=== PATIENT | male | born 1955 | race Caucasian/White ===

== ENCOUNTER 2019-07-25 07:09 | Outpatient (REF) | payer OTHER, SELFPAY ==
[2019-07-25 11:10] LABS: Estmated Average Glucose 120; Hemoglobin A1C 5.8 % (4.0-6.0)
[2019-07-25 11:36] LABS: Prostate Specific Antigen 0.91 ng/mL (0-4)
[2019-07-25 11:48] LABS: Chol HDL Ratio 7.61 mg/dL (1.0-5.00); Cholesterol 213 mg/dL (0-200); Glucose 98 mg/dL (65-115); HDL Cholesterol 28 mg/dL (60-100); LDL Cholesterol Calculated 116 mg/dL (50-129); LDL HDL Ratio 4.14 RATIO (0.00-3.22); Triglycerides 344 mg/dL (0-150)
[2019-07-25 12:11] LABS: Basophils % 0.8 %; Eosinophils # 0.2 10^3/uL (0.0-0.8); Eosinophils % 3.7 %; Hematocrit 45.3 % (42.0-52.0); Hemoglobin 15.3 g/dL (11.7-16.6); Lymphocytes # 1.4 10^3/uL (0.8-4.8); Mean Corpuscular HGB Conc 33.8 g/dL (30.0-36.0); Mean Corpuscular Hemoglobin 29.1 pg (28.0-34.0); Mean Corpuscular Volume 86.3 fL (80-94); Mean Platelet Volume 11.1 fL (7.4-10.4); Monocytes # 0.5 10^3/uL (0.2-0.9); Monocytes % 9.6 %; Neutrophils # 2.7 10^3/uL (1.8-7.7); Neutrophils % 56.1 %; Nucleated Red Blood Cells % 0 %; Platelet Count 218 10^3/cmm (130-400); Red Blood Count 5.25 10^6/uL (4.1-5.3); Red Cell Distribution Width 13.3 % (12.1-15.1); White Blood Count 4.9 10^3/uL (4.0-10.0)
== END 2019-07-25 07:10 | disposition home or self-care (01) ==
LOC: LAB 07:09
PROVIDERS: Family Provider Family Medicine; PCP Physician Assistant; Visit Provider Dermatology
DX: Z01.89 Encounter for other specified special examinations (principal)
CPT/HCPCS: 80061; 82947; 83036; 84153; 85025

== ENCOUNTER 2020-05-21 13:56 | Outpatient (CLI) | payer MEDICARE, SELFPAY ==
[2020-05-21 15:03] LABS: Basophils # 0.1 10^3/uL (0.0-0.1); Basophils % 0.6 %; Eosinophils # 0.1 10^3/uL (0.0-0.8); Eosinophils % 1.2 %; Hematocrit 32.7 % (42.0-52.0); Hemoglobin 10.9 g/dL (11.7-16.6); Lymphocytes # 0.7 10^3/uL (0.8-4.8); Lymphocytes % 6.9 %; Mean Corpuscular HGB Conc 33.3 g/dL (30.0-36.0); Mean Corpuscular Hemoglobin 27.6 pg (28.0-34.0); Mean Corpuscular Volume 82.8 fL (80-94); Mean Platelet Volume 9.6 fL (7.4-10.4); Monocytes # 0.7 10^3/uL (0.2-0.9); Monocytes % 6.8 %; Neutrophils # 8.09 10^3/uL (1.8-7.7); Neutrophils % 79.8 %; Nucleated Red Blood Cells % 0 %; Platelet Count 429 10^3/cmm (130-400); Red Blood Count 3.95 10^6/uL (4.1-5.3); Red Cell Distribution Width 13.8 % (12.1-15.1); White Blood Count 10.1 10^3/uL (4.0-10.0)
[2020-05-21 15:29] LABS: Alanine Aminotransferase 44 U/L (0-41); Albumin Level 3.4 g/dL (3.5-5.2); Alkaline Phosphatase 277 IU/L (40-130); Anion Gap 30.7 (5-19); Aspartate Amino Transferase 21 U/L (0-40); C Reactive Protein 182.7 mg/L (0.0-4.9); Calcium 8.9 mg/dL (8.5-10.5); Carbon Dioxide 15 mmol/L (22-29); Chloride 95 mmol/L (98-107); Free T4 Free Thyroxine 0.94 ng/dL (0.82-1.77); Globulin 3.5 g/dL (1.3-4.6); Glomerular Filtration Rate 3.3 mL/min (90-130); Glucose 107 mg/dL (65-115); Potassium 5.7 mmol/L (3.5-5.1); Sodium 135 mmol/L (136-145); Total Bilirubin 0.9 mg/dL (0.15-1.2); Total Protein 6.9 g/dL (6.6-8.7)
[2020-05-21 15:39] LABS: Blood Urea Nitrogen 168 mg/dL (8-23); Osmolality Calculated 336 mOsm/kg (285-295)
== END 2020-05-21 13:57 | disposition home or self-care (01) ==
LOC: LAB 14:00
PROVIDERS: PCP Physician Assistant; Visit Provider Family Medicine
DX: M10.00 Idiopathic gout, unspecified site (principal); R29.2 Abnormal reflex
CPT/HCPCS: 80053; 84439; 84550; 85025; 86140

== ENCOUNTER 2020-05-21 16:13 | Inpatient (IN) | payer MEDICARE, SELFPAY ==
[2020-05-21] VITALS (9 sets, daily range): BP systolic 137–187; BP diastolic 73–97; PULSE 59–81; RESP 12–20; TEMP 36.7; O2SAT 96–98; BMI 26.3
--- NOTE | 2020-05-21 16:35 | XRR_ITS ---
PROCEDURE INFORMATION: Exam: XR Chest, 1 View Exam date and time: 05/21/2020 4:52 PM Age: 64 years old Clinical indication: Cough; Additional info: Dyspnea/cough TECHNIQUE: Imaging protocol: XR of the chest Views: 1 view. COMPARISON: CR XR chest 2V* [id number] 05/21/2020 10:58 AM FINDINGS: Lungs: Unremarkable. No consolidation. Pleural space: Unremarkable. No pleural effusion. No pneumothorax. Heart/Mediastinum: Unremarkable. No cardiomegaly. Bones/joints: Unremarkable. XR/XR chest 1V portable [id number] IMPRESSION: No acute findings.
--- NOTE | 2020-05-21 16:36 | ECG_ITS ---
[facility] Test Date: 2020-05-21 Pat Name: Mikey Godinez Department: Room: Gender: Male Access Clinician: : 1955 Requested By: Tutu Jose Order Number: [id number] [place] MD: Kirsten Alvarez M.D. Measurements Intervals [place] Rate: 66 P: 16 MD: 151 QRS: 47 QRSD: 88 T: 51 QT: 377 QTc: 396 Interpretive Statements SINUS RHYTHM No previous ECG available for comparison Electronically Signed On 05-21-2020 19:15:53 ELECTRICIAN CRANE MAINTENANCE by Kirsten Alvarez M.D. [id number]
[2020-05-21 16:50] LABS: ABG PCO2 25.5 mmHg (35-45); ABG PH Result 7.29 (7.35-7.45); Alveolar-Arterial Oxygen Gradi 1.7 mmHg (5-10); Arterial Blood Gas Hematocrit 31.9 % (42-52); Base Excess ABG -12.6 mmol/L (-2.0-2.0); Blood Gas Allen Test Pos; Blood Gas Sample Site Radial, right; Blood Gas Sample Type Arterial; Carboxyhemoglobin 0.8 %THgb (0.4-20.1); HCO3 ABG 12.4 mmol/L (22-26); Ionized Calcium Level - ABG 1.1 mmol/L (1.1-1.4); Methemoglobin 0.9 % (0.4-1.5); Oxygen Device ROOM AIR; Oxygen Saturation ABG 97.7; Potassium Level - ABG 5.5 mmol/L (3.5-5.0); Total Hemoglobin 10.4 g/dL (14-18)
--- NOTE | 2020-05-21 17:27 | USR_ITS ---
PROCEDURE INFORMATION: Exam: US Retroperitoneal; Complete; Kidneys and Bladder Exam date and time: 05/21/2020 6:30 PM Age: 64 years old Clinical indication: Other: Labs; Additional info: Acute renal failure TECHNIQUE: Imaging protocol: Real-time ultrasound of the retroperitoneum with image documentation. Complete exam focused on the kidneys and bladder. COMPARISON: No relevant prior studies available. FINDINGS: Right kidney: The right kidney measures 10.4 x 5.7 x 6.0 cm. No mass, cyst, calculus, or hydronephrosis. Left kidney: The left kidney measures 13.2 x 6.3 x 6.5 cm. No mass, cyst, calculus, or hydronephrosis. Urinary bladder: The urinary bladder is decompressed. US/US renal BI* [id number] IMPRESSION: Unremarkable renal ultrasound.
--- NOTE | 2020-05-21 18:07 | ED_ITS ---
Documented by User: Miles Mars DO 05/22/20 04:06 HPI - Recheck/Abnormal Lab/Rx General: Chief Complaint: Recheck/Abnormal Lab/Rx Stated Complaint: KIDNEY FAILURE Time Seen by Provider: 05/21/20 16:34 PFSH ED PFSH: Medical History Gout Surgical History H/O left inguinal hernia repair Laparoscopic extraperitoneal History of circumcision Normal colonoscopy 03/2007 Family History Brother Cancer Prostate Other Osteoarthritis Osteoporosis Denies family history of Anesthesia complication Bleeding disorder Social History Smoking and tobacco status: never smoked Alcohol intake: current Alcohol intake frequency: holidays/special occasions only Lives independently: Yes Household members: spouse Marital status: Current occupational status: employed Course Vital Signs: Vital signs: Vital Signs Temperature 97.6 F 05/22/20 04:00 Pulse Rate 59 L 05/22/20 04:00 Respiratory Rate 18 05/22/20 04:00 Blood Pressure 161/87 05/22/20 04:00 Pulse Oximetry 100 05/22/20 04:00 MDM - Recheck/Abnormal Lab/Rx MDM Narrative: Medical decision making narrative: 64-year-old male checked out to me by Dr. Slade at shift change. This gentleman had been sent over from his primary care physician's office, not feeling well. He was found to be in renal failure there. His BUN is 172. His creatinine is 16.2. His potassium is 6.3. He has been given insulin, glucose, and albuterol for this for the time being. His hemoglobin is 10. He has a gap in the 30s, with a pH of 7.29 on blood gas. He is not making any urine currently. He has no obstructive symptoms at all. Renal ultrasound appears normal by report. He will be admitted with nephrology consultation. Lab Data: Labs: Lab Results 05/21/20 05/21/20 05/21/20 Range/Units 16:35 18:16 18:16 WBC 9.8 (4.0-10.0) 10^3/ uL RBC 3.59 L (4.1-5.3) 10^6/u L Hgb 9.9 L (11.7-16.6) g/dL Hct 29.7 L (42.0-52.0) % MCV 82.7 (80-94) fL MCH 27.6 L (28.0-34.0) pg MCHC 33.3 (30.0-36.0) g/dL RDW 13.9 (12.1-15.1) % Plt Count 385 (130-400) 10^3/c mm MPV 9.4 (7.4-10.4) fL Neut % (Auto) 89.0 % Lymph % (Auto) 4.2 % [place] % (Auto) 2.2 % Eos % (Auto) 0.4 % Baso % (Auto) 0.3 % Neut # (Auto) 8.74 H (1.8-7.7) 10^3/u L Lymph # (Auto) 0.4 L (0.8-4.8) 10^3/u L [place] # (Auto) 0.2 (0.2-0.9) 10^3/u L Eos # (Auto) 0.0 (0.0-0.8) 10^3/u L Baso # (Auto) 0.0 (0.0-0.1) 10^3/u L Nucleated RBC % (a uto) 0 % Nucleated RBCs # 0.0 /100WBC Specimen Type Arterial Sample Site Radial, right ABG pH 7.29 L (7.35-7.45) ABG pCO2 25.5 L (35-45) mmHg ABG pO2 103.0 H (80.0-100.0) mmH g ABG HCO3 12.4 L (22-26) mmol/L ABG O2 Saturation 97.7 ABG Base Excess -12.6 L (-2.0-2.0) mmol/ L Micha Test Pos A-a O2 Gradient 1.7 L (5-10) mmHg Hematocrit 31.9 L (42-52) % Hgb O2 Saturation 96.0 (95-100) % Carboxyhemoglobin 0.8 (0.4-20.1) %THgb Methemoglobin 0.9 (0.4-1.5) % Total Hemoglobin 10.4 L (14-18) g/dL Sodium 135.0 134 L (131-143) mmol/L Potassium 5.5 H 6.3 H (3.5-5.0) mmol/L Glucose 142.0 H 144 H (70-115) mg/dL Ionized Calcium 1.1 (1.1-1.4) mmol/L O2 Delivery Device Room air FiO2 21.0 % Wine Cellar Worker ID Jlg Chloride 95 L (98-107) mmol/L Carbon Dioxide 13 L (22-29) mmol/L Anion Gap 32.3 H (5-19) BUN 172 H* (8-23) mg/dL Creatinine 16.2 H* (0.7-1.2) mg/dL GFR Calculation 3.0 L (90-130) mL/min Calculated Osmolal ity 337 H (285-295) mOsm/k g Lactic Acid (0.5-2.2) mmol/L Calcium 8.8 (8.5-10.5) mg/dL Phosphorus 10.3 H* (2.5-4.5) mg/dL Magnesium 2.9 H (1.7-2.3) mg/dL Total Bilirubin 0.8 (0.15-1.2) mg/dL AST 16 (0-40) U/L ALT 38 (0-41) U/L Alkaline Phosphata se 248 H (40-130) IU/L Creatine Kinase 60 (39-308) U/L Troponin T Baselin e (0-15) ng/L Total Protein 7.2 (6.6-8.7) g/dL Albumin 3.2 L (3.5-5.2) g/dL Globulin 4.0 (1.3-4.6) g/dL 05/21/20 05/21/20 Range/Units 18:16 18:16 WBC (4.0-10.0) 10^3/ uL RBC (4.1-5.3) 10^6/u L Hgb (11.7-16.6) g/dL Hct (42.0-52.0) % MCV (80-94) fL MCH (28.0-34.0) pg MCHC (30.0-36.0) g/dL RDW (12.1-15.1) % Plt Count (130-400) 10^3/c mm MPV (7.4-10.4) fL Neut % (Auto) % Lymph % (Auto) % [place] % (Auto) % Eos % (Auto) % Baso % (Auto) % Neut # (Auto) (1.8-7.7) 10^3/u L Lymph # (Auto) (0.8-4.8) 10^3/u L [place] # (Auto) (0.2-0.9) 10^3/u L Eos # (Auto) (0.0-0.8) 10^3/u L Baso # (Auto) (0.0-0.1) 10^3/u L Nucleated RBC % (a uto) % Nucleated RBCs # /100WBC Specimen Type Sample Site ABG pH (7.35-7.45) ABG pCO2 (35-45) mmHg ABG pO2 (80.0-100.0) mmH g ABG HCO3 (22-26) mmol/L ABG O2 Saturation ABG Base Excess (-2.0-2.0) mmol/ L Micha Test A-a O2 Gradient (5-10) mmHg Hematocrit (42-52) % Hgb O2 Saturation (95-100) % Carboxyhemoglobin (0.4-20.1) %THgb Methemoglobin (0.4-1.5) % Total Hemoglobin (14-18) g/dL Sodium (131-143) mmol/L Potassium (3.5-5.0) mmol/L Glucose (70-115) mg/dL Ionized Calcium (1.1-1.4) mmol/L O2 Delivery Device FiO2 % Wine Cellar Worker ID Chloride (98-107) mmol/L Carbon Dioxide (22-29) mmol/L Anion Gap (5-19) BUN (8-23) mg/dL Creatinine (0.7-1.2) mg/dL GFR Calculation (90-130) mL/min Calculated Osmolal ity (285-295) mOsm/k g Lactic Acid 0.5 (0.5-2.2) mmol/L Calcium (8.5-10.5) mg/dL Phosphorus (2.5-4.5) mg/dL Magnesium (1.7-2.3) mg/dL Total Bilirubin (0.15-1.2) mg/dL AST (0-40) U/L ALT (0-41) U/L Alkaline Phosphata se (40-130) IU/L Creatine Kinase (39-308) U/L Troponin T Baselin e 60 H (0-15) ng/L Total Protein (6.6-8.7) g/dL Albumin (3.5-5.2) g/dL Globulin (1.3-4.6) g/dL Discharge Plan Discharge Patient Disposition: Admitted As Inpatient Admit Provider: Myron Osorio Clinical Impression: Acute kidney injury superimposed on chronic kidney disease Condition: Stable Coding Level of Care Code ED Autism Tutor for Chg Fwd Documented by User: Tutu Slade DO 05/22/20 09:19 HPI - Recheck/Abnormal Lab/Rx General: Chief Complaint: Recheck/Abnormal Lab/Rx Stated Complaint: KIDNEY FAILURE Time Seen by Provider: 05/21/20 16:34 History of Present Illness: HPI narrative: 64-year-old male presents emergency room at the direction of his PCP. He has not seen his PCP for quite some time went there to see him for gout swelling the legs and concern of elevated blood pressure. Laboratory work done there showed a creatinine that was markedly elevated at over 15 patient was directed here. His biggest complaint here is a swelling and discomfort in his legs as well as a generalized just not feeling we ll lately. He has noticed some tremors as well as markedly decreased urine output recently. MD complaint: abnormal lab Initial visit (ago): hour(s) Initial visit for: other Returns today for: called because of abnormal lab/test Symptoms since prior visit: worsening swelling Associated symptoms: shortness of breath, rash, malaise and nausea Review of Systems Const: Denies: fever(s), chills, body aches, change in appetite, fatigue or malaise ENMT: Denies: throat pain, ear or mastoid pain, nasal discharge or nasal congestion Card: Denies: chest pain, edema, dyspnea on exertion or orthopnea Resp: Denies: dyspnea, productive cough or non-productive cough GI: Denies: abdominal pain, nausea, vomiting, hematemesis, coffee ground emesis, diarrhea, constipation, bloating, hematochezia or melena : Denies: flank pain, dysuria, urinary frequency or urinary urgency Skin/Breast: Denies: rash or pruritus PFSH ED PFSH: Medical History Gout Surgical History H/O left inguinal hernia repair Laparoscopic extraperitoneal History of circumcision Normal colonoscopy 03/2007 Family History Brother Cancer Prostate Other Osteoarthritis Osteoporosis Denies family history of Anesthesia complication Bleeding disorder Social History Smoking and tobacco status: never smoked Alcohol intake: current Alcohol intake frequency: holidays/special occasions only Lives independently: Yes Household members: spouse Marital status: Current occupational status: employed Physical Exam Const: COMMON NORMALS: no acute distress GENERAL APPEARANCE: cooperative and comfortable ORIENTATION/CONSCIOUSNESS: Yes awake, Yes oriented to person, Yes oriented to place and Yes oriented to time HENMT: COMMON NORMALS: normocephalic, atraumatic and hearing grossly normal bilaterally HEAD & SCALP: normocephalic and atraumatic Eye: COMMON NORMALS: Equal, round and reactive pupils present, EOMs intact bilaterally, conjunctivae normal and no scleral icterus CONJUNCTIVA: Yes conjunctivae normal PUPIL: Yes Equal, round and reactive pupils present Neck/C-Spine: COMMON NORMALS: no JVD Lymph: LYMPHATIC: no lymphadenopathy noted and no lymphedema noted Resp: COMMON NORMALS: normal respiratory effort, No retractions, No use of accessory muscles and clear to auscultation bilaterally AUSCULTATION: clear to auscultation bilaterally Cardio: COMMON NORMALS: no JVD, regular rate, regular rhythm and No murmurs present (Cardio) RATE: regular rate RHYTHM: regular rhythm GI: COMMON NORMALS: Soft to palpation and No hepatosplenomegaly present AUSCULTATION: Yes normoactive bowel sounds PALPATION: Yes Soft to palpation, No Tenderness to palpation present (GI), No Guarding due to palpation present (GI) and Yes No hepatosplenomegaly present Extremity: COMMON NORMALS: normal to inspection, capillary refill normal, no clubbing, cyanosis or edema, no calf tenderness and no pedal edema Neuro: SENSORIUM/ORIENTATION: Yes oriented to person, Yes oriented to place and Yes oriented to time Skin: COMMON NORMALS: no rashes or lesions noted GENERAL SKIN EXAM: no rashes or lesions noted Course Vital Signs: Vital signs: Vital Signs Temperature 97.6 F 05/22/20 04:00 Pulse Rate 59 L 05/22/20 04:00 Respiratory Rate 18 05/22/20 04:00 Blood Pressure 161/87 05/22/20 04:00 Pulse Oximetry 100 05/22/20 04:00 MDM - Recheck/Abnormal Lab/Rx MDM Narrative: Medical decision making narrative: Acute renal failure with creatinine done earlier today at 15 1. Patient will be admitted almost certainly. Lab results not back yet discussed with Dr. Mars he will assume care of patient see his notes for final diagnosis and disposition Lab Data: Labs: Lab Results 05/21/20 05/21/20 05/21/20 Range/Units 16:35 18:16 18:16 WBC 9.8 (4.0-10.0) 10^3/ uL RBC 3.59 L (4.1-5.3) 10^6/u L Hgb 9.9 L (11.7-16.6) g/dL Hct 29.7 L (42.0-52.0) % MCV 82.7 (80-94) fL MCH 27.6 L (28.0-34.0) pg MCHC 33.3 (30.0-36.0) g/dL RDW 13.9 (12.1-15.1) % Plt Count 385 (130-400) 10^3/c mm MPV 9.4 (7.4-10.4) fL Neut % (Auto) 89.0 % Lymph % (Auto) 4.2 % [place] % (Auto) 2.2 % Eos % (Auto) 0.4 % Baso % (Auto) 0.3 % Neut # (Auto) 8.74 H (1.8-7.7) 10^3/u L Lymph # (Auto) 0.4 L (0.8-4.8) 10^3/u L [place] # (Auto) 0.2 (0.2-0.9) 10^3/u L Eos # (Auto) 0.0 (0.0-0.8) 10^3/u L Baso # (Auto) 0.0 (0.0-0.1) 10^3/u L Nucleated RBC % (a uto) 0 % Nucleated RBCs # 0.0 /100WBC Specimen Type Arterial Sample Site Radial, right ABG pH 7.29 L (7.35-7.45) ABG pCO2 25.5 L (35-45) mmHg ABG pO2 103.0 H (80.0-100.0) mmH g ABG HCO3 12.4 L (22-26) mmol/L ABG O2 Saturation 97.7 ABG Base Excess -12.6 L (-2.0-2.0) mmol/ L Micha Test Pos A-a O2 Gradient 1.7 L (5-10) mmHg Hematocrit 31.9 L (42-52) % Hgb O2 Saturation 96.0 (95-100) % Carboxyhemoglobin 0.8 (0.4-20.1) %THgb Methemoglobin 0.9 (0.4-1.5) % Total Hemoglobin 10.4 L (14-18) g/dL Sodium 135.0 134 L (131-143) mmol/L Potassium 5.5 H 6.3 H (3.5-5.0) mmol/L Glucose 142.0 H 144 H (70-115) mg/dL Ionized Calcium 1.1 (1.1-1.4) mmol/L O2 Delivery Device Room air FiO2 21.0 % Wine Cellar Worker ID Jlg Chloride 95 L (98-107) mmol/L Carbon Dioxide 13 L (22-29) mmol/L Anion Gap 32.3 H (5-19) BUN 172 H* (8-23) mg/dL Creatinine 16.2 H* (0.7-1.2) mg/dL GFR Calculation 3.0 L (90-130) mL/min Calculated Osmolal ity 337 H (285-295) mOsm/k g Lactic Acid (0.5-2.2) mmol/L Calcium 8.8 (8.5-10.5) mg/dL Phosphorus 10.3 H* (2.5-4.5) mg/dL Magnesium 2.9 H (1.7-2.3) mg/dL Total Bilirubin 0.8 (0.15-1.2) mg/dL AST 16 (0-40) U/L ALT 38 (0-41) U/L Alkaline Phosphata se 248 H (40-130) IU/L Creatine Kinase 60 (39-308) U/L Troponin T Baselin e (0-15) ng/L Total Protein 7.2 (6.6-8.7) g/dL Albumin 3.2 L (3.5-5.2) g/dL Globulin 4.0 (1.3-4.6) g/dL 05/21/20 05/21/20 Range/Units 18:16 18:16 WBC (4.0-10.0) 10^3/ uL RBC (4.1-5.3) 10^6/u L Hgb (11.7-16.6) g/dL Hct (42.0-52.0) % MCV (80-94) fL MCH (28.0-34.0) pg MCHC (30.0-36.0) g/dL RDW (12.1-15.1) % Plt Count (130-400) 10^3/c mm MPV (7.4-10.4) fL Neut % (Auto) % Lymph % (Auto) % [place] % (Auto) % Eos % (Auto) % Baso % (Auto) % Neut # (Auto) (1.8-7.7) 10^3/u L Lymph # (Auto) (0.8-4.8) 10^3/u L [place] # (Auto) (0.2-0.9) 10^3/u L Eos # (Auto) (0.0-0.8) 10^3/u L Baso # (Auto) (0.0-0.1) 10^3/u L Nucleated RBC % (a uto) % Nucleated RBCs # /100WBC Specimen Type Sample Site ABG pH (7.35-7.45) ABG pCO2 (35-45) mmHg ABG pO2 (80.0-100.0) mmH g ABG HCO3 (22-26) mmol/L ABG O2 Saturation ABG Base Excess (-2.0-2.0) mmol/ L Micha Test A-a O2 Gradient (5-10) mmHg Hematocrit (42-52) % Hgb O2 Saturation (95-100) % Carboxyhemoglobin (0.4-20.1) %THgb Methemoglobin (0.4-1.5) % Total Hemoglobin (14-18) g/dL Sodium (131-143) mmol/L Potassium (3.5-5.0) mmol/L Glucose (70-115) mg/dL Ionized Calcium (1.1-1.4) mmol/L O2 Delivery Device FiO2 % Wine Cellar Worker ID Chloride (98-107) mmol/L Carbon Dioxide (22-29) mmol/L Anion Gap (5-19) BUN (8-23) mg/dL Creatinine (0.7-1.2) mg/dL GFR Calculation (90-130) mL/min Calculated Osmolal ity (285-295) mOsm/k g Lactic Acid 0.5 (0.5-2.2) mmol/L Calcium (8.5-10.5) mg/dL Phosphorus (2.5-4.5) mg/dL Magnesium (1.7-2.3) mg/dL Total Bilirubin (0.15-1.2) mg/dL AST (0-40) U/L ALT (0-41) U/L Alkaline Phosphata se (40-130) IU/L Creatine Kinase (39-308) U/L Troponin T Baselin e 60 H (0-15) ng/L Total Protein (6.6-8.7) g/dL Albumin (3.5-5.2) g/dL Globulin (1.3-4.6) g/dL Discharge Plan Discharge Patient Disposition: Admitted As Inpatient Admit Provider: Myron Osorio Clinical Impression: Acute kidney injury superimposed on chronic kidney disease Condition: Stable Coding Level of Care Code ED Autism Tutor for Candy Fallon
[2020-05-21 18:34] LABS: Basophils % 0.3 %; Eosinophils % 0.4 %; Hematocrit 29.7 % (42.0-52.0); Hemoglobin 9.9 g/dL (11.7-16.6); Lymphocytes # 0.4 10^3/uL (0.8-4.8); Lymphocytes % 4.2 %; Mean Corpuscular HGB Conc 33.3 g/dL (30.0-36.0); Mean Corpuscular Hemoglobin 27.6 pg (28.0-34.0); Mean Corpuscular Volume 82.7 fL (80-94); Mean Platelet Volume 9.4 fL (7.4-10.4); Monocytes # 0.2 10^3/uL (0.2-0.9); Monocytes % 2.2 %; Neutrophils # 8.74 10^3/uL (1.8-7.7); Nucleated Red Blood Cells % 0 %; Platelet Count 385 10^3/cmm (130-400); Red Blood Count 3.59 10^6/uL (4.1-5.3); Red Cell Distribution Width 13.9 % (12.1-15.1); White Blood Count 9.8 10^3/uL (4.0-10.0)
[2020-05-21 19:01] LABS: Lactic Sepsis W/Reflex 0.5 mmol/L (0.5-2.2)
[2020-05-21 19:02] LABS: Alanine Aminotransferase 38 U/L (0-41); Albumin Level 3.2 g/dL (3.5-5.2); Alkaline Phosphatase 248 IU/L (40-130); Anion Gap 32.3 (5-19); Aspartate Amino Transferase 16 U/L (0-40); Calcium 8.8 mg/dL (8.5-10.5); Carbon Dioxide 13 mmol/L (22-29); Chloride 95 mmol/L (98-107); Creatine Phosphokinase 60 U/L (39-308); Glucose 144 mg/dL (65-115); Magnesium 2.9 mg/dL (1.7-2.3); Potassium 6.3 mmol/L (3.5-5.1); Sodium 134 mmol/L (136-145); Total Bilirubin 0.8 mg/dL (0.15-1.2); Total Protein 7.2 g/dL (6.6-8.7)
[2020-05-21 19:04] LABS: Troponin(5th) Baseline 60 ng/L (0-15)
[2020-05-21 19:13] LABS: Blood Urea Nitrogen 172 mg/dL (8-23); Osmolality Calculated 337 mOsm/kg (285-295); Phosphorus 10.3 mg/dL (2.5-4.5)
[2020-05-21] MEDS: insulin regular-human 100 units/1 mL 10 UNIT IVP (20:10)
[2020-05-21] MEDS: dextrose 50% syringe 50 mL IVP (20:12)
--- NOTE | 2020-05-21 20:51 | PM.HP ---
Providers/Chief Complaint Primary Care Provider: Nery Peñaloza Chief Complaint: KIDNEY FAILURE History of Present Illness Mikey Godinez is a 64 year old male with past medical history of recently diagnosed gout, currently on prednisone, was sent in by his primary care physician after he found that his BUN and creatinine severely derailed on routine lab work-up (BUN 172/serum creatinine 16.2 ).Currently he is complaining of abnormal sensations around his belly, dry heaves, nausea.He denies any chest pain, shortness of breath, headache, fever, cough, back pain, abdominal pain. Patient was at his primary care physician for gout management, he was started on prednisone, and routine labs were done. According to the patient his p.o. oral intake has been poor routinely due to his work, denies any use of NSAIDs, he denies any use of herbal medication.He denies any known past medical history of hypertension and diabetes. He does make urine but his urine output has progressively decreased,deny any difficulty passing urine. ECA Course: Pertinent Labs: BUN/SCR: 172/16.2 , K: 6.3 , Phosphorus : 10.3 , Ma.9 H/H: 9.9/ AB.29, PCO2: 25, PO2: 103 HCO3: 13 Imaging study : Xray chest : B/L Clear lungs gasca , no infiltrate, no pulmonary congestion, no PTX, No Pleural effusion. US renal BI: Right kidney: The right kidney measures 10.4 x 5.7 x 6.0 cm. No mass, cyst, calculus, or hydronephrosis. Left kidney: The left kidney measures 13.2 x 6.3 x 6.5 cm. No mass, cyst, calculus, or hydronephrosis. Urinary bladder: The urinary bladder is decompressed. XR thoracic spine 3V: Negative thoracic spine. EKG: SINUS RHYTHM.With Peaked T wave, Rate: 66, Qtc: 396 , GA: 151 ,QRS: 47 Medication : Hyperkalemia Cocktail was given : 10 U Regular insulin, Dextorse Review of Systems Const: Denies: fever(s), chills, body aches, change in appetite or diaphoresis Card: Denies: palpitations, edema, swelling of feet/ankles, dyspnea on exertion, orthopnea or leg pain with exertion Resp: Denies: dyspnea, productive cough, wheezing or pain on inspiration GI: Denies: abdominal pain, vomiting, diarrhea or constipation : Denies: flank pain Musc: Denies: back pain, extremity pain or extremity swelling Neuro: Denies: headache(s) or difficulty walking Medications/Allergies Home Medications Medication Instructions Recorded Confirmed Last Taken Type ascorbic acid (vitamin C) [Vitamin 500 mg PO DAILY PRN 05/21/20 05/21/20 Unknown History C] cholecalciferol (vitamin D3) 2,000 unit PO DAILY PRN 05/21/20 05/21/20 Unknown History [Vitamin D3] cyanocobalamin (vitamin B-12) 100 mcg PO DAILY PRN 05/21/20 05/21/20 Unknown History [Vitamin B-12] prednisone See Rx Instructions .ROUTE .COMPLEX 05/21/20 05/21/20 05/21/20 15:00 History 4 tabs first dose sildenafil 25 - 50 mg PO PRN 05/21/20 05/21/20 Unknown History Allergies Allergy/AdvReac Type Severity Reaction Status Date / Time Penicillins Allergy Unknown Verified 05/21/20 17:25 PFSH Acute PFSH: Surgical History H/O left inguinal hernia repair History of circumcision Family History Brother Cancer Prostate Other Osteoarthritis Osteoporosis Denies family history of Anesthesia complication Bleeding disorder Social History Smoking and tobacco status: never smoked Alcohol intake: current Alcohol intake frequency: holidays/special occasions only Lives independently: Yes Household members: spouse Marital status: Current occupational status: employed Vitals/I&O/Wt Last Vital Signs Temp 98.0 F 05/21/20 16:19 Pulse 63 05/21/20 18:30 Resp 20 H 05/21/20 18:30 BP 155/89 05/21/20 18:30 Pulse Ox 97 05/21/20 18:30 Weight last 48 hrs Weight 76.204 kg Physical Exam Const: COMMON NORMALS: patient oriented x3 HENMT: COMMON NORMALS: normocephalic and atraumatic HEAD & SCALP: normocephalic and atraumatic EXTERNAL EAR: Yes external ears normal Eye: COMMON NORMALS: no scleral icterus GENERAL EYE: appearance normal, both eyes and all related structures Chest: COMMONS NORMALS: normal inspection of the chest and normal palpation of entire chest wall CHEST: Yes Symmetrical chest wall rise Resp: COMMON NORMALS: normal respiratory effort, No retractions, No use of accessory muscles and clear to auscultation bilaterally EFFORT & INSPECTION: Yes symmetric chest movement AUSCULTATION: clear to auscultation bilaterally Cardio: COMMON NORMALS: regular rate, regular rhythm, S1 normal heart sound present, S2 normal heart sound present, No gallops present (Cardio), No murmurs present (Cardio), No rub (Cardio) and Peripheral pulses 2+ throughout RATE: regular rate RHYTHM: regular rhythm HEART SOUNDS: S1 normal heart sound present and S2 normal heart sound present PERIPHERAL PULSES: Peripheral pulses 2+ throughout GI: COMMON NORMALS: Normal to inspection, nondistended, normoactive bowel sounds present, Soft to palpation, non-tender, No hepatosplenomegaly present and no masses AUSCULTATION: Yes normoactive bowel sounds PALPATION: Yes Soft to palpation and Yes No hepatosplenomegaly present RECTAL EXAM: Yes deferred : COMMON NORMALS: Yes no CVA tenderness BLADDER/KIDNEY EXAM: Yes no CVA tenderness Back/Pelvis: COMMON NORMALS: no CVA tenderness Extremity: COMMON NORMALS: no clubbing, cyanosis or edema and no pedal edema Neuro: COMMON NORMALS: patient oriented x3 Data : 05/21/20 18:16 05/21/20 18:16 A&P Assessment and plan (1) Acute kidney injury superimposed on chronic kidney disease: LOS on Progressively worseing CKD Stage III/IV I.V Hydration 125 cc hr Random Urine sodium, creatinine, protein Measure intake/ output Renal consult in am for Possible H.D Avoid Nephrotoxic medications Status: Acute (2) Hyperkalemia: Came in with SCR of :6.3 EKG: SINUS RHYTHM.With Peaked T wave, Rate: 66, Qtc: 396 , GA: 151 ,QRS: 47 Hyperkalemia Cocktail was given : 10 U Regular insulin, Dextorse Monitor BMP. Status: Acute (3) Gout: Currently on Prednisone 40 mg oral daily Status: Acute (4) Anemia: Likely anemia of Chronic kidney disease. Anemia Director Of Retention CBC for now. No need for transfusion. Status: Acute (5) Hyperphosphatemia: Calcium acetate 1334 mo po TID with meals Status: Acute (6) Metabolic acidosis: Inc Anion gap metabolic acidosis 2/2 to LOS ON CKD ABG : AB.29, PCO2: 25, PO2: 103 HCO3: 13 Sodium Bicarbonate 1300 mg PO TID Status: Acute Additional A&P Information DVT PPX: Heparin 5000 sc q12 Code Status : Full code Disposition : Home Attestations Medical Necessity Statement*: Patient needs to be in hospital for the management of ARF , Hyperkalemia.Anticipated length of stay greater then 2 midnights. Coding Level of Care Code Acute Bonding And Composite Fabricator for Chg Fwd Diagnoses Acute kidney injury superimposed on chronic kidney disease N17.9; N18.9 Hyperkalemia E87.5 Gout M10.9 Anemia D64.9 Hyperphosphatemia E83.39 Metabolic acidosis E87.2
[2020-05-21] MEDS: sodium chloride 0.9% 1,000 ML 125 ML IV (22:18)
[2020-05-21] MEDS: sodium bicarbonate 650 mg Tablet 1300 MG PO (22:21)
[2020-05-21] MEDS: heparin 5,000 unit/mL INJ 1 mL 5000 UNIT SUBCUT (22:21)
--- NOTE | 2020-05-21 22:36 | ECG_ITS ---
[facility] Test Date: 2020-05-21 Pat Name: Mikey Godinez Department: Room: Gender: Male Abstract Maker: : 1955 Requested By: Tutu Jose Order Number: [id number] [place] MD: Kirsten Alvarez M.D. Measurements Intervals [place] Rate: 59 P: 21 MO: 148 QRS: 55 QRSD: 90 T: 56 QT: 398 QTc: 396 Interpretive Statements SINUS BRADYCARDIA MINIMAL VOLTAGE CRITERIA FOR LVH, CONSIDER NORMAL VARIANT [MEETS CRITERIA IN ONE OF: R(aVL), S(V1), R(V5), R(V5/V6)+S(V1)] Compared to ECG 05/21/2020 17:33:15 Sinus rhythm no longer present Electronically Signed On 05-21-2020 19:29:03 DIRECTOR CLINICAL RESEARCH by Kirsten Alvarez M.D. [id number]
--- NOTE | 2020-05-21 22:59 | PC.NURSE ---
Received patient from ED via wheelchair. Patient is ambulatory ad anton. Patient attempted to urinate without success. Fluids started and medication given as ordered. Discussed medications and fluids. Patient verbalized understanding. Patient diagnosed with gout today and started on prednisone. Patient had only taken one dose prior to admission. Admission completed as documented.
[2020-05-22] VITALS (22 sets, daily range): BP systolic 94–170; BP diastolic 63–90; PULSE 45–80; RESP 12–27; TEMP 35.6–37; O2SAT 97–100
--- NOTE | 2020-05-22 | SCC_ITS ---
Procedure Done: Placement of 16 [place] 28 cm HemoSplit tunneled hemodialysis catheter into the right internal jugular vein with intraoperative ultrasound and fluoroscopy interpretation. 5.5 seconds of fluoroscopic guidance, for a cumulative dose of 0.47 mGy, was provided to Dr. Mckeon by the radiology department. C-arm images of the chest were saved for the patient's permanent record. ABHILASHD
[2020-05-22] MEDS: sodium polystyrene sulfonate 15 gm/60 mL Btl PO (01:07)
[2020-05-22 02:48] LABS: Hematocrit 27.5 % (42.0-52.0); Hemoglobin 9.2 g/dL (11.7-16.6); Mean Corpuscular HGB Conc 33.5 g/dL (30.0-36.0); Mean Corpuscular Hemoglobin 27.8 pg (28.0-34.0); Mean Corpuscular Volume 83.1 fL (80-94); Mean Platelet Volume 9.5 fL (7.4-10.4); Platelet Count 394 10^3/cmm (130-400); Red Blood Count 3.31 10^6/uL (4.1-5.3); Red Cell Distribution Width 13.9 % (12.1-15.1); White Blood Count 5.6 10^3/uL (4.0-10.0)
[2020-05-22 02:54] LABS: INR 1.14 (0.8-1.2)
[2020-05-22 02:55] LABS: Partial Thromboplastin Time 39.6 SECONDS (23.9-36.7)
[2020-05-22 03:13] LABS: Alanine Aminotransferase 36 U/L (0-41); Albumin Level 3.3 g/dL (3.5-5.2); Alkaline Phosphatase 245 IU/L (40-130); Anion Gap 31.6 (5-19); Aspartate Amino Transferase 16 U/L (0-40); Calcium 8.6 mg/dL (8.5-10.5); Carbon Dioxide 13 mmol/L (22-29); Chloride 92 mmol/L (98-107); Globulin 3.9 g/dL (1.3-4.6); Glomerular Filtration Rate 2.9 mL/min (90-130); Glucose 187 mg/dL (65-115); Potassium 5.6 mmol/L (3.5-5.1); Sodium 131 mmol/L (136-145); Total Bilirubin 0.6 mg/dL (0.15-1.2); Total Protein 7.2 g/dL (6.6-8.7)
[2020-05-22 03:28] LABS: Magnesium 2.8 mg/dL (1.7-2.3)
[2020-05-22 03:32] LABS: Phosphorus 10.3 mg/dL (2.5-4.5)
[2020-05-22 03:33] LABS: Blood Urea Nitrogen 167 mg/dL (8-23)
[2020-05-22 03:34] LABS: Osmolality Calculated 332 mOsm/kg (285-295)
[2020-05-22 03:38] LABS: Creatine Phosphokinase 64 U/L (39-308); NT Pro B Type Natriuretic Pept 7411 pg/mL (0-125)
[2020-05-22 03:51] LABS: Slide Review Slide Review Perform
[2020-05-22 03:56] LABS: Lymphocytes 7 %; Monocytes Absolute 0.1 10^3/cmm (0.1-0.6); Segmented Neutrophils 89 %; Total Cells Counted 100 (0-100)
[2020-05-22 03:57] LABS: Eosinophils 0 %; Platelet Estimate Normal (Normal)
[2020-05-22] MEDS: sodium chloride 0.9% 1,000 ML 125 ML IV (04:08)
--- NOTE | 2020-05-22 04:11 | PC.NURSE ---
Addendum entered by Kami Madison RN 05/22/20 04:27: Bladder scan performed. The most urine scanned was 16ml. Scan was performed multiple times, in multiple directions. Informed Dr Osorio and received instructions to stop IV fluids at this time. Patient reports I don't feel the urge or need to pee I just try. Original Note: Patient up to bathroom. Report very small BM with mostly flatulence. Patient only able to produce very few drops of urine. Informed Dr Osorio and received order to perform bladder scan.
--- NOTE | 2020-05-22 07:04 | PC.NURSE ---
called [facility] telenephrology consult
--- NOTE | 2020-05-22 07:07 | P.CONIM_ITS ---
Providers/Reason For Consult Consulting Physican/Specialty*: General Surgery Martin Mckeon MD Reason for Consult*: Requesting tunneled hemodialysis catheter placement. Attending Physician: Myron Osorio MD Primary Care Provider: Nery Peñaloza History of Present Illness History of Present Illness Mikey Godinez is a 64 year old male admitted last night after his BUN and creatinine were found to be severely elevated on lab work. He says that for several weeks he has felt poorly. He has noticed his urine output decreasing. He has felt nauseated, anorexic, and says that his skin has been very sensitive almost like he has had a sunburn. He had some routine lab work and was found to have a creatinine of 16. His potassium was also elevated at 6.3. The patient has been evaluated by nephrology and a tunneled hemodialysis catheter placement has been requested. The patient denies any history of clavicular injury or previous central line placement. Review of Systems General: Reports: 10 or more systems reviewed and unremarkable except in HPI and below Const: Denies: fever(s) GI: Reports: nausea and change in bowel habits (Yellow stools) : Reports: oliguria Skin/Breast: Reports: skin pain Meds/Allergies Home Medications and Allergies Home Medications Medication Instructions Recorded Confirmed Last Taken Type ascorbic acid (vitamin C) [Vitamin 500 mg PO DAILY PRN 05/21/20 05/21/20 Unknown History C] cholecalciferol (vitamin D3) 2,000 unit PO DAILY PRN 05/21/20 05/21/20 Unknown History [Vitamin D3] cyanocobalamin (vitamin B-12) 100 mcg PO DAILY PRN 05/21/20 05/21/20 Unknown History [Vitamin B-12] prednisone See Rx Instructions .ROUTE .COMPLEX 05/21/20 05/21/20 05/21/20 15:00 History 4 tabs first dose sildenafil 25 - 50 mg PO PRN 05/21/20 05/21/20 Unknown History Allergies Allergy/AdvReac Type Severity Reaction Status Date / Time Penicillins AdvReac I just Verified 05/22/20 07:12 did not feel good Current Medications Current Medications Generic Name Dose Route Start Last Admin Trade Name Freq PRN Reason Stop Dose Admin Sodium Chloride 1,000 mls @ 125 mls/hr 05/21/20 20:49 05/22/20 04:26 Sodium Chloride 0.9% IV 0 mls/hr .Q8H QUEENIE Infusion Sodium Bicarbonate 1,300 mg 05/21/20 21:00 05/21/20 22:21 Sodium Bicarbonate 650 Mg Tablet PO 1,300 mg TID QUEENIE Administration PFSH Acute PFSH: Medical History (Updated 05/22/20 @ 07:09 by Martin Mckeon MD) Gout Surgical History (Updated 05/22/20 @ 07:12 by Martin Mckeon MD) H/O left inguinal hernia repair Laparoscopic extraperitoneal History of circumcision Normal colonoscopy 03/2007 Family History Brother Cancer Prostate Other Osteoarthritis Osteoporosis Denies family history of Anesthesia complication Bleeding disorder Social History Smoking and tobacco status: never smoked Alcohol intake: current Alcohol intake frequency: holidays/special occasions only Lives independently: Yes Household members: spouse Marital status: Current occupational status: employed Vitals/I&O/Wt Last Vital Signs Temp 97.6 F 05/22/20 04:00 Pulse 59 L 05/22/20 04:00 Resp 18 05/22/20 04:00 BP 161/87 05/22/20 04:00 Pulse Ox 100 05/22/20 04:00 05/21/20 05/22/20 05/22/20 22:59 06:59 14:59 Intake Total 886.667 / 886.667 Balance 886.667 / 886.667 Weight last 48 hrs Weight 172 lb Weight 172 lb Weight 168 lb Physical Exam Narrative: EXAM NARRATIVE: The patient was encountered in his hospital room. He does not appear to be in any distress. The pupils are equal. No carotid bruits are heard. The lungs are clear anteriorly. The heart is regular. The abdomen is mildly obese but is soft. No obvious masses are palpated. Bowel sounds may be slightly hypoactive. The extremities reveal no edema. Neurologically the patient appears to be grossly intact. A&P Assessment and plan (1) Acute kidney injury: I have discussed tunneled hemodialysis catheters with the patient in some detail. Surgical risks of insertion including bleeding, infection, internal organ injury, etc. were all discussed. The patient seems to understand and is agreeable to proceeding this morning. The patient has been n.p.o. I will make arrangements to proceed with a tunneled hemodialysis catheter placement later this morning. Status: Acute Consult Attestations Medical Necessity Statement: See admitting service's notation. 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
--- NOTE | 2020-05-22 08:07 | PC.NURSE ---
Off unit to Surgery for Tunneled hemodialysis placement procedure Ushered by Jada ULLOA via stretcher
[2020-05-22 08:34] LABS: Calcium 8.6 mg/dL (8.5-10.5)
--- NOTE | 2020-05-22 08:37 | ANES.PREANE2 ---
Pre-Anesthetic Assessment Pre-Anesthetic Assessment: Height/Weight: Height 1.7 m Weight 78.018 kg Temp Pulse Resp BP Pulse Ox 97.6 F 59 L 18 161/87 100 05/22/20 04:00 05/22/20 04:00 05/22/20 04:00 05/22/20 04:00 05/22/20 04:00 Proposed Procedure: Operation Date: 05/22/20 10:05 Proposed Procedures p Dialysis Catheter Insertion, Tunneled(Not Applicable) - Martin Mckeon MD Was Beta Suraj taken within 24 hours: N/A Social: Social History: Tobacco and No alcohol Comment: h/o smoking Exam: Pre-Anes Outpt Exam: alert, oriented x 3, clear to auscultation bilaterally and regular rate & rhythm Airway: Submandibular: WNL Cervical ROM: WNL Dentition: Other Additional comments: Very poor dentition, multiple missing/broken Pulmonary: Pulmonary: COPD CV/HEM: CV/HEM: HTN : : Chronic renal Insufficiency Comments: ARF Hepatic: Hepatic: None reported GI: GI: None reported Metabolic: Metabolic: None reported Comments: Hyperkalemia, 5.6 Musc/skel: Musc/skel: None reported Neuropsych: Neuropsych: None reported Anesthetic Plan: ASA status: 4 Anesthesia: MAC Risk of > 500 ml blood loss (7ml/kg in children): No Meds/Allergies Current Medications: Current Medications Generic Name Dose Route Start Last Admin Trade Name Freq PRN Reason Stop Dose Admin Sodium Chloride 1,000 mls @ 125 m ls/hr 05/21/20 20:49 05/22/20 04:26 Sodium Chloride 0.9% IV 0 mls/hr .Q8H QUEENIE Infusion Sodium Bicarbonate 1,300 mg 05/21/20 21:00 05/21/20 22:21 Sodium Bicarbona te 650 Mg Tablet PO 1,300 mg TID QUEENIE Administration PFSH Anesthesia PFSH: Medical History (Updated 05/22/20 @ 07:12 by Martin Mckeon MD) Gout Surgical History (Updated 05/22/20 @ 07:12 by Martin Mckeon MD) H/O left inguinal hernia repair Laparoscopic extraperitoneal History of circumcision Normal colonoscopy 03/2007 Family History Brother Cancer Prostate Other Osteoarthritis Osteoporosis Denies family history of Anesthesia complication Bleeding disorder Social History Smoking and tobacco status: never smoked Alcohol intake: current Alcohol intake frequency: holidays/special occasions only Lives independently: Yes Household members: spouse Marital status: Current occupational status: employed Data Anesthesia CBC & Chem 7: 05/22/20 02:10 05/22/20 02:10 Other Labs: Laboratory Results - last 48 hr 05/21/20 05/21/20 05/21/20 16:35 18:16 18:16 WBC 9.8 RBC 3.59 L Hgb 9.9 L Hct 29.7 L MCV 82.7 MCH 27.6 L MCHC 33.3 RDW 13.9 Plt Count 385 MPV 9.4 Neut % (Auto) 89.0 Lymph % (Auto) 4.2 Gilliam % (Auto) 2.2 Eos % (Auto) 0.4 Baso % (Auto) 0.3 Neut # (Auto) 8.74 H Lymph # (Auto) 0.4 L Gilliam # (Auto) 0.2 Eos # (Auto) 0.0 Baso # (Auto) 0.0 Nucleated RBC % (auto) 0 Total Counted Atypical Lymphs % Absolute Neutrophils Segmented Neutrophils Abs Segm Neuts (Man) Band Neutrophils Abs Band Neuts (Man) Lymphocytes (Manual) Monocytes (Manual) Absolute Monocytes Eosinophils (Manual) Absolute Eosinophils Basophils (Manual) Absolute Basophils Metamyelocytes Myelocytes Nucleated RBCs # 0.0 Platelet Estimate PT INR APTT Specimen Type Arterial Sample Site Radial, right ABG pH 7.29 L ABG pCO2 25.5 L ABG pO2 103.0 H ABG HCO3 12.4 L ABG O2 Saturation 97.7 ABG Base Excess -12.6 L Micha Test Pos A-a O2 Gradient 1.7 L Hematocrit 31.9 L Hgb O2 Saturation 96.0 Carboxyhemoglobin 0.8 Methemoglobin 0.9 Total Hemoglobin 10.4 L Sodium 135.0 134 L Potassium 5.5 H 6.3 H Glucose 142.0 H 144 H Ionized Calcium 1.1 O2 Delivery Device Room air FiO2 21.0 Fish Flipper ID Jlg Chloride 95 L Carbon Dioxide 13 L Anion Gap 32.3 H BUN 172 H* Creatinine 16.2 H* GFR Calculation 3.0 L Calculated Osmolality 337 H Lactic Acid Calcium 8.8 Phosphorus 10.3 H* Magnesium 2.9 H Total Bilirubin 0.8 AST 16 ALT 38 Alkaline Phosphatase 248 H Creatine Kinase 60 Troponin T Baseline NT-Pro-B Natriuret Pep Total Protein 7.2 Albumin 3.2 L Globulin 4.0 Calcium (PTH Intact) 05/21/20 05/21/20 05/22/20 18:16 18:16 02:10 WBC RBC Hgb Hct MCV MCH MCHC RDW Plt Count MPV Neut % (Auto) Lymph % (Auto) Gilliam % (Auto) Eos % (Auto) Baso % (Auto) Neut # (Auto) Lymph # (Auto) Gilliam # (Auto) Eos # (Auto) Baso # (Auto) Nucleated RBC % (auto) Total Counted Atypical Lymphs % Absolute Neutrophils Segmented Neutrophils Abs Segm Neuts (Man) Band Neutrophils Abs Band Neuts (Man) Lymphocytes (Manual) Monocytes (Manual) Absolute Monocytes Eosinophils (Manual) Absolute Eosinophils Basophils (Manual) Absolute Basophils Metamyelocytes Myelocytes Nucleated RBCs # Platelet Estimate PT 15.00 H INR 1.14 APTT 39.6 H Specimen Type Sample Site ABG pH ABG pCO2 ABG pO2 ABG HCO3 ABG O2 Saturation ABG Base Excess Micha Test A-a O2 Gradient Hematocrit Hgb O2 Saturation Carboxyhemoglobin Methemoglobin Total Hemoglobin Sodium Potassium Glucose Ionized Calcium O2 Delivery Device FiO2 Fish Flipper ID Chloride Carbon Dioxide Anion Gap BUN Creatinine GFR Calculation Calculated Osmolality Lactic Acid 0.5 Calcium Phosphorus Magnesium Total Bilirubin AST ALT Alkaline Phosphatase Creatine Kinase Troponin T Baseline 60 H NT-Pro-B Natriuret Pep Total Protein Albumin Globulin Calcium (PTH Intact) 05/22/20 05/22/20 05/22/20 02:10 02:10 02:10 WBC 5.6 RBC 3.31 L Hgb 9.2 L Hct 27.5 L MCV 83.1 MCH 27.8 L MCHC 33.5 RDW 13.9 Plt Count 394 MPV 9.5 Neut % (Auto) Lymph % (Auto) Not Reportable Gilliam % (Auto) Not Reportable Eos % (Auto) Baso % (Auto) Neut # (Auto) Lymph # (Auto) Not Reportable Gilliam # (Auto) Not Reportable Eos # (Auto) Baso # (Auto) Nucleated RBC % (auto) Total Counted 100 Atypical Lymphs % 0.0 Absolute Neutrophils 5.0 Segmented Neutrophils 89 Abs Segm Neuts (Man) 5.0 Band Neutrophils 0.0 Abs Band Neuts (Man) 0.0 Lymphocytes (Manual) 7 Monocytes (Manual) 1.0 Absolute Monocytes 0.1 Eosinophils (Manual) 0 Absolute Eosinophils 0.0 Basophils (Manual) 0.0 Absolute Basophils 0.0 Metamyelocytes 2.0 Myelocytes 1.0 Nucleated RBCs # Platelet Estimate Normal PT INR APTT Specimen Type Sample Site ABG pH ABG pCO2 ABG pO2 ABG HCO3 ABG O2 Saturation ABG Base Excess Micha Test A-a O2 Gradient Hematocrit Hgb O2 Saturation Carboxyhemoglobin Methemoglobin Total Hemoglobin Sodium Potassium Glucose Ionized Calcium O2 Delivery Device FiO2 Fish Flipper ID Chloride Carbon Dioxide Anion Gap BUN Creatinine GFR Calculation Calculated Osmolality Lactic Acid Calcium Phosphorus 10.3 H* Magnesium 2.8 H Total Bilirubin AST ALT Alkaline Phosphatase Creatine Kinase 64 Troponin T Baseline NT-Pro-B Natriuret Pep 7411 H Total Protein Albumin Globulin Calcium (PTH Intact) 05/22/20 05/22/20 02:10 02:10 WBC RBC Hgb Hct MCV MCH MCHC RDW Plt Count MPV Neut % (Auto) Lymph % (Auto) Gilliam % (Auto) Eos % (Auto) Baso % (Auto) Neut # (Auto) Lymph # (Auto) Gilliam # (Auto) Eos # (Auto) Baso # (Auto) Nucleated RBC % (auto) Total Counted Atypical Lymphs % Absolute Neutrophils Segmented Neutrophils Abs Segm Neuts (Man) Band Neutrophils Abs Band Neuts (Man) Lymphocytes (Manual) Monocytes (Manual) Absolute Monocytes Eosinophils (Manual) Absolute Eosinophils Basophils (Manual) Absolute Basophils Metamyelocytes Myelocytes Nucleated RBCs # Platelet Estimate PT INR APTT Specimen Type Sample Site ABG pH ABG pCO2 ABG pO2 ABG HCO3 ABG O2 Saturation ABG Base Excess Micha Test A-a O2 Gradient Hematocrit Hgb O2 Saturation Carboxyhemoglobin Methemoglobin Total Hemoglobin Sodium 131 L Potassium 5.6 H Glucose 187 H Ionized Calcium O2 Delivery Device FiO2 Fish Flipper ID Chloride 92 L Carbon Dioxide 13 L Anion Gap 31.6 H BUN 167 H* Creatinine 16.6 H* GFR Calculation 2.9 L Calculated Osmolality 332 H Lactic Acid Calcium 8.6 Phosphorus Magnesium Total Bilirubin 0.6 AST 16 ALT 36 Alkaline Phosphatase 245 H Creatine Kinase Troponin T Baseline NT-Pro-B Natriuret Pep Total Protein 7.2 Albumin 3.3 L Globulin 3.9 Calcium (PTH Intact) 8.6 Cardiac Studies: No Data to Display
--- NOTE | 2020-05-22 09:08 | SC_ITS ---
WS: [id number] C-arm FL for CVA [id number] REASON FOR EXAM: SURGICAL PROCEDURE FINDINGS: Single AP view of the right hemithorax, intraprocedural, demonstrates proper position of dialysis ca theter from right internal jugular vein approach. Tip is at the atrial level. Complex radiopacity ove rlying the apex of the left lung is presumed sponge overlying the jugular insertion site. SC/C-arm FL for CVA [id number] IMPRESSION: Placement of right IJ dialysis catheter as above.
[2020-05-22 09:18] LABS: Estmated Average Glucose 94; Hemoglobin A1C 4.9 % (4.0-6.0)
[2020-05-22] MEDS: ceFAZolin 1,000 mg SDV 2000 MG IVP (09:20)
[2020-05-22 09:23] LABS: Parathyroid Hormone 171.7 pg/mL (15-65)
[2020-05-22] MEDS: heparin, porcine 1,000 unit/mL INJ 10 mL 10000 UNIT HE (09:50)
--- NOTE | 2020-05-22 09:57 | P.OP_ITS ---
Operative Report Date of procedure: May 22, 2020 Pre-op Diagnosis: Acute kidney injury/renal failure. Post-op diagnosis: same Procedure Done: Placement of 16 [place] 28 cm HemoSplit tunneled hemodialysis catheter into the right internal jugular vein with intraoperative ultrasound and fluoroscopy interpretation. Pathology: none sent Surgeon: Martin Mckeon Anesthesia: MAC Estimated blood loss (mL): 10 Complications: None. Condition: stable Disposition: PACU Procedure: The patient was brought to the operating room and was placed in a supine position on the operating room table. A monitored anesthetic was induced. The right side of the neck and chest were prepped and draped in a sterile fashion. Intraoperative ultrasound was used to find the right internal jugular vein as evidenced by its size and compressibility. 1% lidocaine was used for local anesthetic on the neck and the right internal jugular vein was accessed with a needle and syringe on the first pass as evidenced by the return of dark nonpulsatile blood. The guidewire was easily passed down the needle and the needle was removed. The C-arm was positioned and showed the guidewire extending down the vena cava. A 16 [place] HemoSplit long-term dialysis catheter was then placed on the right side of the chest and measured so that the subcutaneous cuff would be an appropriate location in the subcutaneous tunnel. A combination of 1% lidocaine and 0.5% bupivacaine with 1-200,000 parts epinephrine was used to anesthetize a subcutaneous tract from the right chest wall to the right side of the neck over the top of the clavicle. A small incision was made on the chest wall at the proposed exit point and a small incision was also made adjacent to the guidewire on the right side of the neck. The HemoSplit catheter was then tunneled from the small incision on the chest to the small incision on the right side of the neck using the passer provided in the kit. Small to medium sized dilators were then placed over the guidewire to dilate the skin opening and the subcutaneous tissue. The introducer and sheath were then passed over the guidewire easily into the right internal jugular vein. The guidewire and introducer were removed and the arms of the HemoSplit dialysis catheter were easily passed down the sheath which was then torn away. The C-arm was once again positioned and showed good placement of the dialysis catheter tip in the vena cava. Both ports were aspirated and flushed with hep flush solution. Both ports showed excellent flow and were then left filled with concentrated hep flush solution. The catheter was sewn in place at the skin on the chest with some sutures of 3-0 Prolene. The small incision on the right side of the neck was closed using some interrupted inverted sutures of 4-0 Vicryl. The incision on the neck was covered with some surgical glue. A sterile dressing was placed over the HemoSplit exit site on the chest. The patient was taken back to the recovery area postoperatively in stable condition. INTRAOPERATIVE FLUOROSCOPY FINDINGS: Intraoperative fluoroscopic images of a hemodialysis catheter placement were reviewed. An initial image reveals a guidewire entering the right internal jugular vein and extending down the vena cava. Subsequent images reveal a dialysis catheter on that side of the chest with its tubing tip in good location in the superior vena cava. No obvious pneumothorax is identified.
--- NOTE | 2020-05-22 10:02 | ANE.PACU2 ---
Inpatient post-anesthesia follow up: Airway intact: Yes Vital signs: Temperature 97.6 F Pulse Rate [Right Radial] 81 Pulse Rate 59 Respiratory Rate 18 Blood Pressure [Le ft Arm] 187/90 Blood Pressure 161/87 Pulse Oximetry 100 Oxygen Delivery Me thod Room Air Oxygen Flow Rate Fraction of Inspir ed Oxygen Hydration adequate: Yes Nausea and vomiting: No Pain level: 1 Mental status: Baseline
--- NOTE | 2020-05-22 10:03 | P.PCN_ITS ---
PACU note PACU note: VSS, Good respiratory effort, report to SHEET METAL OPERATOR Post-Anesthesia Exam: awake Disposition: back to floor
--- NOTE | 2020-05-22 10:03 | PM.PACU ---
PACU note PACU note: VSS, Good respiratory effort, report to RAILROAD FIRER/FIREMAN Post-Anesthesia Exam: awake Disposition: back to floor
[2020-05-22 10:19] LABS: Creatine Phosphokinase 62 U/L (39-308)
--- NOTE | 2020-05-22 10:45 | P.CONIM_ITS ---
Providers/Reason For Consult Consulting Physican/Specialty*: Nephrology Reason for Consult*: Renal Failure Attending Physician: David Cheek MD Primary Care Provider: Nery Peñaloza History of Present Illness History of Present Illness Mikey Godinez is a 64 year old male Who presents yesterday evening after progressively feeling unwell for 1 month. He had outpatient labs identified an elevated BUN and creatinine was subsequently sent to the hospital for evaluation. On arrival he was found to have an elevated serum creatinine of 15.1, and has actually trended up to 16.6 today. In addition to this he has an array of abnormal blood chemistry including a potassium of 5.6, carbon dioxide of 13, phosphorus of 10.3, total protein 7.2, albumin 3.3, PTH 171.7. Renal sono looks relatively unremarkable. He describes just not feeling so well over the last 1 month. His urine output was noticeably lower over the last 3 weeks, however was clear, nonbloody or cloudy. He has been eating and drinking normally, he gets the occasional twitch but does not have overt myoclonus, no altered mental status, no other uremic symptoms per se. No extremity edema, shortness of breath or other volume associated symptoms. His medical history is otherwise quite unremarkable. He has a history of gout which he has low dose prednisone prescribed. He specifically denies diabetes, hypertension, vascular disease in any form, lung disease. He does not take anti-inflammatory medications, proton pump inhibitors or other potentially nephrotoxic substances. Review of Systems Narrative: ROS - 12 point review of systems completed per HPI and subjective assessment, this includes Constitutional: Weakness, fatigue Respiratory: No SOB on exertion, comfortable at rest CardioVasc: No chest pain, palpitations Gastrointestinal: No nausea, no vomiting Neurological: No seizures, no AMS Derm: No new rashes, lesions or wounds Immunological: No seasonal and no food allergies Meds/Allergies Home Medications and Allergies Home Medications Medication Instructions Recorded Confirmed Last Taken Type ascorbic acid (vitamin C) [Vitamin 500 mg PO DAILY PRN 05/21/20 05/21/20 Unknown History C] cholecalciferol (vitamin D3) 2,000 unit PO DAILY PRN 05/21/20 05/21/20 Unknown History [Vitamin D3] cyanocobalamin (vitamin B-12) 100 mcg PO DAILY PRN 05/21/20 05/21/20 Unknown History [Vitamin B-12] prednisone See Rx Instructions .ROUTE .COMPLEX 05/21/20 05/21/20 05/21/20 15:00 History 4 tabs first dose sildenafil 25 - 50 mg PO PRN 05/21/20 05/21/20 Unknown History Allergies Allergy/AdvReac Type Severity Reaction Status Date / Time Penicillins AdvReac I just Verified 05/22/20 07:12 did not feel good Current Medications Current Medications Generic Name Dose Route Start Last Admin Trade Name Freq PRN Reason Stop Dose Admin Sodium Chloride 1,000 mls @ 125 mls/hr 05/21/20 20:49 05/22/20 04:26 Sodium Chloride 0.9% IV 0 mls/hr .Q8H QUEENIE Infusion Sodium Bicarbonate 1,300 mg 05/21/20 21:00 05/21/20 22:21 Sodium Bicarbonate 650 Mg Tablet PO 1,300 mg TID QUEENIE Administration PFSH Acute PFSH: Medical History Gout Surgical History H/O left inguinal hernia repair Laparoscopic extraperitoneal History of circumcision Normal colonoscopy 03/2007 Family History Brother Cancer Prostate Other Osteoarthritis Osteoporosis Denies family history of Anesthesia complication Bleeding disorder Social History Smoking and tobacco status: never smoked Alcohol intake: current Alcohol intake frequency: holidays/special occasions only Lives independently: Yes Household members: spouse Marital status: Current occupational status: employed Vitals/I&O/Wt Last Vital Signs Temp 97.0 F L 05/22/20 10:10 Pulse 62 05/22/20 10:10 Resp 14 05/22/20 10:10 BP 126/72 05/22/20 10:05 Pulse Ox 98 05/22/20 10:10 05/21/20 05/22/20 05/22/20 22:59 06:59 14:59 Intake Total 886.667 / 886.667 Balance 886.667 / 886.667 Weight last 48 hrs Weight 78.018 kg Weight 78.018 kg Weight 76.204 kg Physical Exam Narrative: EXAM NARRATIVE: Constitutional: Awake, conversant HEENT: Wet mucosa, no jvp, non icteric Lungs: Bilaterally clear without discernible wheeze or rales in all lung zones CVS: S1 S2, no murmurs Abdo: Soft, BS ok Ext 4: Minimal edema, peripheral perfusion with no cyanosis Neurological: Grossly non-focal A&P Additional A&P Information 1. Renal failure He has quite impressive renal failure with no obvious precipitating factor, relatively unremarkable renal ultrasound scan. The chronicity of his kidney damage is unknown, however, his symptoms suggest that it has developed over the last month or so. His creatinine did increase from yesterday to today, suggesting that this damage is of acute onset. I am worried that he has glomerulonephritis. With this in mind we should proceed with kidney biopsy early next week, and I will cover him with pulse dose steroids in the meantime until we have this result. Urinalysis with microscopy is pending as well as fractional excretion of sodium. We will send serum protein electrophoresis, ANCA, complement levels, LAYLA with reflex. Dialysis prescribed for today, low flow and short time, with second dialysis for tomorrow with increased intensity. This is to avoid disequilibrium syndrome. Avoid usual nephrotoxins Strict ins and outs Dose medications for GFR less than 15 on dialysis. 2. Electrolytes Significant anion gap metabolic acidosis secondary to renal failure. Sodium bicarbonate has been started, this will also correct with dialysis. Mild aberration of sodium and potassium, will also correct with dialysis. Hyperphosphatemia being treated with PhosLo. 3. Anemia of kidney disease Goal hemoglobin 10-12. Continue to monitor hemoglobin levels 4. Secondary hyperparathyroidism. Although we assume that there is an acute component to his kidney damage, his secondary hyperparathyroidism does suggest some degree of chronicity. Parathyroid levels are at goal for renal failure. 5. Hypertension. Amlodipine started. We will stop intravenous fluid. Gentle ultrafiltration with dialysis. Thank you for consultation. It is a pleasure for our team to follow these cases with you. Interview and examination was performed via telemedicine with the aid of the bedside nurse. Consult Attestations Medical Necessity Statement: eval for renal failure Coding Level of Care Code Acute Hotel Staff Member for [facility]
[2020-05-22 11:12] LABS: Erythrocyte Sedimentation Rate 107 mm/hr (0-10)
--- NOTE | 2020-05-22 11:31 | PM.PN ---
Subjective Subjective: Interval history: This morning patient was examined, he is seen postop after his dialysis catheter placement by Dr. Mckeon, he denies any history of renal disease, denies any family history of renal disease, A1c is 4.9, does have hypertension, but denies being overly hypertensive, tells me that for the last week he just has not been feeling well, he does not know exactly why, no fevers, chills, no known exposure to COVID-19, poor appetite, has not been drinking a lot of fluids, no falls, no injuries, is adamant about no drug use, denies accidentally drinking any windshield washer or antifreeze Vitals/I&O/Wt Last Vital Signs Temp 97.5 F L 05/22/20 11:15 Pulse 64 05/22/20 11:15 Resp 14 05/22/20 11:15 BP 132/82 05/22/20 11:15 Pulse Ox 98 05/22/20 11:15 05/21/20 05/22/20 05/22/20 22:59 06:59 14:59 Intake Total 886.667 / 886.667 Balance 886.667 / 886.667 Weight last 48 hrs Weight 78.018 kg Weight 78.018 kg Weight 76.204 kg Physical Exam Const: COMMON NORMALS: no acute distress and patient oriented x3 HENMT: COMMON NORMALS: normocephalic HEAD & SCALP: normocephalic Neck/C-Spine: COMMON NORMALS: no JVD Chest: OTHER: Right, tunneled hemodialysis catheter placed on the right internal jugular vein Resp: COMMON NORMALS: normal respiratory effort, No retractions, No use of accessory muscles and clear to auscultation bilaterally AUSCULTATION: clear to auscultation bilaterally Cardio: COMMON NORMALS: no JVD, regular rate, regular rhythm, S1 normal heart sound present and S2 normal heart sound present RATE: regular rate RHYTHM: regular rhythm HEART SOUNDS: S1 normal heart sound present and S2 normal heart sound present GI: COMMON NORMALS: Normal to inspection, nondistended, normoactive bowel sounds present, Soft to palpation, non-tender, No hepatosplenomegaly present, no masses and no bruits PALPATION: Yes Soft to palpation and Yes No hepatosplenomegaly present Extremity: COMMON NORMALS: capillary refill normal, no clubbing, cyanosis or edema, no calf tenderness and no pedal edema Neuro: COMMON NORMALS: patient oriented x3 Psych: COMMON NORMALS: mental status grossly normal Data : 05/22/20 02:10 05/22/20 02:10 A&P Assessment and plan (1) Acute kidney injury superimposed on chronic kidney disease: LOS on with unknown history of CKD I.V Hydration 125 cc hr Hemoglobin A1c 4.9, no significant hypotensive episodes Findings are concerning for nephritic versus nephrotic syndrome Will obtain urine studies, serum studies, Will require a kidney biopsy hopefully on Sunday, will speak to radiology Measure intake/ output Nephrology consult Avoid Nephrotoxic medications Status: Acute (2) Hyperkalemia: Came in with SCR of :6.3 EKG: SINUS RHYTHM.With Peaked T wave, Rate: 66, Qtc: 396 , [place]: 151 ,QRS: 47 Hyperkalemia Cocktail was given : 10 U Regular insulin, Dextorse Will get dialysis today Status: Acute (3) Gout: Currently on Prednisone 40 mg oral daily Status: Acute (4) Anemia: Likely anemia of Chronic kidney disease. 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 No need for transfusion. Status: Acute (5) Hyperphosphatemia: Calcium acetate 1334 mo po TID with meals Status: Acute (6) Metabolic acidosis: Inc Anion gap metabolic acidosis 2/2 to LOS ON CKD ABG : AB.29, PCO2: 25, PO2: 103 HCO3: 13 Sodium Bicarbonate 1300 mg PO TID Status: Acute Additional A&P Information DVT PPX: Heparin 5000 sc q12 Code Status : Full code Disposition : Home Attestations Medical Necessity Statement*: Plan for today, will get dialysis, urine studies, serum studies determine etiology of LOS nephritic versus nephrotic syndrome, renal diet Patient course hospitalization, inpatient, greater than 2 midnights, for acute renal failure, requiring hemodialysis, metabolic acidosis, hyperkalemia, hyperphosphatemia, hypermagnesemia Coding Level of Care Code Acute System Operator for [facility] Fwd Diagnoses Acute kidney injury superimposed on chronic kidney disease N17.9; N18.9 Hyperkalemia E87.5 Gout M10.9 Anemia D64.9 Hyperphosphatemia E83.39 Metabolic acidosis E87.2
[2020-05-22] MEDS: calcium acetate 667 mg Capsule 1334 MG PO ×2 (12:22→19:24)
[2020-05-22 14:55] LABS: Complement C3 167 mg/dL (90-180)
[2020-05-22 15:12] LABS: Hepatitis B Surface Antigen Non-Reactive (Nonreactive)
[2020-05-22 15:14] LABS: Bilirubin Urine Neg (Negative); Blood Urine 3+ (Negative); Glucose Urine UA Trace (Normal); Ketones Urine Negative (Negative); Leukocyte Esterase Urine Negative (Negative); Nitrate Urine Negative (Negative); Protein Urine 3+ (Negative); Urine Appearance SL Hazy (CLEAR); Urine Color Straw (Yellow); Urobilinogen Urine Norm (Negative); pH Urine 5 (5-7)
[2020-05-22 15:16] LABS: Add Urine Culture? No; Amorphous Sediment Urine 1+ /hpf; Bacteria Urine TRACE /hpf
[2020-05-22] MEDS: sodium bicarbonate 650 mg Tablet 1300 MG PO ×2 (16:23→20:49)
--- NOTE | 2020-05-22 19:26 | PC.NURSE ---
Received report from ARTEMIO Bello. Patient resting in bed watching TV. Denies pain or other discomfort states I don't feel better but I don't feel worse. Medication administered as ordered. Assessment completed as documented. Tunnel Catheter for Dialysis dresssing remains c,d,i. No s/s of bleeding or hematoma formation observed.
[2020-05-23] VITALS (11 sets, daily range): BP systolic 127–186; BP diastolic 81–101; PULSE 57–63; RESP 10–20; TEMP 36.4–36.7; O2SAT 94–98
--- NOTE | 2020-05-23 00:56 | PC.NURSE ---
Patient has current BP of 186/91. Patient denies any discomforts related to blood pressure. Informed Dr Osorio. Dr flor new order.
[2020-05-23] MEDS: cloNIDine 0.1 mg Tablet PO ×3 (01:09→18:23)
[2020-05-23 04:49] LABS: Basophils % 0.2 %; Eosinophils % 0.1 %; Hematocrit 27.5 % (42.0-52.0); Hemoglobin 9.2 g/dL (11.7-16.6); Lymphocytes # 0.5 10^3/uL (0.8-4.8); Mean Corpuscular HGB Conc 33.5 g/dL (30.0-36.0); Mean Corpuscular Hemoglobin 27.7 pg (28.0-34.0); Mean Corpuscular Volume 82.8 fL (80-94); Mean Platelet Volume 9.4 fL (7.4-10.4); Monocytes # 0.2 10^3/uL (0.2-0.9); Monocytes % 1.7 %; Neutrophils # 8.06 10^3/uL (1.8-7.7); Nucleated Red Blood Cells % 0 %; Platelet Count 386 10^3/cmm (130-400); Red Blood Count 3.32 10^6/uL (4.1-5.3); Red Cell Distribution Width 13.7 % (12.1-15.1)
[2020-05-23 05:14] LABS: Alanine Aminotransferase 25 U/L (0-41); Albumin Level 2.9 g/dL (3.5-5.2); Alkaline Phosphatase 203 IU/L (40-130); Anion Gap 23.5 (5-19); Aspartate Amino Transferase 16 U/L (0-40); Calcium 8.4 mg/dL (8.5-10.5); Carbon Dioxide 19 mmol/L (22-29); Chloride 97 mmol/L (98-107); Globulin 3.7 g/dL (1.3-4.6); Glomerular Filtration Rate 3.6 mL/min (90-130); Glucose 154 mg/dL (65-115); Potassium 5.5 mmol/L (3.5-5.1); Sodium 134 mmol/L (136-145); Total Bilirubin 0.4 mg/dL (0.15-1.2); Total Protein 6.6 g/dL (6.6-8.7)
[2020-05-23 05:24] LABS: Magnesium 2.6 mg/dL (1.7-2.3)
[2020-05-23 06:13] LABS: Blood Urea Nitrogen 136 mg/dL (8-23); Osmolality Calculated 325 mOsm/kg (285-295)
[2020-05-23 06:14] LABS: Phosphorus 8.2 mg/dL (2.5-4.5)
[2020-05-23] MEDS: calcium acetate 667 mg Capsule 1334 MG PO ×3 (07:41→18:24)
--- NOTE | 2020-05-23 08:50 | PC.NURSE ---
Off unit to Dialysis room [address] via wheelchair.
[2020-05-23 09:47] LABS: PROTEIN, TOTAL 6.5 g/dL (6.1-8.1)
--- NOTE | 2020-05-23 09:59 | PC.NURSE ---
Pt stated he has been having watery stools since he came in the hospital He is thinking he has not eaten enough due to poor appetite. He thinks his last good formed BM was last week. Pt still reports of not producing urine. Abdomen is firm and distended. Denies any pain to the area. notified in person.
[2020-05-23] MEDS: cholecalciferol (vitamin D3) 1,000 unit Tablet 2000 UNIT PO (11:28)
[2020-05-23] MEDS: polyethylene glycol 3350 Pkt 17 gm PO (11:29)
[2020-05-23] MEDS: docusate sodium 100 mg Capsule PO ×2 (11:29→18:24)
[2020-05-23] MEDS: sodium bicarbonate 650 mg Tablet 1300 MG PO ×3 (11:29→20:59)
--- NOTE | 2020-05-23 11:30 | PC.CHAP ---
Pastoral Care Encounter/Spiritual Assessment Type of Contact [] Declined retail commission sales associate visit [] Patient/Family/Request visit [] Outpatient visit [] Follow-up visit [] Physician referral [] Code/Alert [X] Routine visit [] Staff referral [] Actively dying [] Patient sleeping [] Family support [] [X] Out of room [] Palliative care [] [] Receiving care in room [] Pre-surgical visit [] Trauma [] Long length of stay [] ICU visit [] Other: Relational/Emotional Strength [] Patient feels connected with others/family/visitors/staff [] Distress [] Loneliness/isolation [] Abandonment Spirituality of Patient [] Person of Yovana [] Attends Anabaptist of their Yovana [] Believes in Prayer [] Reads Bible or Scientologist materials [] There are Spiritual issues to be addressed Rouge Mixer Interventions [] Prayer [] Active listening [] Non-anxious presence [] Spiritual/emotional support [] Crisis/trauma care [] Spiritual counseling [] Bereavement support [] Provided bereavement packet [] Provided Bible/devotional materials [] Provided toy/stuffed animal, coloring book to patient or family member [] Provided Communion [] Anointing/[place] [] Salvation [] Completed spiritual assessment [] Other: Impact on Illness or Injury [] Angry [] Fearful [] Anxious [] Often cries [] Exhaustion [] Unable to work [] Unable to attend uatsdin [] Unable to walk/stand [] Unable to read [] Unable to drive [] Unable to eat/drink [] Unable to sleep [] Unable to be with family [] Patient intubated [] Other: Summary Time spent with patient
--- NOTE | 2020-05-23 11:39 | P.PN_ITS ---
Subjective Subjective: Interval history: Seen on dialysis today. Feels ok, still weak and slightly orthostatic Tunneled line place UO 236mL only Dialysis is going well tolerating it hemodynamically No other new overt uremic Sx Vitals/I&O/Wt Last Vital Signs Temp 97.6 F 05/23/20 07:45 Pulse 57 L 05/23/20 07:45 Resp 17 05/23/20 07:45 BP 169/81 05/23/20 11:29 Pulse Ox 98 05/23/20 07:45 05/22/20 05/23/20 05/23/20 22:59 06:59 14:59 Intake Total 100 / 100 Output Total 236 / 236 Balance -236 / 140 100 / 100 Weight last 48 hrs Weight 79.968 kg Weight 78.018 kg Weight 78.018 kg Weight 76.204 kg Physical Exam Narrative: EXAM NARRATIVE: Constitutional: Awake, conversant HEENT: Wet mucosa, no jvp, non icteric Lungs: Bilaterally clear without discernible wheeze or rales in all lung zones CVS: S1 S2, no murmurs Abdo: Soft, BS ok Ext 4: Minimal edema, peripheral perfusion with no cyanosis Neurological: Grossly non-focal Data : 05/23/20 04:15 05/23/20 04:15 Micro: Microbiology 05/22/20 14:00 Urine Culture - Preliminary Urine,Voided A&P Additional A&P Information 1. Renal failure He has quite impressive renal failure with no obvious precipitating factor Urine with blood and protein concerning for acute glomerulonephritis Complements normal ANCA, LAYLA, SPEP pending Renal biopsy tomorrow Dialysis session 2 today, will dialyze again tomorrow with increasing dialysis intensity Avoid usual nephrotoxins Strict ins and outs Dose medications for GFR less than 15 on dialysis. 2. Electrolytes Significant anion gap metabolic acidosis secondary to renal failure. Sodium bicarbonate has been started, this will also correct with dialysis. Mild aberration of sodium and potassium, will also correct with dialysis. Hyperphosphatemia being treated with PhosLo. 3. Anemia of kidney disease Goal hemoglobin 10-12. Continue to monitor hemoglobin levels 4. Secondary hyperparathyroidism. Although we assume that there is an acute component to his kidney damage, his secondary hyperparathyroidism does suggest some degree of chronicity. Parathyroid levels are at goal for renal failure. 5. Hypertension. Amlodipine started and hydralazine added. UF with HD Thank you for consultation. It is a pleasure for our team to follow these cases with you. Interview and examination was performed via telemedicine with the aid of the bedside nurse. 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
--- NOTE | 2020-05-23 11:42 | P.PN_ITS ---
Subjective Subjective: Interval history: This morning patient was seen in the dialysis suite, he has no particular complaints, no fevers, chills, no nausea, no vomiting Vitals/I&O/Wt Last Vital Signs Temp 97.6 F 05/23/20 07:45 Pulse 57 L 05/23/20 07:45 Resp 17 05/23/20 07:45 BP 169/81 05/23/20 11:29 Pulse Ox 98 05/23/20 07:45 05/22/20 05/23/20 05/23/20 22:59 06:59 14:59 Intake Total 100 / 100 Output Total 236 / 236 Balance -236 / 140 100 / 100 Weight last 48 hrs Weight 79.968 kg Weight 78.018 kg Weight 78.018 kg Weight 76.204 kg Physical Exam Const: COMMON NORMALS: no acute distress and patient oriented x3 HENMT: COMMON NORMALS: normocephalic HEAD & SCALP: normocephalic Neck/C-Spine: COMMON NORMALS: no JVD Chest: OTHER: Right, tunneled hemodialysis catheter placed on the right internal jugular vein Resp: COMMON NORMALS: normal respiratory effort, No retractions, No use of accessory muscles and clear to auscultation bilaterally AUSCULTATION: clear to auscultation bilaterally Cardio: COMMON NORMALS: no JVD, regular rate, regular rhythm, S1 normal heart sound present and S2 normal heart sound present RATE: regular rate RHYTHM: regular rhythm HEART SOUNDS: S1 normal heart sound present and S2 normal heart sound present GI: COMMON NORMALS: Normal to inspection, nondistended, normoactive bowel sounds present, Soft to palpation, non-tender, no masses and no bruits INSPECTION: Yes abdominal distension PALPATION: Yes Soft to palpation Extremity: COMMON NORMALS: capillary refill normal, no clubbing, cyanosis or e trav, no calf tenderness and no pedal edema Neuro: COMMON NORMALS: patient oriented x3 Psych: COMMON NORMALS: mental status grossly normal Data : 05/23/20 04:15 05/23/20 04:15 Micro: Microbiology 05/22/20 14:00 Urine Culture - Preliminary Urine,Voided A&P Assessment and plan (1) Acute kidney injury superimposed on chronic kidney disease: LOS on with unknown history of CKD Stop IV hydration Hemoglobin A1c 4.9, no significant hypotensive episodes Findings are concerning for nephritic versus nephrotic syndrome Awaiting on urine, serum studies Will require a kidney biopsy hopefully on Sunday, will speak to radiology Measure intake/ output Nephrology consult Avoid Nephrotoxic medications Status: Acute (2) Hyperkalemia: Came in with SCR of :6.3 EKG: SINUS RHYTHM.With Peaked T wave, Rate: 66, Qtc: 396 , [place]: 151 ,QRS: 47 Hyperkalemia Cocktail was given : 10 U Regular insulin, Dextorse Potassium 5.5 today, getting dialysis today Status: Acute (3) Gout: Currently on Prednisone 40 mg oral daily Status: Acute (4) Anemia: Likely anemia of Chronic kidney disease. Monitor CBC for now. No need for transfusion. Status: Acute (5) Hyperphosphatemia: Calcium acetate 1334 mo po TID with meals Status: Acute (6) Metabolic acidosis: Inc Anion gap metabolic acidosis 2/2 to LOS ON CKD ABG : AB.29, PCO2: 25, PO2: 103 HCO3: 13 Sodium Bicarbonate 1300 mg PO TID Status: Acute Additional A&P Information DVT PPX: Heparin 5000 sc q12 Code Status : Full code Disposition : Home Attestations Medical Necessity Statement*: Patient requires hospitalization for acute kidney failure, requiring dialysis, will require a renal biopsy Coding Level of Care Code Acute Magnetic Locater for [facility] Fwd Diagnoses Acute kidney injury superimposed on chronic kidney disease N17.9; N18.9 Hyperkalemia E87.5 Gout M10.9 Anemia D64.9 Hyperphosphatemia E83.39 Metabolic acidosis E87.2
--- NOTE | 2020-05-23 11:53 | XRR_ITS ---
PROCEDURE INFORMATION: Exam: XR Abdomen, 1 View Exam date and time: 05/23/2020 11:54 AM Age: 64 years old Clinical indication: Abdominal pain; Generalized; Additional info: Abdominal distention TECHNIQUE: Imaging protocol: XR of the abdomen. Views: Frontal supine view of the abdomen. 1 View. COMPARISON: No relevant prior studies available. FINDINGS: Gastrointestinal tract: Normal. No bowel dilation. No ileus or obstruction. There is abundant colonic stool specially in the right colon. No impaction. No nephrolithiasis. Probable phleboliths are noted in the pelvis. Bones/joints: Unremarkable. XR/XR KUB portable [id number] IMPRESSION: No acute findings.
[2020-05-24] VITALS (13 sets, daily range): BP systolic 114–148; BP diastolic 64–91; PULSE 45–72; RESP 10–17; TEMP 36.1–36.8; O2SAT 92–98
[2020-05-24 05:53] LABS: Basophils % 0.1 %; Lymphocytes # 0.6 10^3/uL (0.8-4.8); Lymphocytes % 5.6 %; Mean Corpuscular HGB Conc 33.3 g/dL (30.0-36.0); Mean Corpuscular Hemoglobin 27.9 pg (28.0-34.0); Mean Corpuscular Volume 83.6 fL (80-94); Mean Platelet Volume 9.4 fL (7.4-10.4); Monocytes # 0.4 10^3/uL (0.2-0.9); Monocytes % 3.4 %; Neutrophils # 9.81 10^3/uL (1.8-7.7); Neutrophils % 87.9 %; Nucleated Red Blood Cells % 0 %; Platelet Count 378 10^3/cmm (130-400); Red Blood Count 3.59 10^6/uL (4.1-5.3); Red Cell Distribution Width 13.7 % (12.1-15.1); White Blood Count 11.2 10^3/uL (4.0-10.0)
[2020-05-24 06:17] LABS: Alanine Aminotransferase 19 U/L (0-41); Albumin Level 2.8 g/dL (3.5-5.2); Alkaline Phosphatase 187 IU/L (40-130); Aspartate Amino Transferase 18 U/L (0-40); Calcium 8.5 mg/dL (8.5-10.5); Carbon Dioxide 25 mmol/L (22-29); Chloride 98 mmol/L (98-107); Globulin 3.7 g/dL (1.3-4.6); Glomerular Filtration Rate 4.6 mL/min (90-130); Glucose 151 mg/dL (65-115); Osmolality Calculated 323 mOsm/kg (285-295); Sodium 140 mmol/L (136-145); Total Bilirubin 0.4 mg/dL (0.15-1.2); Total Protein 6.5 g/dL (6.6-8.7)
--- NOTE | 2020-05-24 06:39 | PC.NURSE ---
CRITICAL LAB VALUE; BUN OF 96 AND CREAT OF 11.2 REPORTED TO JAMES ULLOA AT THIS TIME. RN STATED THIS WAS TRENDING DOWN AND IS NOT CONTACTING PHYSICIAN AT THIS TIME.
[2020-05-24 06:51] LABS: Blood Urea Nitrogen 96 mg/dL (8-23)
[2020-05-24 06:59] LABS: Magnesium 2.5 mg/dL (1.7-2.3)
[2020-05-24 07:13] LABS: Phosphorus 8.5 mg/dL (2.5-4.5)
--- NOTE | 2020-05-24 07:26 | PC.NURSE ---
Patient continue to have improved lab values regarding BUN and Creatinine this am they are at 96 and 11 respectively. Dialysis to continue per provider orders. Patient has been NPO since midnight due to possible kidney biopsy today with dialysis to follow completion of procedure. Patient laid in bed with eyes closed all night. No s/s of distress at this time. Will continue with CPOC
[2020-05-24] MEDS: calcium acetate 667 mg Capsule 1334 MG PO ×3 (07:28→17:15)
[2020-05-24] MEDS: cloNIDine 0.1 mg Tablet PO ×2 (08:24→17:16)
[2020-05-24] MEDS: docusate sodium 100 mg Capsule PO ×2 (08:25→17:15)
[2020-05-24] MEDS: sodium bicarbonate 650 mg Tablet 1300 MG PO ×3 (08:25→20:51)
[2020-05-24] MEDS: amlodipine 10 mg Tablet PO (08:25)
[2020-05-24] MEDS: cholecalciferol (vitamin D3) 1,000 unit Tablet 2000 UNIT PO (08:25)
[2020-05-24] MEDS: polyethylene glycol 3350 Pkt 17 gm PO (08:27)
--- NOTE | 2020-05-24 09:17 | DCPLANNER ---
IMM completed 05/24/2020 @ 0915. Copy of rights given to pt.
--- NOTE | 2020-05-24 11:43 | P.PN_ITS ---
Subjective Subjective: Interval history: Feels ok today, still weak, tired. No overt uremic. No edema and no other volume assoc Sx. Making small amounts of urine Dialyzed yesterday Hemodynamics reviewed, stable Vitals/I&O/Wt Last Vital Signs Temp 96.9 F L 05/24/20 10:56 Pulse 45 L 05/24/20 10:56 Resp 14 05/24/20 10:56 BP 114/78 05/24/20 10:56 Pulse Ox 97 05/24/20 10:56 05/23/20 05/24/20 05/24/20 22:59 06:59 14:59 Intake Total 200 / 676 Output Total 100 / 100 Balance 100 / 576 Weight last 48 hrs Weight 80.286 kg Weight 79.968 kg Physical Exam Narrative: EXAM NARRATIVE: Constitutional: Awake, conversant HEENT: Wet mucosa, no jvp, non icteric Lungs: Bilaterally clear without discernible wheeze or rales in all lung zones CVS: S1 S2, no murmurs Abdo: Soft, BS ok Ext 4: Minimal edema, peripheral perfusion with no cyanosis Neurological: Grossly non-focal Data : 05/24/20 05:21 05/24/20 05:21 Micro: Microbiology 05/22/20 14:00 Urine Culture - Final Urine,Voided A&P Additional A&P Information 1. Renal failure He has quite impressive renal failure with no obvious precipitating factor Urine with blood and protein concerning for acute glomerulonephritis Complements normal ANCA, LAYLA, SPEP pending Renal biopsy to be performed at [facility] if they accept him for transfer Dialysis session 2 Sunday, plan dialysis today or tomorrow depending on staff avaialbility Empirical Solumedrol 1g day 3, switch to oral prednisone tomorrow Avoid usual nephrotoxins Strict ins and outs Dose medications for GFR less than 15 on dialysis. 2. Electrolytes Well balanced Hyperphosphatemia being treated with PhosLo. 3. Anemia of kidney disease Goal hemoglobin 10-12. Continue to monitor hemoglobin levels 4. Secondary hyperparathyroidism. Although we assume that there is an acute component to his kidney damage, his secondary hyperparathyroidism does suggest some degree of chronicity. Parathyroid levels are at goal for renal failure. 5. Hypertension. Amlodipine started and hydralazine added. UF with HD Thank you for consultation. It is a pleasure for our team to follow these cases with you. Interview and examination was performed via telemedicine with the aid of the bedside nurse. Attestations Medical Necessity Statement*: eval for renal failure Coding Level of Care Code Acute Funeral Home Manager for [facility] Vasyl
[2020-05-24 12:48] LABS: ALBUMIN 2.6 g/dL (3.8-4.8); ALPHA 1 GLOBULIN 0.7 g/dL (0.2-0.3); ALPHA 2 GLOBULIN 1.1 g/dL (0.5-0.9); BETA 1 GLOBULIN 0.3 g/dL (0.4-0.6); BETA 2 GLOBULIN 0.4 g/dL (0.2-0.5); COMPLEMENT, TOTAL (CH50) >60 U/mL (31-60); GAMMA GLOBULIN 1.4 g/dL (0.8-1.7)
[2020-05-24 13:18] LABS: COMPLEMENT COMPONENT C3C 188 mg/dL (82-185); COMPLEMENT COMPONENT C4C 41 mg/dL (15-53)
--- NOTE | 2020-05-24 13:51 | PM.PN ---
Subjective Subjective: Interval history: No new complaints today. Assessed by renal this morning, dialysis next session is tomorrow. Patient was originally planned to undergo CT biopsy, however after discussion with radiology, it is felt that patient may need to be at a higher center where IR is available for intervention in case of any bleeding during kidney biopsy. We will try for transfer. No new complaints otherwise, reports feeling some degree of shortness of breath on ambulation Medications: Reviewed: Yes Vitals/I&O/Wt Last Vital Signs Temp 96.9 F L 05/24/20 10:56 Pulse 45 L 05/24/20 10:56 Resp 14 05/24/20 10:56 BP 114/78 05/24/20 10:56 Pulse Ox 97 05/24/20 10:56 05/23/20 05/24/20 05/24/20 22:59 06:59 14:59 Intake Total 200 / 676 240 / 240 Output Total 100 / 100 Balance 100 / 576 240 / 240 Weight last 48 hrs Weight 80.286 kg Weight 79.968 kg Physical Exam Narrative: EXAM NARRATIVE: GEN: Awake, alert and oriented, no acute distress CVS: S1S2 N RS: CTA B/L Abd: Soft, nt/nd , bs+ PSS DELIVERY PROFESSIONAL: no focal neuro deficits Data : 05/24/20 05:21 05/24/20 05:21 Micro: Microbiology 05/22/20 14:00 Urine Culture - Final Urine,Voided A&P Assessment and plan (1) Acute kidney injury superimposed on chronic kidney disease: LOS on with unknown history of CKD Hemoglobin A1c 4.9, no significant hypotensive episodes Findings are concerning for nephritic versus nephrotic syndrome of unclear etiology Ideally patient should get a kidney biopsy on this current admission,, after discussion with radiology this morning, this is better felt to be performed at a center where interventional radiology is available. Discussed this with the patient and will reach out to hospital in [facility]. Discussed with nephrology that kidney biopsy performed sooner rather than as outpatient would be more beneficial for the patient as he would need directed therapy in case of underlying vasculitis etc. Measure intake/ output Appreciate nephrology consult Avoid Nephrotoxic medications Status: Acute (2) Hyperkalemia: This is currently resolved Status: Acute (3) Gout: Currently on pulse dose steroids with Solu-Medrol 1000 mg every 24 Status: Acute (4) Anemia: Likely anemia of Chronic kidney disease. Monitor CBC for now. No need for transfusion. Status: Acute (5) Hyperphosphatemia: Calcium acetate 1334 mo po TID with meals Status: Acute (6) Metabolic acidosis: Inc Anion gap metabolic acidosis 2/2 to LOS ON CKD Sodium Bicarbonate 1300 mg PO TID Status: Acute Additional A&P Information DVT PPX: Heparin 5000 sc q12 Code Status : Full code Disposition : Home Attestations Medical Necessity Statement*: Patient needs continued inpatient admission for evaluation and management of LOS on CKD, ongoing HD, plan for transfer to center with availability of IR for kidney biopsy. 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
[2020-05-24 14:48] LABS: THYROID PEROXIDASE ANTIBODIES 4 IU/mL (<9)
--- NOTE | 2020-05-24 23:10 | PC.NURSE ---
Low HR 37 Pt denies pain at this time. Over the shift while pt slept his heart rate would drop to 37-39. He is easily aroused both by touch and verbally. No apparent s/s of distress. Will continue to monitor
--- NOTE | 2020-05-24 23:41 | PC.NURSE ---
pt concerns pt expressed concerns in regard to his kidney treatment and upcoming biopsy. He is concerned about the movement between hospitals, possible exposure to covid when moved, and what to expect from a biopsy. Pt reassured that we are finding him a safe alternative for care.
[2020-05-25] VITALS (7 sets, daily range): BP systolic 119–152; BP diastolic 66–89; PULSE 49–61; RESP 13–59; TEMP 36.6; O2SAT 95–100; BMI 28.3
--- NOTE | 2020-05-25 01:17 | PC.NURSE ---
low HR/Resting Patient has had a low HR all evening.It is still between 39-42 BPM. Pt is easily aroused verbally/light touch. No other s/s noted at this time.
[2020-05-25 04:08] LABS: Basophils % 0.2 %; Hematocrit 28.1 % (42.0-52.0); Hemoglobin 9.2 g/dL (11.7-16.6); Lymphocytes # 0.8 10^3/uL (0.8-4.8); Lymphocytes % 5.8 %; Mean Corpuscular HGB Conc 32.7 g/dL (30.0-36.0); Mean Corpuscular Hemoglobin 27.1 pg (28.0-34.0); Mean Corpuscular Volume 82.9 fL (80-94); Mean Platelet Volume 9.3 fL (7.4-10.4); Monocytes # 0.5 10^3/uL (0.2-0.9); Monocytes % 3.7 %; Neutrophils # 11.26 10^3/uL (1.8-7.7); Neutrophils % 86.2 %; Nucleated Red Blood Cells % 0 %; Platelet Count 357 10^3/cmm (130-400); Red Blood Count 3.39 10^6/uL (4.1-5.3); Red Cell Distribution Width 13.5 % (12.1-15.1); White Blood Count 13.1 10^3/uL (4.0-10.0)
[2020-05-25 04:37] LABS: Alanine Aminotransferase 20 U/L (0-41); Albumin Level 2.7 g/dL (3.5-5.2); Alkaline Phosphatase 164 IU/L (40-130); Anion Gap 25.5 (5-19); Aspartate Amino Transferase 21 U/L (0-40); Calcium 8.6 mg/dL (8.5-10.5); Carbon Dioxide 22 mmol/L (22-29); Chloride 98 mmol/L (98-107); Globulin 3.3 g/dL (1.3-4.6); Glomerular Filtration Rate 4.1 mL/min (90-130); Glucose 141 mg/dL (65-115); Magnesium 2.5 mg/dL (1.7-2.3); Potassium 5.5 mmol/L (3.5-5.1); Sodium 140 mmol/L (136-145); Total Bilirubin 0.3 mg/dL (0.15-1.2)
--- NOTE | 2020-05-25 04:39 | PC.NURSE ---
Pts has concersns-Kidney Bx info Pt is tearful and scared about upcoming kidney bx. Pt received printout from [facility] regarding expectations. He is concerned about his kasi COVID and is missing her. Pt informed of visiting hours and precautions taken by hospital staff. He needed reassurance that he was going to be ok. I explained his lab results and procedures. He has questions about what he is going to face.
[2020-05-25 04:51] LABS: Blood Urea Nitrogen 136 mg/dL (8-23); Osmolality Calculated 336 mOsm/kg (285-295); Phosphorus 9.9 mg/dL (2.5-4.5)
[2020-05-25] MEDS: calcium acetate 667 mg Capsule 1334 MG PO (08:08)
[2020-05-25] MEDS: amlodipine 10 mg Tablet PO (09:22)
[2020-05-25] MEDS: sodium bicarbonate 650 mg Tablet 1300 MG PO ×2 (09:22→15:39)
[2020-05-25] MEDS: cholecalciferol (vitamin D3) 1,000 unit Tablet 2000 UNIT PO (09:22)
[2020-05-25] MEDS: cloNIDine 0.1 mg Tablet PO (09:23)
[2020-05-25] MEDS: docusate sodium 100 mg Capsule PO (09:23)
[2020-05-25 10:20] LABS: SARS Covid-2 Antigen Negative (Negative)
--- NOTE | 2020-05-25 11:15 | PC.NURSE ---
Patient to dialysis at this time. A&O, VSS.
--- NOTE | 2020-05-25 12:32 | P.PN_ITS ---
Subjective Subjective: Interval history: Remains weak and tired, but no other acute new problems with him. No overt uremic symptoms. No extremity edema, shortness of breath or other volume associated symptoms. Medications: Reviewed: Yes Vitals/I&O/Wt Last Vital Signs Temp 97.8 F 05/25/20 08:00 Pulse 59 L 05/25/20 08:00 Resp 16 05/25/20 08:00 BP 119/66 05/25/20 09:23 Pulse Ox 100 05/25/20 08:00 05/24/20 05/25/20 05/25/20 22:59 06:59 14:59 Intake Total 140 / 638 30 / 668 Output Total 100 / 100 150 / 250 Balance 40 / 538 -120 / 418 Weight last 48 hrs Weight 82.146 kg Weight 80.286 kg Physical Exam Narrative: EXAM NARRATIVE: Constitutional: Awake, conversant HEENT: Wet mucosa, no jvp, non icteric Lungs: Bilaterally clear without discernible wheeze or rales in all lung zones CVS: S1 S2, no murmurs Abdo: Soft, BS ok Ext 4: Minimal edema, peripheral perfusion with no cyanosis Neurological: Grossly non-focal Data : 05/25/20 03:15 05/25/20 03:15 Micro: Microbiology 05/22/20 14:00 Urine Culture - Final Urine,Voided A&P Additional A&P Information 1. Renal failure He has quite impressive renal failure with no obvious precipitating factor Urine with blood and protein concerning for acute glomerulonephritis Complements normal ANCA, LAYLA pending SPEP neg Renal biopsy to be performed at OSH Dialysis session 3 today Empirical Solumedrol 1g daily x 3 days now switched to Pred 80mg daily Avoid usual nephrotoxins Strict ins and outs Dose medications for GFR less than 15 on dialysis. 2. Electrolytes Well balanced Hyperphosphatemia being treated with PhosLo. 3. Anemia of kidney disease Goal hemoglobin 10-12. Continue to monitor hemoglobin levels 4. Secondary hyperparathyroidism. Although we assume that there is an acute component to his kidney damage, his secondary hyperparathyroidism does suggest some degree of chronicity. Parathyroid levels are at goal for renal failure. 5. Hypertension. Amlodipine started and hydralazine added. UF with HD Thank you for consultation. It is a pleasure for our team to follow these cases with you. Interview and examination was performed via telemedicine with the aid of the bedside nurse. 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
--- NOTE | 2020-05-25 12:46 | P.TS_ITS ---
Transfer Summary Providers Date of Admission: 05/21/20 20:07 Date of Discharge: 05/25/20 Attending Provider at Admission: Myron Osorio MD Attending Provider at Transfer: Kati Riggs MD Primary Care Provider: Nery Peñaloza Anticipated Date of Transfer: Anticipated date of transfer: 05/25/20 Receiving Facility & Provider: Receiving Provider: [Dr. Ty Alvarez] Receiving facility: [facility]] Diagnoses at Discharge Discharge Diagnosis (1) Acute kidney injury superimposed on chronic kidney disease: Status: Acute (2) Hyperkalemia: Status: Acute (3) Gout: Status: Acute (4) Anemia: Status: Acute (5) Hyperphosphatemia: Status: Acute (6) Metabolic acidosis: Status: Acute Reason for Visit Reason for Visit: KIDNEY FAILURE Hospital Course Hospital Course Mikey Godinez is a 64 year old male who presented on 05/22 after progressively feeling unwell for 1 month. He had outpatient labs identified an elevated BUN and creatinine was subsequently sent to the hospital for evaluation. On arrival he was found to have an elevated serum creatinine of 15.1, potassium of 5.6, carbon dioxide of 13, phosphorus of 10.3, total protein 7.2, albumin 3.3, PTH 171.7. Renal ultrasound without evidence of obstruction. Tunneled HD catheter was placed on 05/22 and patient started on HD, thus far receiving treatment on 05/23 and 05/25. W/up has thus far included Urine with blood and protein concerning for acute glomerulonephritis, serum complements normal, ANCA, LAYLA, SPEP pending. Hba1c 4.9. Hepatitis screen pending. HIV screen pending. Covid rapid antigen negative on 05 25. Patient had also complained about acute left ankle swelling over the same timeframe, was outpatient being treated as presumed gout, due to concern for possible vasculitis/connective tissue disorder, for which early renal biopsy has been recommended by tele nephrology. He is currently on empiric Solu-Medrol 1 g to complete 3 days, switch to p.o. prednisone today. no past known h/o HTN, however upon presentation SBP 170-180s. Currently we do not have the capability to perform a kidney biopsy safely and this would be better achieved at a center with specialty IR/in person nephrology services. Patient is being transferred to [facility] for the same. Physical Exam Narrative: EXAM NARRATIVE: GEN: Awake, alert and oriented, no acute distress CVS: S1S2 N RS: CTA B/L Abd: Soft, nt/nd , bs+ MANAGER HARDWARE: no focal neuro deficits TS Data Data Completed and Pending: Completed Studies During Hospitalization Category Date Time Status XR KUB portable 7 [id number] Routine Exams 05/23/20 11:53 Completed XR chest 1V tana ble [id number] Stat Exams 05/21/20 16:35 Completed US renal BI* [id number] Stat Ultrasound 05/21/20 17:27 Completed Pending at discharge Category Date Time Status LAYLA Profile Rheum atology Stat Lab 05/22/20 14:13 Results Creatinine Urine, Random Routine Lab 05/21/20 20:46 Uncollected Hepatitis Panel C omprehensive Routi ne Lab 05/25/20 03:15 Received Myoglobin Qualita tive Urine Routine Lab 05/22/20 08:44 Uncollected Urine Creatinine Routine Lab 05/22/20 08:44 Uncollected Urine Eosinophils Routine Lab 05/22/20 08:44 Uncollected Urine Protein Josselin ctrop Random Stat Lab 05/22/20 08:44 Uncollected Urine Protein Ran dom Routine Lab 05/21/20 20:46 Uncollected Urine Protein Ran dom Routine Lab 05/22/20 08:44 Uncollected Urine Random Lyte s Routine Lab 05/22/20 08:44 Uncollected Urine Random Sodi um Routine Lab 05/21/20 20:46 Uncollected Urine Random Sodi um Routine Lab 05/22/20 08:44 Uncollected Labs from last 24 hours 05/25/20 05/25/20 05/25/20 09:30 03:15 03:15 WBC 13.1 H RBC 3.39 L Hgb 9.2 L Hct 28.1 L MCV 82.9 MCH 27.1 L MCHC 32.7 RDW 13.5 Plt Count 357 MPV 9.3 Neut % (Auto) 86.2 Lymph % (Auto) 5.8 [place] % (Auto) 3.7 Eos % (Auto) 0.0 Baso % (Auto) 0.2 Neut # (Auto) 11.26 H Lymph # (Auto) 0.8 [place] # (Auto) 0.5 Eos # (Auto) 0.0 Baso # (Auto) 0.0 Nucleated RBC % (a uto) 0 Nucleated RBCs # 0.0 Sodium 140 Potassium 5.5 H Chloride 98 Carbon Dioxide 22 Anion Gap 25.5 H BUN 136 H* Creatinine 12.5 H* GFR Calculation 4.1 L Glucose 141 H Calculated Osmolal ity 336 H Calcium 8.6 Phosphorus 9.9 H* Magnesium 2.5 H Total Bilirubin 0.3 AST 21 ALT 20 Alkaline Phosphata se 164 H Total Protein 6.0 L Albumin 2.7 L Globulin 3.3 Jvakg-3-Rgowgfche Kmaay-6-Bjzgqyytm Deau-2-Hucdenfy Lwds-7-Ndqkifnc Gamma Globulins Abnorm Protein Ban d 1 U Abnormal Prot Ba nd 2 U Abnormal Prot Ba nd 3 Pro Electrophoresi s Int Thyroid Peroxidase Ab Complement C3c Complement C4c CH50 Classical [place] Hepatitis A IgM Ab Hep Bs Antigen Hep Bs Antibody Hep B Core Total A b Hepatitis C Antibo dy SARS-CoV-2 Ag (Rap id) Negative 05/24/20 05/22/20 05/22/20 05:21 14:13 14:13 WBC RBC Hgb Hct MCV MCH MCHC RDW Plt Count MPV Neut % (Auto) Lymph % (Auto) [place] % (Auto) Eos % (Auto) Baso % (Auto) Neut # (Auto) Lymph # (Auto) [place] # (Auto) Eos # (Auto) Baso # (Auto) Nucleated RBC % (a uto) Nucleated RBCs # Sodium Potassium Chloride Carbon Dioxide Anion Gap BUN Creatinine GFR Calculation Glucose Calculated Osmolal ity Calcium Phosphorus Magnesium Total Bilirubin AST ALT Alkaline Phosphata se Total Protein Albumin 2.6 L Globulin Lawoz-3-Ngdyviegf 0.7 H Yapte-4-Crumxubdf 1.1 H Ukqr-7-Fjfjnouw 0.3 L Nlmq-5-Bcdeduki 0.4 Gamma Globulins 1.4 Abnorm Protein Ban d 1 Not Reportable U Abnormal Prot Ba nd 2 Not Reportable U Abnormal Prot Ba nd 3 Not Reportable Pro Electrophoresi s Int See note Thyroid Peroxidase Ab 4 Complement C3c 188 H Complement C4c 41 CH50 Classical [place] >60 H Hepatitis A IgM Ab Pending Hep Bs Antigen Pending Hep Bs Antibody Pending Hep B Core Total A b Pending Hepatitis C Antibo dy Pending SARS-CoV-2 Ag (Rap id) Vitals: Last Vital Signs Temp 97.8 F 05/25/20 08:00 Pulse 59 L 05/25/20 08:00 Resp 16 05/25/20 08:00 BP 119/66 12/08/20 09:23 Pulse Ox 100 05/25/20 08:00 TS Medications Medications Home Medications ascorbic acid (vitamin C) [Vitamin C] 500 mg PO DAILY PRN 05/21/20 [History Confirmed 05/21/20] cholecalciferol (vitamin D3) [Vitamin D3] 2,000 unit PO DAILY PRN 05/21/20 [History Confirmed 05/21/20] cyanocobalamin (vitamin B-12) [Vitamin B-12] 100 mcg PO DAILY PRN 05/21/20 [History Confirmed 05/21/20] prednisone See Rx Instructions .ROUTE .COMPLEX 05/21/20 [History Confirmed 05/21/20] sildenafil 25 - 50 mg PO PRN 05/21/20 [History Confirmed 05/21/20] Active Medications Acetaminophen (Acetaminophen 325 Mg Tablet) 650 mg PO Q6H PRN PRN Reason: Mild/Mod Pain Or Temp >/= 101 Hydrocodone Bitart/Acetaminophen (Hydrocodone-Acetaminophen 5-325 Mg Tablet) 1 - 2 tab PO Q4H PRN PRN Reason: MODERATE TO SEVERE PAIN Amlodipine Besylate (Amlodipine 10 Mg Tablet) 10 mg PO DAILY [facility] Last Admin: 05/25/20 09:22 Dose: 10 mg Documented by: Bisacodyl (Bisacodyl 5 Mg Tablet) 10 mg PO DAILY PRN PRN Reason: CONSTIPATION Calcium Acetate (Calcium Acetate 667 Mg Capsule) 1,334 mg PO TIDWM [facility] Last Admin: 05/25/20 08:08 Dose: 1,334 mg Documented by: Clonazepam (Clonazepam 0.5 Mg Tablet) 0.25 mg PO BID PRN PRN Reason: anxiety Clonidine HCl (Clonidine 0.1 Mg Tablet) 0.1 mg PO BID [facility] Last Admin: 05/25/20 09:23 Dose: 0.1 mg Documented by: Docusate Sodium (Docusate Sodium 100 Mg Capsule) 100 mg PO BID [facility] Last Admin: 05/25/20 09:23 Dose: 100 mg Documented by: Hydralazine HCl (Hydralazine 10 Mg Tablet) 10 mg PO TID PRN PRN Reason: blood pressure Naloxone HCl (Naloxone 0.4 Mg/Ml Sdv) 0.1 mg IVP Q2M PRN PRN Reason: OPIATERV Ondansetron HCl (Ondansetron 2 Mg/Ml Sdv 2 Ml) 4 mg IVP Q8H PRN PRN Reason: vomiting, or N/V if npo Polyethylene Glycol (Polyethylene Glycol 3350 Pkt 17 Gm) 17 gm PO DAILY [facility] Last Admin: 05/25/20 09:23 Dose: Not Given Documented by: Prednisone (Prednisone 20 Mg Tablet) 80 mg PO DAILY [facility] Sodium Bicarbonate (Sodium Bicarbonate 650 Mg Tablet) 1,300 mg PO TID [facility] Last Admin: 05/25/20 09:22 Dose: 1,300 mg Documented by: Vitamin D (Cholecalciferol (Vitamin D3) 1,000 Unit Tablet) 2,000 unit PO DAILY [facility] Last Admin: 05/25/20 09:22 Dose: 2,000 unit Documented by: Discharge Plan Discharge Patient Disposition: Home Condition: Stable Prescriptions: No Action prednisone 10 mg Tablet See Rx Instructions .ROUTE .COMPLEX RF: 0 sildenafil 100 mg tablet 25 - 50 mg PO PRN RF: 0 Vitamin B-12 50 mcg Tablet 100 mcg PO DAILY PRN (Reason: unknown) RF: 0 Vitamin C 500 mg Tablet 500 mg PO DAILY PRN (Reason: unknown) RF: 0 Vitamin D3 25 mcg (1,000 unit) Tablet,Chewable 2,000 unit PO DAILY PRN (Reason: unknown) RF: 0 Discharge Orders: Discharge Order (Routine); Ordered 05/25/20 Ordered By: Kati Riggs Transfer Out of Facility (Order); Ordered 05/25/20 Ordered By: Kati Riggs Transfer Attestations Time Spent in Transfer Care*: greater than 30 min Specific Discharge Activities: Specific discharge activities: educating and/or supporting family/caregiver Status at Transfer: Cognitive status at transfer: cognitively intact , Behavioral status at transfer: cooperative , Functional status at transfer: independent ambulation Quality Metrics Clinical Quality Measures: During this hospital stay, did patient experience: None 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
[2020-05-25 12:52] LABS: CENTROMERE B ANTIBODY 1.2 POS AI (<1.0 NEG); JO-1 ANTIBODY <1.0 NEG AI (<1.0 NEG); RNP ANTIBODY <1.0 NEG AI (<1.0 NEG); SCL-70 ANTIBODY <1.0 NEG AI (<1.0 NEG); SJOGREN'S ANTIBODY (SS-A) <1.0 NEG AI (<1.0 NEG); SM ANTIBODY <1.0 NEG AI (<1.0 NEG); SS-B <1.0 NEG AI (<1.0 NEG)
[2020-05-25] MEDS: predniSONE 20 mg Tablet 80 MG PO (15:39)
--- NOTE | 2020-05-25 16:05 | PC.NURSE ---
Patient back to room from dialysis. VSS. Report called to Laya Guallpa RN at [facility]. Nurse verbalized understanding of information and did not have any further questions. Nurse to continue to monitor.
[2020-05-25 17:57] LABS: ANA SCREEN, IFA NEGATIVE (NEGATIVE)
[2020-05-25 23:34] LABS: Hepatitis A Antibody IgM Non-Reactive (Nonreactive); Hepatitis B Core AB, Total Non-Reactive (Nonreactive); Hepatitis B Surface AB 3.5 (0-8.5); Hepatitis B Surface Antigen Non-Reactive (Nonreactive); Hepatitis C Virus Antibody Non-Reactive (Nonreactive)
[2020-05-26 06:33] LABS: HIV 1 & 2 Antibody Non-Reactive (Non-Reactiv); HIV 1 & 2 Antigen Non-Reactive (Non-Reactiv)
[2020-05-28 00:58] LABS: DNA AB (DS) CRITHIDIA,IFA NEGATIVE (NEGATIVE)
== END 2020-05-25 16:42 | disposition short-term general hospital (02) | DRG 674 ==
LOC: ER 19:39 → MEDSURG 20:53 → CSU 21:41
PROVIDERS: Family Medicine; Internal Medicine Nephrology; Surgery; Admitting Provider Internal Medicine; Emergency Provider Emergency Medicine; PCP Physician Assistant; Visit Provider Student in an Organized Health Care Education/Training Program
PROC: 0JH63XZ Insertion of Tunneled Vascular Access Device into Chest Subcutaneous Tissue and Fascia, Percutaneous Approach (ICD-10-PCS; principal; 2020-05-22 09:45)
DX: N17.9 Acute kidney failure, unspecified (principal); E87.2 Acidosis; E78.5 Hyperlipidemia, unspecified; D64.9 Anemia, unspecified; E83.39 Other disorders of phosphorus metabolism; N18.4 Chronic kidney disease, stage 4 (severe); N00.9 Acute nephritic syndrome with unspecified morphologic changes; M10.9 Gout, unspecified; N25.81 Secondary hyperparathyroidism of renal origin; I12.9 Hypertensive chronic kidney disease with stage 1 through stage 4 chronic kidney disease, or unspecified chronic kidney disease; E87.5 Hyperkalemia; Z79.52 Long term (current) use of systemic steroids
CPT/HCPCS: 12345; 36415; 36600; 51798; 71045; 74018; 76770; 77001; 80051; 80053; 81001; 82310; 82330; 82550; 82805; 83036; 83605; 83735; 83880; 83970; 84100; 84155; 84165; 84439; 84484; 84550; 85007; 85025; 85610; 85651; 85730; 86140; 86160; 86705; 86706; 86709; 86803; 87086; 87340; 87426; 87806; 90935; 93005; 94640; 96372; 99282; C1750; J0690; J1644; J1815; J2704; J2930; J3010; J3490; J7030; J7050; J7512; Q3014

== ENCOUNTER → 2020-07-07 09:51 | Outpatient (BNVA) | payer MEDICARE, SELFPAY | PROVIDERS: PCP Physician Assistant; Visit Provider Family Medicine | DX: Z01.812 Encounter for preprocedural laboratory examination (principal); Z20.828 Contact with and (suspected) exposure to other viral communicable diseases | CPT/HCPCS: 87635 ==

== ENCOUNTER 2020-07-13 11:04 | Outpatient (CLI) | payer MEDICARE, SELFPAY ==
--- NOTE | 2020-07-13 11:36 | PFTS_ITS ---
Date of Study:07/13/20 Date of Dictation: MECHANICS: Forced vital capacity (FVC) is normal. Forced expiratory volume in one second (FEV1) is normal. FEV1/FVC is normal. FLOW VOLUME LOOP: Normal. LUNG VOLUMES: Total lung capacity (TLC) is normal. Residual volume (RV) is normal. DIFFUSING CAPACITY FOR CARBON MONOXIDE: Mild reduced. INTERPRETATION: The pulmonary function tests are normal. Lung volumes are normal. Gas exchange (DLCO) is mildly reduced. MTDD
== END 2020-07-13 11:05 | disposition home or self-care (01) ==
LOC: RT 11:07
PROVIDERS: PCP Physician Assistant; Visit Provider Family Medicine
DX: M31.0 Hypersensitivity angiitis (principal)
CPT/HCPCS: 94010; 94726; 94729

== ENCOUNTER 2020-09-28 11:17 | Outpatient (CLI) | payer MEDICARE, SELFPAY ==
--- NOTE | 2020-09-28 | US_ITS ---
WS: [id number] ULTRASOUND ABDOMEN LIMITED CLINICAL INFORMATION: ELEVATED LIVER ENZYMES COMPARISON: None. FINDINGS: Liver Size: Mild hepatomegaly Craniocaudal length: 16.7 cm. Echogenicity: Coarse Surface nodularity: None. Mass (size and location): None. Bile ducts Intrahepatic ducts: Normal. Common bile duct diameter: 5.8 mm. Gallbladder Normal. Gallstones: None. Gallbladder sludge: None. Gallbladder wall thickening: None. Pericholecystic fluid: None. Sonographic Lema sign: Absent. Pancreas Normal as visualized. Right kidney: Normal. Hydronephrosis: None. Size: 10.7 cm x 5.0 cm x 4.5 cm. Abdominal aorta and IVC Visualized portions are normal. Ascites: None. US/US liver [id number] IMPRESSION: 1. Mild hepatomegaly with diffuse fatty infiltration. 2. Normal gallbladder and common bile duct. 3. No hydronephrosis in right kidney.
== END 2020-09-28 11:18 | disposition home or self-care (01) ==
PROVIDERS: PCP Physician Assistant; Visit Provider Family Medicine
DX: R74.8 Abnormal levels of other serum enzymes (principal); R16.0 Hepatomegaly, not elsewhere classified; K76.0 Fatty (change of) liver, not elsewhere classified
CPT/HCPCS: 76705

== ENCOUNTER 2020-10-04 14:16 | Outpatient (CLI) | payer MEDICARE, SELFPAY ==
--- NOTE | 2020-10-04 14:29 | US_ITS ---
WS: [id number] ULTRASOUND RENAL TECHNIQUE: Ultrasound examination of both kidneys. CLINICAL INFORMATION: R KIDNEY PAIN COMPARISON: None. FINDINGS: RIGHT: Right kidney is normal in size and appearance. Echogenicity: Normal. Cortical thickness: 1.5 cm; Normal. Hydronephrosis: None. Perinephric fluid: None. Right kidney measures: 10.5 cm x 4.5 cm x 5.0 cm. LEFT: Left kidney is normal in size and appearance. Echogenicity: Normal. Cortical thickness: 1.5 cm; Normal. Hydronephrosis: None. Perinephric fluid: None. Left kidney measures: 12.0 cm x 3.7 cm x 5.1 cm. Normal visualized aorta. US/US renal BI* [id number] IMPRESSION: Normal renal ultrasound
== END 2020-10-04 14:17 | disposition home or self-care (01) ==
PROVIDERS: PCP Family Medicine
DX: N28.9 Disorder of kidney and ureter, unspecified (principal)
CPT/HCPCS: 76770

== ENCOUNTER 2020-11-10 17:41 | Outpatient (CLI) | payer MEDICARE, SELFPAY ==
--- NOTE | 2020-11-10 | CTR_ITS ---
PROCEDURE INFORMATION: Exam: CT Abdomen And Pelvis Without Contrast Exam date and time: 11/10/2020 6:07 PM Age: 64 years old Clinical indication: Abdominal pain; Localized; Right lower quadrant (rlq); Prior surgery; Surgery date: 6+ months; Surgery type: Hernia, dialysis port; Patient HX: C/O rlq abd pain; Additional info: Rlq abd pain. Call results TECHNIQUE: Imaging protocol: Computed tomography of the abdomen and pelvis without contrast. Radiation optimization: All CT scans at this facility use at least one of these dose optimization techniques: automated exposure control; mA and/or kV adjustment per patient size (includes targeted exams where dose is matched to clinical indication); or iterative reconstruction. COMPARISON: No relevant prior studies available. RADIATION DOSE METRICS: Total DLP (mGy-cm): 1516.65 FINDINGS: Tubes, catheters and devices: Peritoneal dialysis catheter is present coiled in the pelvis. The peritoneal dialysis catheter has an appropriate appearance without any kinking or disruption. Lungs: There is linear atelectasis versus scarring in the right lung base. Heart: There is borderline cardiomegaly. Liver: The liver is homogeneous in density but hyperdense compared to the spleen. This appearance can be identified with hemosideroses, hemochromatosis, Arnaldo's disease amiodarone hepatic toxicity or glycogen storage disease. Gallbladder and bile ducts: Normal. No calcified stones. No ductal dilation. Pancreas: Normal. No ductal dilation. Spleen: Normal. No splenomegaly. Adrenal glands: Normal. No mass. Kidneys and ureters: There is no evidence of hydronephrosis. There is no evidence of renal calcifications. Stomach and bowel: There is no evidence of intestinal perforation or obstruction. The wall of the distal colon is thickened but collapsed. This appearance may reflect lack of distention however mild colitis cannot be excluded. Appendix: A normal appendix is identified. Intraperitoneal space: There is a small to moderate quantity of ascites. Vasculature: The aorta demonstrates mild atherosclerotic calcification. Lymph nodes: Unremarkable.No enlarged lymph nodes. Urinary bladder: The bladder is decompressed. There is nonspecific bladder wall thickening. This may be related to incomplete distention. Reproductive: The prostate demonstrates moderate nonspecific enlargement. The seminal vesicles are normal. Bones/joints: There are moderate to severe degenerative changes in the lumbar spine. There is bilateral spondylolysis of L5 with grade 1 spondylolisthesis of L5 on S1. There is degenerative retrolisthesis of L2 on L3. No acute bony abnormality. Soft tissues: Small bilateral fat filled inguinal hernias are noted. There is induration of the subcutaneous fat adjacent to the peritoneal dialysis catheter where it enters the abdominal wall on image 51 the could reflect edema, cellulitis or contusion without fluid collection such as an abscess or hematoma. Other findings: There is mild levoscoliosis. CT/CT abdomen pelvis wo con [id number] IMPRESSION: 1. The wall of the distal colon is thickened but collapsed. This appearance may reflect lack of distention however mild colitis cannot be excluded. 2. There is induration of the subcutaneous fat adjacent to the peritoneal dialysis catheter where it enters the abdominal wall on image 51 the could reflect edema, cellulitis or contusion without fluid collection such as an abscess or hematoma. 3. Hyperdense liver as above. 4. There is a small to moderate volume of ascites compatible peritoneal dialysis. No loculated fluid collection or abscess. 5. No hydronephrosis. Unremarkable appendix. Radiation Dose CTDIVOL = (mGy): DLP = 1516.65 (mGy-cm)
== END 2020-11-10 17:42 | disposition home or self-care (01) ==
PROVIDERS: PCP Family Medicine; Visit Provider Family Medicine
DX: R10.31 Right lower quadrant pain (principal); R18.8 Other ascites
CPT/HCPCS: 74176

== ENCOUNTER 2020-12-08 09:58 | Outpatient (CLI) | payer MEDICARE, SELFPAY ==
--- NOTE | 2020-12-08 10:13 | US_ITS ---
WS: [id number] ULTRASOUND LEFT BREAST HISTORY: L BREAST CYST COMPARISON: None available. TECHNIQUE: 2-D and Doppler. Hypoechoic mass with dendritic like extensions posterior to the LEFT nipple with mild increased vascu larity. Asymmetric soft tissue measures 2.5 x 1.0 x 2.3 cm. 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 US/US breast LT limited* [id number] IMPRESSION: BI-RADS: 2-Benign FOLLOW-UP: See Report Ultrasound findings are most consistent with bilateral gynecomastia.
== END 2020-12-08 09:59 | disposition home or self-care (01) ==
LOC: RAD 10:03
PROVIDERS: PCP Family Medicine; Visit Provider Family Medicine
DX: N60.02 Solitary cyst of left breast (principal); N62 Hypertrophy of breast
CPT/HCPCS: 76642

== ENCOUNTER 2021-02-20 16:01 | Emergency (ER) | payer MEDICARE, SELFPAY ==
[2021-02-20 16:23] VITALS: BP 116/76; PULSE 86; RESP 15; TEMP 37.3; O2SAT 96; BMI 22.2
--- NOTE | 2021-02-20 18:52 | W.ED.NAVMDI ---
HPI - Nausea/Vomiting/Diarrhea General: Chief complaint: Nausea/Vomiting/Diarrhea Stated complaint: UNABLE TO EAT/DRINK Time Seen by Provider: 02/20/21 18:35 History of Present Illness: MD elicited complaint: nausea, vomiting and diarrhea Pertinent past history: other (ESRD) Onset (ago): week(s) (2) Description of vomiting: watery Description of diarrhea: watery Associated nausea: Yes Associated abdominal pain: No Location of pain: None Quality: other Exacerbating factors: eating Relieving factors: none Associated symtoms: Reports cough (mild), fevers/chills and nausea; Denies chest pain, dizziness, headache(s), rash or short of breath Review of Systems Const: Denies: fever(s) or chills Card: Denies: chest pain Resp: Reports: non-productive cough; Denies: dyspnea or productive cough GI: Reports: nausea, vomiting and diarrhea; Denies: hematochezia Neuro: Denies: headache(s) or dizziness PFS ED PFSH: Medical History (Updated 02/21/21 @ 00:07 by Miles Mars DO) Gout Surgical History (Updated 12/26/20 @ 10:48 by Odin Richardson MD) H/O left inguinal hernia repair Laparoscopic extraperitoneal History of circumcision History of peritoneal dialysis Normal colonoscopy 03/2007 S/P hemodialysis catheter insertion Removed 12/24/2020 Family History Brother Cancer Prostate Other Osteoarthritis Osteoporosis Denies family history of Anesthesia complication Bleeding disorder Social History Smoking and tobacco status: never smoked Alcohol intake: current Alcohol intake frequency: holidays/special occasions only Lives independently: Yes Household members: spouse Marital status: Current occupational status: employed Physical Exam Const: COMMON NORMALS: no acute distress GENERAL APPEARANCE: cooperative and comfortable NUTRITIONAL APPEARANCE: thin ORIENTATION/CONSCIOUSNESS: Yes awake, Yes oriented to person, Yes oriented to place and Yes oriented to time Eye: COMMON NORMALS: Equal, round and reactive pupils present and EOMs intact bilaterally PUPIL: Yes Equal, round and reactive pupils present Chest: COMMONS NORMALS: normal inspection of the chest Resp: COMMON NORMALS: normal respiratory effort, No use of accessory muscles and clear to auscultation bilaterally AUSCULTATION: clear to auscultation bilaterally Cardio: COMMON NORMALS: regular rate and regular rhythm RATE: regular rate RHYTHM: regular rhythm GI: COMMON NORMALS: Normal to inspection, nondistended, normoactive bowel sounds present, Soft to palpation and non-tender PALPATION: Yes Soft to palpation Neuro: SENSORIUM/ORIENTATION: Yes oriented to person, Yes oriented to place and Yes oriented to time Course Vital Signs: Vital signs: Vital Signs Temperature 99.1 F 02/20/21 16:23 Pulse Rate 77 02/21/21 00:31 Respiratory Rate 18 02/21/21 00:31 Blood Pressure 117/77 02/21/21 00:31 Pulse Oximetry 98 02/21/21 00:31 MDM - Nausea/Vomiting/Diarrhea MDM Narrative: Medical decision making narrative: 65-year-old peritoneal dialysis patient. He presents with not being able to hold down liquid for up to 2 weeks. He is lost 10 to 15 pounds. His hemoglobin is 7.2. Otherwise his electrolytes are essentially normal. His BUN is 63 which is not high enough for significant uremia to cause his symptoms. His creatinine is high, but usually is in peritoneal dialysis patients CT scan is essentially nonacute, and does not reveal a cause of his anorexia and vomiting. I have no GI coverage this weekend to scope him. Discussed with he and his . We will place a case management order to be seen for EGD this coming week. We will double his PPI for the next week to 2 weeks, and will place him on Zofran prior to drinking or eating. Lab Data: Labs: Lab Results 02/20/21 02/20/21 02/20/21 Range/Units 18:45 18:45 19:51 WBC 6.7 (4.0-10.0) 10^3/ uL RBC 2.46 L (4.1-5.3) 10^6/u L Hgb 7.2 L (11.7-16.6) g/dL Hct 22.3 L (42.0-52.0) % MCV 90.7 (80-94) fl MCH 29.3 (28.0-34.0) pg MCHC 32.3 (30.0-36.0) g/dL RDW 16.8 H (12.1-15.1) % Plt Count 171 (130-400) 10^3/c mm MPV 9.7 (7.4-10.4) fL Neut % (Auto) 80.3 % Lymph % (Auto) 8.6 % [place] % (Auto) 9.0 % Eos % (Auto) 0.5 % Baso % (Auto) 0.2 % Neut # (Auto) 5.35 (1.8-7.7) 10^3/u L Lymph # (Auto) 0.6 L (0.8-4.8) 10^3/u L [place] # (Auto) 0.6 (0.2-0.9) 10^3/u L Eos # (Auto) 0.0 (0.0-0.8) 10^3/u L Baso # (Auto) 0.0 (0.0-0.1) 10^3/u L Nucleated RBC % (a uto) 0 % Nucleated RBCs # 0.0 /100WBC Sodium 138 (136-145) mmol/L Potassium 4.7 (3.5-5.1) mmol/L Chloride 91 L (98-107) mmol/L Carbon Dioxide 27 (22-29) mmol/L Anion Gap 24.7 H (5-19) BUN 63 H (8-23) mg/dL Creatinine 19.4 H* (0.7-1.2) mg/dL GFR Calculation 2.4 L (90-130) mL/min Glucose 109 (65-115) mg/dL Calculated Osmolal ity 305 H (285-295) mOsm/k g Calcium 9.1 (8.5-10.5) mg/dL Phosphorus 7.3 H (2.5-4.5) mg/dL Magnesium 2.0 (1.7-2.3) mg/dL Total Bilirubin 0.6 (0.15-1.2) mg/dL AST 18 (0-40) U/L ALT 25 (0-41) U/L Alkaline Phosphata se 177 H (40-130) IU/L Creatine Kinase 50 (39-308) U/L C-Reactive Protein 155.0 H (0.0-4.9) mg/L Total Protein 6.4 L (6.6-8.7) g/dL Albumin 3.4 L (3.5-5.2) g/dL Globulin 3.0 (1.3-4.6) g/dL Lipase 64 H (13-60) U/L Procalcitonin 3.65 H (0-0.5) ng/mL Urine Color Yellow (Yellow) Urine Appearance Sl cloudy A (CLEAR) Urine pH 8 H (5-7) Ur Specific Gravit y 1.010 (1.005-1.030) Urine Protein 3+ H (Negative) Urine Glucose (UA) Norm (Normal) Urine Ketones Negative (Negative) Urine Blood 3+ H (Negative) Urine Nitrate Negative (Negative) Urine Bilirubin Neg (Negative) Urine Urobilinogen Norm (Negative) mg/dL Ur Leukocyte Shakira ase Negative (Negative) Urine RBC 50-80 H (0-2) /hpf Urine WBC 0-4 H (0-5) /hpf Ur Squamous Epith Cells 5-10 H (0-5) /hpf Amorphous Sediment Not Reportable Urine Bacteria Trace (NONE) /hpf SARS-CoV-2 Ag (Rap id) (Negative) 02/20/21 Range/Units 20:48 WBC (4.0-10.0) 10^3/ uL RBC (4.1-5.3) 10^6/u L Hgb (11.7-16.6) g/dL Hct (42.0-52.0) % MCV (80-94) fl MCH (28.0-34.0) pg MCHC (30.0-36.0) g/dL RDW (12.1-15.1) % Plt Count (130-400) 10^3/c mm MPV (7.4-10.4) fL Neut % (Auto) % Lymph % (Auto) % [place] % (Auto) % Eos % (Auto) % Baso % (Auto) % Neut # (Auto) (1.8-7.7) 10^3/u L Lymph # (Auto) (0.8-4.8) 10^3/u L [place] # (Auto) (0.2-0.9) 10^3/u L Eos # (Auto) (0.0-0.8) 10^3/u L Baso # (Auto) (0.0-0.1) 10^3/u L Nucleated RBC % (a uto) % Nucleated RBCs # /100WBC Sodium (136-145) mmol/L Potassium (3.5-5.1) mmol/L Chloride (98-107) mmol/L Carbon Dioxide (22-29) mmol/L Anion Gap (5-19) BUN (8-23) mg/dL Creatinine (0.7-1.2) mg/dL GFR Calculation (90-130) mL/min Glucose (65-115) mg/dL Calculated Osmolal ity (285-295) mOsm/k g Calcium (8.5-10.5) mg/dL Phosphorus (2.5-4.5) mg/dL Magnesium (1.7-2.3) mg/dL Total Bilirubin (0.15-1.2) mg/dL AST (0-40) U/L ALT (0-41) U/L Alkaline Phosphata se (40-130) IU/L Creatine Kinase (39-308) U/L C-Reactive Protein (0.0-4.9) mg/L Total Protein (6.6-8.7) g/dL Albumin (3.5-5.2) g/dL Globulin (1.3-4.6) g/dL Lipase (13-60) U/L Procalcitonin (0-0.5) ng/mL Urine Color (Yellow) Urine Appearance (CLEAR) Urine pH (5-7) Ur Specific Gravit y (1.005-1.030) Urine Protein (Negative) Urine Glucose (UA) (Normal) Urine Ketones (Negative) Urine Blood (Negative) Urine Nitrate (Negative) Urine Bilirubin (Negative) Urine Urobilinogen (Negative) mg/dL Ur Leukocyte Shakira ase (Negative) Urine RBC (0-2) /hpf Urine WBC (0-5) /hpf Ur Squamous Epith Cells (0-5) /hpf Amorphous Sediment Urine Bacteria (NONE) /hpf SARS-CoV-2 Ag (Rap id) Negative (Negative) Discharge Plan Discharge Patient Disposition: Home Clinical Impression: Vomiting Qualifiers: Vomiting type: unspecified Vomiting Intractability: intractable Nausea presence: with nausea Qualified Code(s): R11.2 - Nausea with vomiting, unspecified Condition: Stable Prescriptions: New ondansetron 4 mg film 4 mg PO DAILY PRN (Reason: nausea and vomiting) Qty: 15 RF: 0 No Action prednisone 10 mg Tablet See Rx Instructions .ROUTE .COMPLEX RF: 0 sildenafil 100 mg tablet 25 - 50 mg PO PRN RF: 0 Vitamin B-12 50 mcg Tablet 100 mcg PO DAILY PRN (Reason: unknown) RF: 0 Vitamin C 500 mg Tablet 500 mg PO DAILY PRN (Reason: unknown) RF: 0 Vitamin D3 25 mcg (1,000 unit) Tablet,Chewable 2,000 unit PO DAILY PRN (Reason: unknown) RF: 0 Discharge Orders: Discharge ED (Routine); Ordered 02/20/21 Ordered By: Miles Mars Referrals: Bob Peñaloza MD [Primary Care Provider] - 1-3 days Discharge Diet: Advance as tolerated and Clear Liquid Discharge Activity: Limit activity as instructed Patient Instructions: Vomiting - Adult Activity Restrictions/Additional Instructions: A case management consult has been placed to schedule an outpatient EGD/scope. Take the nausea medication 30 minutes prior to attempting liquids or food. Double your dosage of pantoprazole, taking 1 in the morning and 1 at night. Continue to quarantine at home until you get the results of your COVID-19 PCR confirmatory test. 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
--- NOTE | 2021-02-20 18:53 | XRR_ITS ---
PROCEDURE INFORMATION: Exam: XR Chest Exam date and time: 02/20/2021 6:53 PM Age: 65 years old Clinical indication: Fever TECHNIQUE: Imaging protocol: XR of the chest. Views: 1 view. COMPARISON: CR XR chest 2V* [id number] 09/22/2020 3:18 PM FINDINGS: Lungs: Unremarkable. No consolidation. Pleural spaces: Unremarkable. No pleural effusion. No pneumothorax. Heart/Mediastinum: Unremarkable. No cardiomegaly. Bones/joints: Unremarkable. XR/XR chest 1V portable [id number] IMPRESSION: No acute findings.
[2021-02-20 19:34] LABS: Basophils % 0.2 %; Eosinophils % 0.5 %; Hematocrit 22.3 % (42.0-52.0); Hemoglobin 7.2 g/dL (11.7-16.6); Lymphocytes # 0.6 10^3/uL (0.8-4.8); Lymphocytes % 8.6 %; Mean Corpuscular HGB Conc 32.3 g/dL (30.0-36.0); Mean Corpuscular Hemoglobin 29.3 pg (28.0-34.0); Mean Corpuscular Volume 90.7 fl (80-94); Mean Platelet Volume 9.7 fL (7.4-10.4); Monocytes # 0.6 10^3/uL (0.2-0.9); Neutrophils # 5.35 10^3/uL (1.8-7.7); Neutrophils % 80.3 %; Nucleated Red Blood Cells % 0 %; Platelet Count 171 10^3/cmm (130-400); Red Blood Count 2.46 10^6/uL (4.1-5.3); Red Cell Distribution Width 16.8 % (12.1-15.1); White Blood Count 6.7 10^3/uL (4.0-10.0)
[2021-02-20 19:45] LABS: Alanine Aminotransferase 25 U/L (0-41); Albumin Level 3.4 g/dL (3.5-5.2); Alkaline Phosphatase 177 IU/L (40-130); Anion Gap 24.7 (5-19); Aspartate Amino Transferase 18 U/L (0-40); Blood Urea Nitrogen 63 mg/dL (8-23); Calcium 9.1 mg/dL (8.5-10.5); Carbon Dioxide 27 mmol/L (22-29); Chloride 91 mmol/L (98-107); Creatine Phosphokinase 50 U/L (39-308); Glomerular Filtration Rate 2.4 mL/min (90-130); Glucose 109 mg/dL (65-115); Lipase 64 U/L (13-60); Osmolality Calculated 305 mOsm/kg (285-295); Phosphorus 7.3 mg/dL (2.5-4.5); Potassium 4.7 mmol/L (3.5-5.1); Sodium 138 mmol/L (136-145); Total Bilirubin 0.6 mg/dL (0.15-1.2); Total Protein 6.4 g/dL (6.6-8.7)
[2021-02-20 19:52] LABS: Procalcitonin 3.65 ng/mL (0-0.5)
--- NOTE | 2021-02-20 19:58 | CTR_ITS ---
PROCEDURE INFORMATION: Exam: CT Abdomen And Pelvis With Contrast Exam date and time: 02/20/2021 7:58 PM Age: 65 years old Clinical indication: Nausea and vomiting; Prior surgery; Surgery date: 6+ months; Surgery type: Peritoneal dialysis cath; Patient HX: C/O n/v/d; Additional info: Vomiting diarrhea, no intake, peritoneal dialysis patient TECHNIQUE: Imaging protocol: Computed tomography of the abdomen and pelvis with contrast. Radiation optimization: All CT scans at this facility use at least one of these dose optimization techniques: automated exposure control; mA and/or kV adjustment per patient size (includes targeted exams where dose is matched to clinical indication); or iterative reconstruction. Contrast material: VISI 320; Contrast volume: 95 ml; Contrast route: INTRAVENOUS (IV); COMPARISON: CT abdomen pelvis wo con [id number] 11/10/2020 6:19 PM RADIATION DOSE METRICS: Total DLP (mGy-cm): 965.04 FINDINGS: Liver: Normal. No mass. Gallbladder and bile ducts: Normal. No calcified stones. No ductal dilation. Pancreas: Normal. No ductal dilation. Spleen: The spleen is mildly enlarged measuring 12.7 cm. There is an incidental splenule. Adrenal glands: Normal. No mass. Kidneys and ureters: Normal. No hydronephrosis. Stomach and bowel: Unremarkable. No obstruction. No mucosal thickening. Appendix: No evidence of appendicitis. Intraperitoneal space: There is a small amount of free intraperitoneal fluid/ascites in the abdomen and pelvis. Distal in the of the peritoneal dialysis catheter is coiled in the pelvis. Vasculature: Unremarkable. No abdominal aortic aneurysm. Lymph nodes: Unremarkable. No enlarged lymph nodes. Urinary bladder: Urinary bladder wall thickening could be due to cystitis or lack of distention. Reproductive: Unremarkable as visualized. Bones/joints: Unremarkable. No acute fracture. Soft tissues: Unremarkable. CT/CT abdomen pelvis w con* [id number] IMPRESSION: 1. There is a small amount of intraperitoneal ascites, compatible with peritoneal dialysis. 2. Urinary bladder wall thickening could be due to cystitis or lack of distention. Radiation Dose CTDIVOL = (mGy): DLP = 965.04 (mGy-cm)
[2021-02-20] MEDS: iodixanol 320 mg/mL 100mL Btl IV (20:51)
[2021-02-20 20:58] LABS: Urine Color Yellow (Yellow)
[2021-02-20 20:59] LABS: Add Urine Microscopic? YES; Bilirubin Urine Neg (Negative); Blood Urine 3+ (Negative); Glucose Urine UA Norm (Normal); Ketones Urine Negative (Negative); Leukocyte Esterase Urine Negative (Negative); Nitrate Urine Negative (Negative); Protein Urine 3+ (Negative); Urobilinogen Urine Norm (Negative); pH Urine 8 (5-7)
[2021-02-20 21:03] LABS: Add Urine Culture? Yes; Bacteria Urine TRACE /hpf; RBC Urine 50-80 /hpf (0-2); WBC Urine 0-4 /hpf (0-5)
[2021-02-20 21:58] LABS: SARS Covid-2 Antigen Negative (Negative)
[2021-02-21 00:31] VITALS: BP 117/77; PULSE 77; RESP 18; O2SAT 98
--- NOTE | 2021-02-24 08:58 | DCPLANNER ---
Addendum entered by Lesley Petty 03/04/21 15:10: technical account manager sent email to both [facility] and [facility] at [facility] General Surgery for patient consult for an outpatient EGD. Patients information will be printed and reviewed. Original Note: technical account manager had message to schedule an outpatient EGD for patient. technical account manager faxed signed order to centralized scheduling, who will call patient with appointment information.
--- NOTE | 2021-03-18 14:18 | DCPLANNER ---
Patient did not follow up with general surgery - patient did followup with Dr. Barry.
== END 2021-02-21 00:18 | disposition home or self-care (01) ==
PROVIDERS: Emergency Provider Emergency Medicine; PCP Family Medicine
DX: R11.2 Nausea with vomiting, unspecified (principal); Z20.822 Contact with and (suspected) exposure to COVID-19
CPT/HCPCS: 71045; 74177; 80053; 81001; 82550; 83690; 83735; 84100; 84145; 85025; 86140; 87086; 87426; 87635; 99283; Q9967

== ENCOUNTER → 2021-03-02 10:00 | Day surgery (SDC) | payer MEDICARE, SELFPAY ==
[2021-03-02] VITALS (10 sets, daily range): BP systolic 109–147; BP diastolic 70–95; PULSE 80–96; RESP 16–18; TEMP 36.3–37.1; O2SAT 93–100; BMI 23.0
[2021-03-02] MEDS: sodium chloride 0.9% (100 ml) 100 ML 30 ML ×2 (11:35→13:30)
== END ==
PROVIDERS: PCP Family Medicine; Visit Provider Family Medicine
DX: D64.9 Anemia, unspecified (principal)
CPT/HCPCS: 36415; 36430; 86850; 86900; 86920; P9016

== ENCOUNTER 2021-03-02 21:03 | Emergency (ER) | payer MEDICARE, SELFPAY ==
[2021-03-02 21:18] VITALS: BP 134/83; PULSE 92; RESP 22; TEMP 37.3; O2SAT 98; BMI 23.7
--- NOTE | 2021-03-02 21:53 | ED_ITS ---
HPI - Allergic Reaction General: Chief complaint: Allergic Reaction Stated complaint: rash, had blood transfusion today Time Seen by Provider: 03/02/21 21:43 Source: patient Mode of arrival: ambulatory Limitations: no limitations History of Present Illness: HPI narrative: 65-year-old male states that he received transfusion of blood products today and received it from 1-4. 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 He states that roughly 1 hour after that at 5 PM he started having a rash. Does have a rash to his trunk and extremities. Denies any shortness of breath. Denies any worsening improving factors. He is not taking any medicines at home. Associated symptoms: Deny abdominal pain, nausea or vomiting Review of Systems Const: Denies: fever(s), chills, body aches or change in appetite Eyes: Denies: blurry vision or eye discomfort ENMT: Denies: throat pain or dental pain Card: Denies: chest pain Resp: Denies: dyspnea GI: Denies: abdominal pain, nausea, vomiting or diarrhea : Denies: dysuria Musc: Denies: neck pain or back pain Skin/Breast: Reports: rash Neuro: Denies: headache(s) Psych: Denies: depression Helder/Lymph: Denies: easy bruising All/Imm: Denies: urticaria PFSH ED PFSH: Medical History Gout Surgical History H/O left inguinal hernia repair Laparoscopic extraperitoneal History of circumcision History of peritoneal dialysis Normal colonoscopy 03/2007 S/P hemodialysis catheter insertion Removed 12/24/2020 Family History Brother Cancer Prostate Other Osteoarthritis Osteoporosis Denies family history of Anesthesia complication Bleeding disorder Social History Smoking and tobacco status: never smoked Alcohol intake: current Alcohol intake frequency: holidays/special occasions only Lives independently: Yes Household members: spouse Marital status: Current occupational status: employed Physical Exam Const: COMMON NORMALS: no acute distress, patient oriented x3 and healthy appearing HENMT: COMMON NORMALS: normocephalic and atraumatic HEAD & SCALP: normocephalic and atraumatic THROAT: posterior oropharynx normal Eye: COMMON NORMALS: Equal, round and reactive pupils present and EOMs intact bilaterally PUPIL: Yes Equal, round and reactive pupils present Neck/C-Spine: COMMON NORMALS: full ROM and supple Chest: COMMONS NORMALS: normal inspection of the chest and normal palpation of entire chest wall Resp: COMMON NORMALS: normal respiratory effort, No retractions, No use of accessory muscles and clear to auscultation bilaterally AUSCULTATION: clear to auscultation bilaterally Cardio: COMMON NORMALS: regular rate, regular rhythm and No murmurs present (Cardio) RATE: regular rate RHYTHM: regular rhythm GI: COMMON NORMALS: Normal to inspection, nondistended, normoactive bowel cheli nds present, Soft to palpation, non-tender and no masses PALPATION: Yes Soft to palpation Extremity: COMMON NORMALS: normal to inspection and full ROM Neuro: COMMON NORMALS: patient oriented x3, moves all extremities and no focal motor deficits Psych: COMMON NORMALS: mental status grossly normal, Normal thought process present and cooperative THOUGHT PROCESS: Normal thought process present Skin: COMMON NORMALS: no wounds NARRATIVE SKIN EXAM: Maculopapular rash to trunk and arms Course Vital Signs: Vital signs: Vital Signs Temperature 99.1 F 03/02/21 21:18 Pulse Rate 92 03/02/21 22:24 Respiratory Rate 16 03/02/21 22:24 Blood Pressure 112/73 03/02/21 22:24 Pulse Oximetry 98 03/02/21 22:24 MDM - Allergic Reaction MDM Narrative: Medical decision making narrative: Patient presents with an allergic reaction likely from blood products. His rash here is improving we will start him on prednisone he is to take Benadryl and Pepcid at home as well. He has no signs of anaphylaxis or airway involvement. He is to follow-up with his PCP and return if worsening. He understands agrees to plan. Discharge Plan Discharge Patient Disposition: Home Clinical Impression: Urticaria Allergic reaction Qualifiers: Encounter type: initial encounter Qualified Code(s): T78.40XA - Allergy, unspecified, initial encounter Condition: Stable Prescriptions: New prednisone 50 mg tablet 50 mg PO DAILY Qty: 5 RF: 0 No Action prednisone 10 mg Tablet See Rx Instructions .ROUTE .COMPLEX RF: 0 cholecalciferol (vitamin D3) [Vitamin D3] 25 mcg (1,000 unit) Tablet,Chewable 2,000 unit PO DAILY PRN (Reason: unknown) RF: 0 ondansetron 4 mg film 4 mg PO DAILY PRN (Reason: nausea and vomiting) Qty: 15 RF: 0 losartan 50 mg tablet 50 mg PO BID RF: 0 pantoprazole 40 mg tablet,delayed release (DR/EC) 40 mg PO DAILY RF: 0 Dialyvite [id number]-mg tablet 1 tab PO DAILY RF: 0 carvedilol 6.25 mg tablet 6,025 mg PO BID RF: 0 amlodipine 10 mg tablet 10 mg PO DAILY RF: 0 Discharge Orders: Discharge ED (Routine); Ordered 03/02/21 Ordered By: Belen Garcia Referrals: Bob Peñaloza MD [Primary Care Provider] - 1-3 days Discharge Diet: Advance as tolerated Discharge Activity: Resume usual activity Patient Instructions: Allergic Reaction, Urticaria (ED) Coding Level of Care Code ED 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
[2021-03-02] MEDS: famotidine 20 mg/2 mL INJ 40 MG IVP (22:00)
[2021-03-02] MEDS: diphenhydrAMINE 50 mg/mL SDV 1mL IVP (22:00)
[2021-03-02 22:24] VITALS: BP 112/73; PULSE 92; RESP 16; O2SAT 98
--- NOTE | 2021-03-02 22:47 | PC.NURSE ---
Rash appears much better. Pt reports feeling much better now.
[2021-03-02 23:09] VITALS: BP 111/68; PULSE 80; RESP 16; O2SAT 98
== END 2021-03-02 23:10 | disposition home or self-care (01) ==
PROVIDERS: Emergency Provider Emergency Medicine; PCP Family Medicine
DX: L50.0 Allergic urticaria (principal); T78.40XA Allergy, unspecified, initial encounter; Z20.822 Contact with and (suspected) exposure to COVID-19
CPT/HCPCS: 87635; 96374; 96375; 99283; J1200; J2930; J3490

== ENCOUNTER 2021-03-04 09:28 | Day surgery (SDC) | payer MEDICARE, SELFPAY ==
[2021-03-02 13:46] VITALS: BMI 23.7
--- NOTE | 2021-03-04 09:07 | P.HP_ITS ---
Same Day Surgery H&P Indication for Procedure/HPI DATE OF PROCEDURE: March 04, 2021 CHIEF COMPLAINT/INDICATIONFOR SURGICAL PROCEDURE: Anemia and vomiting and anemia PREOP DIAGNOSIS: Acute kidney injury/renal failure. PLANNED PROCEDRUE: Operation Date: 03/04/21 11:00 Proposed Procedures p EGD 43178 R11.2(Not Applicable) - Alvaro Barry MD Medications/Allergies* Home Medications Medication Instructions Recorded Confirmed Type cholecalciferol (vitamin D3) 2,000 unit PO DAILY PRN 05/21/20 03/02/21 History [Vitamin D3] prednisone See Rx Instructions .ROUTE .COMPLEX 05/21/20 03/02/21 History B complex 12-[id number]-biot-zinc 1 tab PO DAILY 03/02/21 03/02/21 History [Dialyvite] amlodipine 10 mg PO DAILY 03/02/21 03/02/21 History carvedilol 6,025 mg PO BID 03/02/21 03/02/21 History losartan 50 mg PO BID 03/02/21 03/02/21 History pantoprazole 40 mg PO DAILY 03/02/21 03/02/21 History Allergies/Adverse Reactions Allergy/AdvReac Type Severity Reaction Status Date / Time heparin Allergy Burnt out Verified 03/02/21 13:36 platelets Penicillins AdvReac I just Verified 03/02/21 13:36 did not feel good Pertinent History/Comorbid Conditions* Medical History (Updated 03/02/21 @ 22:57 by Belen Garcia MD) Gout Surgical History (Updated 12/26/20 @ 10:48 by Odin Richardson MD) H/O left inguinal hernia repair Laparoscopic extraperitoneal History of circumcision History of peritoneal dialysis Normal colonoscopy 03/2007 S/P hemodialysis catheter insertion Removed 12/24/2020 Family History (Updated 06/25/19 @ 09:27 by ОЛЕГ Michael) Osteoporosis Osteoarthritis Cancer Brother Prostate Denies family history of Anesthesia complication Bleeding disorder Social History Smoking and tobacco status: never smoked Alcohol intake: current Alcohol intake frequency: holidays/special occasions only Lives independently: Yes Household members: spouse Marital status: Current occupational status: employed Pertinent Exam Findings alert, oriented x 3, clear to auscultation bilaterally, regular rate & rhythm, operative site marked and procedure specific exam findings Recommendations Surgery/Procedure today Coding Level of Care Code 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
--- NOTE | 2021-03-04 10:01 | ANES.PREANE2 ---
Pre-Anesthetic Assessment Pre-Anesthetic Assessment: Height/Weight: Height 1.68 m Weight 66.678 kg Preop Diagnosis: n/v Proposed Procedure: Operation Date: 03/04/21 11:00 Proposed Procedures p EGD [id number] R11.2(Not Applicable) - Alvaro Barry MD Was Beta Suraj taken within 24 hours: N/A Was Clonidine taken within 24 hours: N/A Social: Social History: No alcohol and No tobacco Exam: Pre-Anes Outpt Exam: alert, oriented x 3, clear to auscultation bilaterally and regular rate & rhythm Airway: Submandibular: WNL Cervical ROM: WNL MP: 2 Additional comments: Poor dentition CV/HEM: CV/HEM: Anemia (recently transfused) and HTN : : Chronic renal failure Comments: Goodpasture's, chronic steroid GI: GI: GERD Anesthetic Plan: ASA status: 3 Anesthesia: MAC Risk of > 500 ml blood loss (7ml/kg in children): No PFSH Anesthesia PFSH: Medical History Gout Surgical History H/O left inguinal hernia repair Laparoscopic extraperitoneal History of circumcision History of peritoneal dialysis Normal colonoscopy 03/2007 S/P hemodialysis catheter insertion Removed 12/24/2020 Family History Brother Cancer Prostate Other Osteoarthritis Osteoporosis Denies family history of Anesthesia complication Bleeding disorder Social History Smoking and tobacco status: never smoked Alcohol intake: current Alcohol intake frequency: holidays/special occasions only Lives independently: Yes Household members: spouse Marital status: Current occupational status: employed Data Anesthesia Cardiac Studies: No Data to Display
[2021-03-04 10:06] VITALS: BP 137/83; PULSE 61; RESP 18; TEMP 36.2; O2SAT 100
[2021-03-04] MEDS: sodium chloride 0.9% 1,000 ML 30 ML IV (10:33)
[2021-03-04 11:30] VITALS: BP 122/78; PULSE 69; RESP 16; TEMP 36.1; O2SAT 100
[2021-03-04 11:44] VITALS: BP 125/77; PULSE 71; RESP 16; O2SAT 99
--- NOTE | 2021-03-04 13:31 | ANE.PACU2 ---
Inpatient post-anesthesia follow up: Airway intact: Yes Vital signs: Temperature 97 F Pulse Rate 71 Respiratory Rate 16 Blood Pressure 125/77 Pulse Oximetry 99 Oxygen Delivery Me thod Room Air Oxygen Flow Rate 3 Fraction of Inspir ed Oxygen Hydration adequate: Yes Nausea and vomiting: No Pain level: 1 Mental status: Baseline
== END 2021-03-04 12:03 | disposition home or self-care (01) ==
PROVIDERS: PCP Family Medicine; Visit Provider Internal Medicine
PROC: 0DJ08ZZ Inspection of Upper Intestinal Tract, Via Natural or Artificial Opening Endoscopic (ICD-10-PCS; CPT 43235; principal; 2021-03-04 11:00)
DX: D64.9 Anemia, unspecified (principal); R11.2 Nausea with vomiting, unspecified; N17.9 Acute kidney failure, unspecified; N18.9 Chronic kidney disease, unspecified; I12.9 Hypertensive chronic kidney disease with stage 1 through stage 4 chronic kidney disease, or unspecified chronic kidney disease
CPT/HCPCS: 43235; 96360; J7030

== ENCOUNTER 2021-03-16 14:23 | Emergency (ER) | payer MEDICARE, SELFPAY ==
[2021-03-16 14:44] VITALS: BP 137/84; PULSE 89; RESP 18; TEMP 36.9; O2SAT 98; BMI 22.1
[2021-03-16 15:02] VITALS: BP 144/90; PULSE 84; RESP 16; TEMP 36.8; O2SAT 100
--- NOTE | 2021-03-16 15:12 | XR_ITS ---
WS: [id number] ABDOMEN 2 VIEW(S) HISTORY: Abd pain COMPARISON: 05/23/2020 Normal bowel gas pattern. No masses or calcifications. Peritoneal dialysis catheter is coiled in the pelvis. No free air is kennedy ntified. No air-fluid levels. Degenerative RIGHT curvature lumbar spine. XR/XR abdomen min 2V [id number] IMPRESSION: 1. No free air or GI tract obstruction. 2. Peritoneal dialysis catheter coiled in the pelvis.
--- NOTE | 2021-03-16 15:13 | ED_ITS ---
HPI - Nausea/Vomiting/Diarrhea General: Chief complaint: Nausea/Vomiting/Diarrhea Stated complaint: N/V/D Time Seen by Provider: 03/16/21 15:07 History of Present Illness: HPI Narrative: This patient is a 65-year-old male with a long history of renal failure presents to the emergency department vomiting and diarrhea has been watery for the past 4 days. Patient had an episode like this a couple weeks ago. Patient also recently had to have a blood transfusion due to anemia. Patient does take peritoneal dialysis at home. Patient states just not had much of an appetite. Patient has had a recent EGD and colonoscopy that were negative for any acute findings. Will do medical evaluation treat as needed MD elicited complaint: diarrhea Onset (ago): day(s) Description of vomiting: watery Associated nausea: No Associated abdominal pain: No Associated symtoms: Denies anxiety, change in vision, chest pain, dysuria, fatigue, headache(s), nausea or palpitations Review of Systems General: Reports: 10 or more systems reviewed and unremarkable except in HPI and below Const: Denies: fever(s), chills, body aches or fatigue Eyes: Denies: change in vision or blurry vision ENMT: Denies: throat pain, hoarseness or mouth pain Card: Denies: chest pain, palpitations, irregular heart rhythm, edema, swelling of feet/ankles or lightheadedness Resp: Denies: dyspnea, productive cough, non-productive cough, wheezing or pain on inspiration GI: Reports: diarrhea; Denies: nausea : Denies: flank pain, dysuria, urinary frequency, urinary urgency or urinary hesitancy Musc: Denies: neck pain, back pain, extremity pain, extremity swelling, joint pain, joint swelling, joint redness, joint warmth or limited range of motion Skin/Breast: Denies: rash, pruritus, erythema or skin tenderness Neuro: Denies: headache(s), numbness in extremities or weakness in extremities Psych: Denies: anxiety or depression PFS ED PFSH: Medical History Gout Surgical History H/O left inguinal hernia repair Laparoscopic extraperitoneal History of circumcision History of peritoneal dialysis Normal colonoscopy 03/2007 S/P hemodialysis catheter insertion Removed 12/24/2020 Family History Brother Cancer Prostate Other Osteoarthritis Osteoporosis Denies family history of Anesthesia complication Bleeding disorder Social History Smoking and tobacco status: never smoked Alcohol intake: current Alcohol intake frequency: holidays/special occasions only Lives independently: Yes Household members: spouse Marital status: Current occupational status: employed Physical Exam Const: COMMON NORMALS: no acute distress, average body habitus, patient oriented x3, no limitations, healthy appearing, alert and well nourished HENMT: COMMON NORMALS: normocephalic, atraumatic, hearing grossly normal bilaterally, external ears normal, EAC's normal, TM's normal bilaterally, Normal external nose present, Normal nasal mucous membranes and turbinates present, moist oral mucous membranes, oropharynx normal, dentition normal and gingiva normal HEAD & SCALP: normocephalic and atraumatic NOSE: Normal external nose present and Normal nasal mucous membranes and turbinates present EXTERNAL EAR: Yes external ears normal EXTERNAL AUDITORY CANAL: EAC's normal TYMPANIC MEMBRANE: TM's normal bilaterally Neck/C-Spine: COMMON NORMALS: full ROM, no lymphadenopathy, supple, no meningeal signs, no JVD, Thyroid normal and No carotid bruits THYROID: Thyroid normal Chest: COMMONS NORMALS: normal inspection of the chest, normal palpation of entire chest wall, normal inspection of the breasts and normal palpation of the breasts Breast/axilla inspection: Yes normal inspection of the breasts BREAST/AXILLA PALPATION: Yes normal palpation of the breasts Resp: COMMON NORMALS: normal respiratory effort, No retractions, No use of accessory muscles, clear to auscultation bilaterally and percussion normal AUSCULTATION: clear to auscultation bilaterally PERCUSSION: percussion normal Cardio: COMMON NORMALS: no JVD, regular rate, regular rhythm, S1 normal heart sound present, S2 normal heart sound present, No gallops present (Cardio), No clicks present (Cardio), No murmurs present (Cardio), No rub (Cardio) and Peripheral pulses 2+ throughout RATE: regular rate RHYTHM: regular rhythm HEART SOUNDS: S1 normal heart sound present and S2 normal heart sound present PERIPHERAL PULSES: Peripheral pulses 2+ throughout GI: COMMON NORMALS: Normal to inspection, nondistended, normoactive bowel sounds present, Soft to palpation, non-tender, No hepatosplenomegaly present, no masses and no bruits PALPATION: Yes Soft to palpation and Yes No hepatosplenomegaly present : COMMON NORMALS: Yes no CVA tenderness BLADDER/KIDNEY EXAM: Yes no CVA tenderness Back/Pelvis: COMMON NORMALS: no CVA tenderness, thoracic and lumbar spine normal to inspection, no thoracic nor lumbar tenderness, thoraco-lumbar ROM normal and straight leg raise negative bilaterally Extremity: COMMON NORMALS: normal to inspection, full ROM, capillary refill normal, no joint enlargement, no clubbing, cyanosis or edema, no calf tenderness and no pedal edema Neuro: COMMON NORMALS: patient oriented x3 SENSORIUM/ORIENTATION: Yes alert MENINGEAL SIGNS: Yes no meningeal signs Course Reevaluation(s): Reevaluation #1: Negative evaluation in the acute findings. Chronic conditions appear to be stable. Patient will be placed on Flagyl. Take as instructed. Patient is to monitor p.o. fluids. To prevent dehydration. Patient should have a high-fiber diet. Follow-up with PCP in 2 to 3 days. Time: 16:03 Vital Signs: Vital signs: Vital Signs Temperature 98.2 F 03/16/21 15:02 Pulse Rate 84 03/16/21 15:02 Respiratory Rate 16 03/16/21 15:02 Blood Pressure 144/90 03/16/21 15:02 Pulse Oximetry 100 03/16/21 15:02 MDM - Nausea/Vomiting/Diarrhea MDM Narrative: Medical decision making narrative: This patient is a 65-year-old male with a long history of renal failure presents to the emergency department vomiting and diarrhea has been watery for the past 4 days. Patient had an episode like this a couple weeks ago. Patient also recently had to have a blood transfusion due to anemia. Patient does take peritoneal dialysis at home. Patient states just not had much of an appetite. Patient has had a recent EGD and colonoscopy that were negative for any acute findings. Will do medical evaluation treat as needed Negative evaluation in the acute findings. Chronic conditions appear to be stable. Patient will be placed on Flagyl. Take as instructed. Patient is to monitor p.o. fluids. To prevent dehydration. Patient should have a high-fiber diet. Follow-up with PCP in 2 to 3 days. Lab Data: Labs: Lab Results 03/16/21 03/16/21 03/16/21 13:17 13:17 15:11 WBC 8.6 10^3/uL 10^3/ uL (4.0-10.0) RBC 3.65 10^6/uL L 10 ^6/uL (4.1-5.3) Hgb 11.4 g/dL L g/dL (11.7-16.6) Hct 35.4 % L % (42.0-52.0) MCV 97.0 fl H fl (80-94) MCH 31.2 pg pg (28.0-34.0) MCHC 32.2 g/dL g/dL (30.0-36.0) RDW 17.3 % H % (12.1-15.1) Plt Count 152 10^3/cmm 10^3 /cmm (130-400) MPV 9.8 fL fL (7.4-10.4) Neut % (Auto) 81.1 % % Lymph % (Auto) 8.5 % % [place] % (Auto) 8.5 % % Eos % (Auto) 0.0 % % Baso % (Auto) 0.5 % % Neut # (Auto) 6.96 10^3/uL 10^3 /uL (1.8-7.7) Lymph # (Auto) 0.7 10^3/uL L 10^ 3/uL (0.8-4.8) [place] # (Auto) 0.7 10^3/uL 10^3/ uL (0.2-0.9) Eos # (Auto) 0.0 10^3/uL 10^3/ uL (0.0-0.8) Baso # (Auto) 0.0 10^3/uL 10^3/ uL (0.0-0.1) Nucleated RBC % (a uto) 0 % % Nucleated RBCs # 0.0 /100WBC /100W BC Sodium 143 mmol/L mmol/L (136-145) Potassium 4.1 mmol/L mmol/L (3.5-5.1) Chloride 99 mmol/L mmol/L (98-107) Carbon Dioxide 25 mmol/L mmol/L (22-29) Anion Gap 23.1 H (5-19) BUN 73 mg/dL H mg/dL (8-23) Creatinine 13.5 mg/dL H* mg/ dL (0.7-1.2) GFR Calculation 3.7 mL/min L mL/m in (90-130) Glucose 87 mg/dL mg/dL (65-115) Calculated Osmolal ity 317 mOsm/kg H mOs m/kg (285-295) Calcium 8.2 mg/dL L mg/dL (8.5-10.5) Total Bilirubin 0.4 mg/dL mg/dL (0.15-1.2) AST 13 U/L U/L (0-40) ALT 18 U/L U/L (0-41) Alkaline Phosphata se 139 IU/L H IU/L (40-130) Total Protein 6.3 g/dL L g/dL (6.6-8.7) Albumin 3.1 g/dL L g/dL (3.5-5.2) Globulin 3.2 g/dL g/dL (1.3-4.6) Lipase 124 U/L H U/L (13-60) Urine Color Yellow (Yellow) Urine Appearance Sl hazy (CLEAR) Urine pH 5 (5-7) Ur Specific Gravit y 1.010 (1.005-1.030) Urine Protein 3+ H (Negative) Urine Glucose (UA) Norm (Normal) Urine Ketones Negative (Negative) Urine Blood 3+ H (Negative) Urine Nitrate Negative (Negative) Urine Bilirubin 1+ H (Negative) Urine Urobilinogen Norm mg/dL mg/dL (Negative) Ur Leukocyte Shakira ase Negative (Negative) Urine RBC 10-15 /hpf H /hpf (0-2) Urine WBC 0-4 /hpf H /hpf (0-5) Ur Squamous Epith Cells 5-10 /hpf H /hpf (0-5) Amorphous Sediment Not Reportable Urine Bacteria Trace /hpf /hpf (NONE) Urine Mucus Trace /hpf /hpf Imaging Data^: Abdominal x-ray: Attestation: I personally reviewed and interpreted this imaging study as follows: Radiologist's impression: Negative for acute findings. Peritoneal dialysis port in place Discharge Plan Discharge Patient Disposition: Home Clinical Impression: Diarrhea, Chronic kidney disease with end stage renal failure on dialysis Condition: Stable Prescriptions: New metronidazole [Flagyl] 500 mg tablet 500 mg PO BID 7 Days Qty: 14 RF: 0 No Action prednisone 50 mg tablet 50 mg PO DAILY Qty: 5 RF: 0 ondansetron 4 mg film 4 mg PO DAILY PRN (Reason: nausea and vomiting) Qty: 15 RF: 0 losartan 50 mg tablet 50 mg PO BID RF: 0 pantoprazole 40 mg tablet,delayed release (DR/EC) 40 mg PO DAILY RF: 0 Dialyvite [id number] px-hp-txh-mg tablet 1 tab PO DAILY RF: 0 carvedilol 6.25 mg tablet 6,025 mg PO BID RF: 0 amlodipine 10 mg tablet 10 mg PO DAILY RF: 0 Discharge Orders: Discharge ED (Routine); Ordered 03/16/21 Ordered By: Panchito Desai Referrals: Bob Peñaloza MD [Primary Care Provider] - Discharge Diet: Advance as tolerated and Usual diet Discharge Activity: Resume usual activity Patient Instructions: Opioid Safety Activity Restrictions/Additional Instructions: Negative evaluation in the acute findings. Chronic conditions appear to be stable. Patient will be placed on Flagyl. Take as instructed. Patient is to monitor p.o. fluids. To prevent dehydration. Patient should have a high-fiber diet. Follow-up with PCP in 2 to 3 days. Coding Level of Care Code ED [place] for Chg Fwd Exam Comprehensive
[2021-03-16] MEDS: sodium chloride 0.9% 500 ML IV (15:23)
[2021-03-16] MEDS: ondansetron 2 mg/ML SDV 2 mL 4 MG IVP (15:23)
[2021-03-16 15:28] LABS: Basophils % 0.5 %; Hematocrit 35.4 % (42.0-52.0); Hemoglobin 11.4 g/dL (11.7-16.6); Lymphocytes # 0.7 10^3/uL (0.8-4.8); Lymphocytes % 8.5 %; Mean Corpuscular HGB Conc 32.2 g/dL (30.0-36.0); Mean Corpuscular Hemoglobin 31.2 pg (28.0-34.0); Mean Platelet Volume 9.8 fL (7.4-10.4); Monocytes # 0.7 10^3/uL (0.2-0.9); Monocytes % 8.5 %; Neutrophils # 6.96 10^3/uL (1.8-7.7); Neutrophils % 81.1 %; Nucleated Red Blood Cells % 0 %; Platelet Count 152 10^3/cmm (130-400); Red Blood Count 3.65 10^6/uL (4.1-5.3); Red Cell Distribution Width 17.3 % (12.1-15.1); White Blood Count 8.6 10^3/uL (4.0-10.0)
[2021-03-16 15:50] LABS: Alanine Aminotransferase 18 U/L (0-41); Albumin Level 3.1 g/dL (3.5-5.2); Alkaline Phosphatase 139 IU/L (40-130); Anion Gap 23.1 (5-19); Aspartate Amino Transferase 13 U/L (0-40); Blood Urea Nitrogen 73 mg/dL (8-23); Calcium 8.2 mg/dL (8.5-10.5); Carbon Dioxide 25 mmol/L (22-29); Chloride 99 mmol/L (98-107); Globulin 3.2 g/dL (1.3-4.6); Glomerular Filtration Rate 3.7 mL/min (90-130); Glucose 87 mg/dL (65-115); Lipase 124 U/L (13-60); Osmolality Calculated 317 mOsm/kg (285-295); Potassium 4.1 mmol/L (3.5-5.1); Sodium 143 mmol/L (136-145); Total Bilirubin 0.4 mg/dL (0.15-1.2); Total Protein 6.3 g/dL (6.6-8.7)
[2021-03-16 15:53] LABS: Protein Urine 3+ (Negative); Urine Appearance SL Hazy (CLEAR); Urine Color Yellow (Yellow); pH Urine 5 (5-7)
[2021-03-16 15:54] LABS: Add Urine Microscopic? YES; Bilirubin Urine 1+ (Negative); Blood Urine 3+ (Negative); Glucose Urine UA Norm (Normal); Ketones Urine Negative (Negative); Leukocyte Esterase Urine Negative (Negative); Nitrate Urine Negative (Negative); Urobilinogen Urine Norm (Negative)
[2021-03-16 15:55] LABS: Add Urine Culture? No; Bacteria Urine TRACE /hpf; Mucus Urine TRACE /hpf; WBC Urine 0-4 /hpf (0-5)
[2021-03-16 16:16] VITALS: BP 145/80; PULSE 74; RESP 16; TEMP 36.6
== END 2021-03-16 16:20 | disposition home or self-care (01) ==
PROVIDERS: Physician Assistant; Emergency Provider Emergency Medicine; PCP Family Medicine
DX: R19.7 Diarrhea, unspecified (principal); N18.6 End stage renal disease; Z99.2 Dependence on renal dialysis
CPT/HCPCS: 74019; 80053; 81001; 83690; 85025; 96361; 96374; 99284; J2405; J7040

== ENCOUNTER → 2021-07-28 11:33 | Outpatient (BNVA) | payer MEDICARE, SELFPAY | PROVIDERS: PCP Family Medicine; Visit Provider Family Medicine | DX: E83.39 Other disorders of phosphorus metabolism (principal); E03.9 Hypothyroidism, unspecified; D64.9 Anemia, unspecified; E87.5 Hyperkalemia; G25.81 Restless legs syndrome; M31.0 Hypersensitivity angiitis; Z98.890 Other specified postprocedural states; Z76.89 Persons encountering health services in other specified circumstances; R11.2 Nausea with vomiting, unspecified; M10.9 Gout, unspecified; Z68.26 Body mass index [BMI] 26.0-26.9, adult; F12.10 Cannabis abuse, uncomplicated | CPT/HCPCS: 80053; 84439; 84443; 84550; 85025; 86803; 87806 ==

== ENCOUNTER → 2021-09-13 14:09 | Outpatient (BNVA) | payer MEDICARE, SELFPAY | PROVIDERS: PCP Family Medicine; Visit Provider Internal Medicine Pulmonary Disease | DX: M31.10 Thrombotic microangiopathy, unspecified (principal); N18.6 End stage renal disease; Z99.2 Dependence on renal dialysis; M10.9 Gout, unspecified; R06.02 Shortness of breath | CPT/HCPCS: 99214 ==

== ENCOUNTER → 2021-10-18 10:41 | Outpatient (BNVA) | payer MEDICARE, SELFPAY | PROVIDERS: PCP Family Medicine; Visit Provider Family Medicine | DX: D64.9 Anemia, unspecified (principal); E03.9 Hypothyroidism, unspecified; E83.39 Other disorders of phosphorus metabolism; M10.9 Gout, unspecified; M31.0 Hypersensitivity angiitis | CPT/HCPCS: 80053; 84100; 84439; 84443; 84550 ==

== ENCOUNTER → 2021-11-11 09:33 | Outpatient (BNVA) | payer MEDICARE, SELFPAY | PROVIDERS: PCP Family Medicine; Visit Provider Internal Medicine Pulmonary Disease | DX: M31.0 Hypersensitivity angiitis (principal); N18.6 End stage renal disease; Z99.2 Dependence on renal dialysis; R06.02 Shortness of breath; D64.9 Anemia, unspecified; M10.9 Gout, unspecified; E87.2 Acidosis; N17.9 Acute kidney failure, unspecified | CPT/HCPCS: 99214; 99215 ==

== ENCOUNTER 2021-11-11 10:21 | Emergency (ER) | payer MEDICARE, SELFPAY ==
[2021-11-11 10:25] VITALS: BP 70/36; PULSE 69; RESP 16; TEMP 37.9; O2SAT 97; BMI 24.3
[2021-11-11 10:45] VITALS: BP 101/50; PULSE 75; RESP 16; O2SAT 96
--- NOTE | 2021-11-11 10:56 | ECG_ITS ---
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 Measurements Intervals [place] Rate: 77 P: 57 MN: 165 QRS: 59 QRSD: 98 T: 70 QT: 370 QTc: 419 Interpretive Statements SINUS RHYTHM Compared to ECG 05/21/2020 18:41:10 Sinus bradycardia no longer present Electronically Signed On 11-11-2021 22:02:49 CDT by Kirsten Alvarez M.D. [id number]
--- NOTE | 2021-11-11 10:57 | ED_ITS ---
HPI - Weakness General: Chief complaint: Weakness Stated complaint: Low Blood Pressure Time Seen by Provider: 11/11/21 10:49 Source: patient and family Mode of arrival: ambulatory Limitations: no limitations History of Present Illness: This patient was sent to the emergency department from the pulmonology clinic when they noted he had a low blood pressure at that location. Patient states he feels weak and tired but that is unusual for him. He has a history of chronic kidney disease and does nightly peritoneal dialysis. He states his weights have been relatively stable. He denies any chest pain or shortness of breath. He states he has taken some of his medication this morning but has not eaten his usual breakfast but has drank a little bit of fluids. He denies any fevers or chills. He makes some urine but not a whole lot according to him. He denies any known history of coronary disease. He has not been recently ill with nausea vomiting or diarrhea. His medications have been adjust ed downwards regarding his blood pressure medicines in the last month. MD Complaint: generalized weakness Location: generalized Associated symptoms: Reports no associated symptoms; Denies chest pain, chills, fever(s), headache(s) or syncope Review of Systems Const: Reports: fatigue; Denies: fever(s) or chills Eyes: Denies: change in vision ENMT: Denies: throat pain or odynophagia Card: Denies: chest pain, palpitations, irregular heart rhythm, edema, swelling of feet/ankles, syncope or pre-syncope Resp: Denies: dyspnea, productive cough or non-productive cough GI: Denies: abdominal pain or diarrhea : Reports: oliguria Musc: Denies: neck pain, back pain, extremity pain or extremity swelling Skin/Breast: Denies: rash Neuro: Denies: headache(s), numbness in extremities or weakness in extremities Psych: Denies: anxiety or depression All/Imm: Denies: urticaria or seasonal rhinorrhea PFSH ED PFSH: Medical History Acute kidney injury Anemia Gout Metabolic acidosis Surgical History H/O left inguinal hernia repair Laparoscopic extraperitoneal History of circumcision History of peritoneal dialysis Normal colonoscopy 03/2007 S/P hemodialysis catheter insertion Removed 12/24/2020 Family History Brother Cancer Prostate Other Osteoarthritis Osteoporosis Denies family history of Anesthesia complication Bleeding disorder Social History Smoking and tobacco status: never smoked Alcohol intake: current Alcohol intake frequency: holidays/special occasions only Lives independently: Yes Household members: spouse Marital status: Current occupational status: employed Physical Exam Narrative: EXAM NARRATIVE: The patient is alert. He answers questions in a goal-directed fashion. Const: COMMON NORMALS: no acute distress and patient oriented x3 GENERAL APPEARANCE: cooperative, comfortable and well kempt HENMT: COMMON NORMALS: normocephalic, Normal nasal mucous membranes and turbinates present and moist oral mucous membranes HEAD & SCALP: normocephalic NOSE: Normal nasal mucous membranes and turbinates present Eye: COMMON NORMALS: Equal, round and reactive pupils present, EOMs intact bilaterally and conjunctivae normal CONJUNCTIVA: Yes conjunctivae normal PUPIL: Yes Equal, round and reactive pupils present Neck/C-Spine: COMMON NORMALS: full ROM, no lymphadenopathy, supple and no JVD Chest: COMMONS NORMALS: normal inspection of the chest and normal palpation of entire chest wall Resp: COMMON NORMALS: normal respiratory effort, No retractions, No use of accessory muscles and clear to auscultation bilaterally EFFORT & INSPECTION: Yes able to speak in complete sentences AUSCULTATION: clear to auscultation bilaterally Cardio: COMMON NORMALS: no JVD, regular rate, regular rhythm, No murmurs present (Cardio) and Peripheral pulses 2+ throughout RATE: regular rate RHYTHM: regular rhythm PERIPHERAL PULSES: Peripheral pulses 2+ throughout GI: COMMON NORMALS: Normal to inspection, nondistended, normoactive bowel sounds present, Soft to palpation, non-tender and no masses PALPATION: Yes Soft to palpation OTHER: He has a peritoneal catheter in the left paramedian abdomen without any drainage or erythema. There is no distention, tympanic areas to percussion or shifting fluid. : COMMON NORMALS: Yes no CVA tenderness BLADDER/KIDNEY EXAM: Yes no CVA tenderness Back/Pelvis: COMMON NORMALS: no CVA tenderness, thoracic and lumbar spine normal to inspection, no thoracic nor lumbar tenderness, thoraco-lumbar ROM normal and straight leg raise negative bilaterally Extremity: COMMON NORMALS: normal to inspection, full ROM, capillary refill normal, no calf tenderness and no pedal edema Neuro: COMMON NORMALS: patient oriented x3, moves all extremities, no focal motor deficits and no sensory deficits noted Psych: COMMON NORMALS: mental status grossly normal APPEARANCE: Yes well kempt Skin: COMMON NORMALS: no rashes or lesions noted, no wounds, turgor normal and no jaundice GENERAL SKIN EXAM: no rashes or lesions noted and turgor normal Course Reevaluation(s): Reevaluation #1: Blood pressure is now 97/63. Bedside ultrasound was used to do a limited cardiac evaluation. Using the phased array probe a left longitudinal view as well as a four-chamber view as well as a subxiphoid view were used to visualize the myocardium. No evidence of any significant pericardial effusion. He has RV and LV appear to be grossly kasi and normal anatomically. Probe was then slid down to look at the IVC which appeared to be normal diameter without any evidence of collapse with inspiration. Time: 12:11 Reevaluation #2: Patient was allowed to ambulate unaided about the emergency department which she did well without any difficulty and stated he felt fine subjectively. Given his current clinical picture I think he is reasonable to be discharged home. I t hink he needs to further decrease his medications. We discussed this as well as return precautions with both he and his family. We will go ahead and have him decrease his amlodipine to 5 mg daily as opposed to the 10 mg daily he has been taking. Otherwise continue the medications as recently changed and follow-up with his prescribing physician. Time: 13:01 Vital Signs: Vital signs: Vital Signs Temperature 100.2 F H 11/11/21 10:25 Pulse Rate 76 11/11/21 12:54 Respiratory Rate 16 11/11/21 12:54 Blood Pressure 80/56 11/11/21 12:54 Pulse Oximetry 95 11/11/21 12:54 MDM - Weakness Medical Decision Making Patient with a known history of significant hypertension who was sent here because of hypotension received a bolus of IV fluids screening laboratories and observation in the emergency department. His pressures albeit not extremely high were noted to be in the 90-100 range systolic and he ambulated without any difficulty. He feels subjectively fine and I think it is reasonable for us to discharge him home with spouse. We will have him further decrease his amlodipin e to 5 mg daily and monitor his blood pressure carefully with good return precautions. Stable at this time. Medical Records I reviewed the patient's medical records. Lab Data I reviewed the patient's lab results. : 11/11/21 10:03 11/11/21 10:03 Laboratory Results WBC 4.4 10^3/uL (4.0-10.0) 11/11/21 10:03 RBC 3.79 10^6/uL (4.1-5.3) L 11/11/21 10:03 Hgb 11.6 g/dL (11.7-16.6) L 11/11/21 10:03 Hct 33.8 % (42.0-52.0) L 11/11/21 10:03 MCV 89.2 fl (80-94) 11/11/21 10:03 MCH 30.6 pg (28.0-34.0) 11/11/21 10:03 MCHC 34.3 g/dL (30.0-36.0) 11/11/21 10:03 RDW 13.8 % (12.1-15.1) 11/11/21 10:03 Plt Count 82 10^3/cmm (130-400) L 11/11/21 10:03 MPV 10.6 fL (7.4-10.4) H 11/11/21 10:03 Neut % (Auto) 77.3 % 11/11/21 10:03 Lymph % (Auto) 10.0 % 11/11/21 10:03 [place] % (Auto) 7.7 % 11/11/21 10:03 Eos % (Auto) 0.7 % 11/11/21 10:03 Baso % (Auto) 0.9 % 11/11/21 10:03 Neut # (Auto) 3.39 10^3/uL (1.8-7.7) 11/11/21 10:03 Lymph # (Auto) 0.4 10^3/uL (0.8-4.8) L 11/11/21 10:03 [place] # (Auto) 0.3 10^3/uL (0.2-0.9) 11/11/21 10:03 Eos # (Auto) 0.0 10^3/uL (0.0-0.8) 11/11/21 10:03 Baso # (Auto) 0.0 10^3/uL (0.0-0.1) 11/11/21 10:03 Nucleated RBC % (auto) 0 % 11/11/21 10:03 Nucleated RBCs # 0.0 /100WBC 11/11/21 10:03 Sodium 131 mmol/L (136-145) L 11/11/21 10:03 Potassium 4.3 mmol/L (3.5-5.1) 11/11/21 10:03 Chloride 87 mmol/L (98-107) L 11/11/21 10:03 Carbon Dioxide 24 mmol/L (22-29) 11/11/21 10:03 Anion Gap 24.3 (5-19) H 11/11/21 10:03 BUN 89 mg/dL (8-23) H* 11/11/21 10:03 Creatinine 19.8 mg/dL (0.7-1.2) H* 11/11/21 10:03 GFR Calculation 2.4 mL/min (90-130) L 11/11/21 10:03 Glucose 123 mg/dL (65-115) H 11/11/21 10:03 Calculated Osmolality 301 mOsm/kg (285-295) H 11/11/21 10:03 Calcium 7.7 mg/dL (8.5-10.5) L 11/11/21 10:03 Total Bilirubin 0.6 mg/dL (0.15-1.2) 11/11/21 10:03 AST 44 U/L (0-40) H 11/11/21 10:03 ALT 55 U/L (0-41) H 11/11/21 10:03 Alkaline Phosphatase 138 IU/L (40-130) H 11/11/21 10:03 Total Protein 5.3 g/dL (6.6-8.7) L 11/11/21 10:03 Albumin 3.3 g/dL (3.5-5.2) L 11/11/21 10:03 Globulin 2.0 g/dL (1.3-4.6) 11/11/21 10:03 Discharge Plan Discharge Patient Disposition: Home Clinical Impression: Goodpasture's disease, Chronic kidney disease, Chronic hypertension Condition: Stable Prescriptions: Continued colchicine 0.6 mg tablet See Rx Instructions PO BID 0RF Rx Instructions: 2tabs as first daily dose, then 1tab 1 hour later Children's Flonase Sensimist 27.5 mcg/actuation spray,suspension 2 spray intranasal DAILY Qty: 5.9 3RF Rx Instructions: into each nostril carvedilol 25 mg tablet 25 mg PO BID 0RF Rx Instructions: must administer with a meal/food sevelamer carbonate [Renvela] 800 mg tablet 1,600 mg PO TID 0RF Rx Instructions: must administer with a meal/food Dialyvite 800 with Zinc 15 0.8-15 mg tablet 1 tab PO DAILY 0RF neomycin-polymyxin B-dexameth 3.5 mg/g-10,000 unit/g-0.1 % ointment 1 applic ophthalmic (eye) ONCE 0RF Rx Instructions: space evenly during waking hours minoxidil 10 mg tablet 5 mg PO BID 0RF levothyroxine [Synthroid] 75 mcg tablet 75 mcg PO DAILY Qty: 30 2RF ondansetron 4 mg film 4 mg PO DAILY PRN (Reason: nausea and vomiting) Qty: 15 0RF pantoprazole 40 mg tablet,delayed release (DR/EC) 40 mg PO DAILY 0RF Dialyvite [id number] el-ud-dhw-mg tablet 1 tab PO DAILY 0RF losartan 50 mg tablet 25 mg PO BID 0RF Changed amlodipine 10 mg tablet 5 mg PO DAILY Qty: 0 0RF Discharge Orders: Discharge ED (Routine); Ordered 11/11/21 Ordered By: Edward Guevara Referrals: Bob Peñaloza MD [Primary Care Provider] - Discharge Diet: Usual diet Discharge Activity: Resume usual activity Patient Instructions: Opioid Safety Activity Restrictions/Additional Instructions: Continue all medications with the exception of amlodipine which as we discussed we will have you decrease to 5 mg daily. Monitor his blood pressure at home. As long as he feels fine and his top or systolic blood pressure is greater than 90 continue as is. If you have any concerns return to the emergency department at any time. Coding Level of Care Code ED Piping Design Specialist for Candy Fwobey Exam Comprehensive
[2021-11-11 11:04] LABS: Basophils % 0.9 %; Eosinophils % 0.7 %; Hematocrit 33.8 % (42.0-52.0); Hemoglobin 11.6 g/dL (11.7-16.6); Lymphocytes # 0.4 10^3/uL (0.8-4.8); Mean Corpuscular HGB Conc 34.3 g/dL (30.0-36.0); Mean Corpuscular Hemoglobin 30.6 pg (28.0-34.0); Mean Corpuscular Volume 89.2 fl (80-94); Mean Platelet Volume 10.6 fL (7.4-10.4); Monocytes # 0.3 10^3/uL (0.2-0.9); Monocytes % 7.7 %; Neutrophils # 3.39 10^3/uL (1.8-7.7); Neutrophils % 77.3 %; Nucleated Red Blood Cells % 0 %; Platelet Count 82 10^3/cmm (130-400); Red Blood Count 3.79 10^6/uL (4.1-5.3); Red Cell Distribution Width 13.8 % (12.1-15.1); White Blood Count 4.4 10^3/uL (4.0-10.0)
[2021-11-11] MEDS: sodium chloride 0.9% 500 ML IV (11:06)
[2021-11-11 11:23] LABS: Alanine Aminotransferase 55 U/L (0-41); Albumin Level 3.3 g/dL (3.5-5.2); Alkaline Phosphatase 138 IU/L (40-130); Anion Gap 24.3 (5-19); Aspartate Amino Transferase 44 U/L (0-40); Calcium 7.7 mg/dL (8.5-10.5); Carbon Dioxide 24 mmol/L (22-29); Chloride 87 mmol/L (98-107); Glomerular Filtration Rate 2.4 mL/min (90-130); Glucose 123 mg/dL (65-115); Osmolality Calculated 301 mOsm/kg (285-295); Potassium 4.3 mmol/L (3.5-5.1); Sodium 131 mmol/L (136-145); Total Bilirubin 0.6 mg/dL (0.15-1.2); Total Protein 5.3 g/dL (6.6-8.7)
[2021-11-11 11:24] LABS: Blood Urea Nitrogen 89 mg/dL (8-23)
[2021-11-11 11:36] LABS: Slide Review Slide Review Perform
[2021-11-11 11:54] VITALS: BP 84/43; PULSE 80; RESP 15; O2SAT 94
[2021-11-11 12:54] VITALS: BP 80/56; PULSE 76; RESP 16; O2SAT 95
[2021-11-11 13:41] VITALS: BP 91/50; PULSE 81; RESP 16; O2SAT 93
== END 2021-11-11 13:44 | disposition home or self-care (01) ==
PROVIDERS: Emergency Provider Emergency Medicine; PCP Family Medicine
DX: M31.0 Hypersensitivity angiitis (principal); I12.0 Hypertensive chronic kidney disease with stage 5 chronic kidney disease or end stage renal disease; N18.6 End stage renal disease; Z99.2 Dependence on renal dialysis; R06.02 Shortness of breath; D64.9 Anemia, unspecified; M10.9 Gout, unspecified; E87.2 Acidosis; N17.9 Acute kidney failure, unspecified
CPT/HCPCS: 80053; 85025; 93005; 96360; 99284; J7040

== ENCOUNTER 2021-11-13 15:00 | Inpatient (IN) | payer MEDICARE, SELFPAY ==
[2021-11-13] VITALS (25 sets, daily range): BP systolic 79–107; BP diastolic 38–58; PULSE 67–91; RESP 7–20; TEMP 36.7–36.8; O2SAT 86–98; BMI 23.8
--- NOTE | 2021-11-13 15:43 | CTR_ITS ---
PROCEDURE INFORMATION: Exam: CT Head Without Contrast Exam date and time: 11/13/2021 4:08 PM Age: 65 years old Clinical indication: Injury or trauma; Fall; Blunt trauma (contusions or hematomas) TECHNIQUE: Imaging protocol: Computed tomography of the head without contrast. Radiation optimization: All CT scans at this facility use at least one of these dose optimization techniques: automated exposure control; mA and/or kV adjustment per patient size (includes targeted exams where dose is matched to clinical indication); or iterative reconstruction. COMPARISON: CR XR cervical spine min 6V [id number] 05/21/2020 10:59 AM RADIATION DOSE METRICS: Total DLP (mGy-cm): 868.98 FINDINGS: Brain: There is an old right thalamic lacunar infarct. No acute infarct. No hemorrhage or extra-axial collection. There is no mass. Cerebral ventricles: No ventriculomegaly. Paranasal sinuses: Visualized sinuses are unremarkable. No fluid levels. Mastoid air cells: Visualized mastoid air cells are well aerated. Bones/joints: Unremarkable. No acute fracture. Soft tissues: Unremarkable. CT/CT head wo con* [id number] IMPRESSION: 1. Old right thalamic lacunar infarct. 2. No acute intracranial injury or lesion.
--- NOTE | 2021-11-13 15:43 | CTR_ITS ---
PROCEDURE INFORMATION: Exam: CT Cervical Spine Without Contrast Exam date and time: 11/13/2021 4:11 PM Age: 65 years old Clinical indication: Injury or trauma; Fall; Blunt trauma TECHNIQUE: Imaging protocol: Computed tomography images of the cervical spine without contrast. Radiation optimization: All CT scans at this facility use at least one of these dose optimization techniques: automated exposure control; mA and/or kV adjustment per patient size (includes targeted exams where dose is matched to clinical indication); or iterative reconstruction. COMPARISON: CR XR cervical spine min 6V [id number] 05/21/2020 10:59 AM RADIATION DOSE METRICS: Total DLP (mGy-cm): 572.95 FINDINGS: Bones/joints: There is no fracture. Vertebral bodies maintain their height. There is no fracture of the posterior elements. There is no focal osseous lesion. Discs/Spinal canal/Neural foramina: There is spondylosis and disc space narrowing from C3-C4 to C6-C7 with small posterior osteophytes and disc bulges resulting in mild segmental central spinal stenosis at these levels. There is foraminal stenosis at the same levels most severe on the right at C4-C5, C5-C6 and bilaterally at C6-C7. Lungs: Lung apices are normal. Soft tissues: Unremarkable. CT/CT cervical spin wo con* [id number] IMPRESSION: No fracture of the cervical spine
--- NOTE | 2021-11-13 15:43 | ECG_ITS ---
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 Measurements Intervals [place] Rate: 69 P: 36 RI: 159 QRS: 55 QRSD: 94 T: 73 QT: 400 QTc: 431 Interpretive Statements SINUS RHYTHM MINIMAL ST DEPRESSION [0.025+ mV ST DEPRESSION] Compared to ECG 11/11/2021 11:03:03 ST (T wave) deviation now present Electronically Signed On 11-13-2021 20:24:39 CDT by Justin Kapadia M.D. [id number]
--- NOTE | 2021-11-13 15:44 | W.ED.GENADLT ---
HPI - General Adult General: Chief complaint: General Medical Stated complaint: Faint, low BP, Fall on 11/12 Time Seen by Provider: 11/13/21 15:36 History of Present Illness: 65-year-old presents due to headache and neck pain after fall yesterday. States he slipped while taking his dog out. However he was here 2 days ago and was noted to be mildly hypotensive. His amlodipine dose was decreased. Denies any lightheadedness however. Denies any focal numbness weakness or tingling. Denies any chest pain or palpitations. Denies loss of consciousness. Review of Systems Narrative: - CONSTITUTIONAL: Denies weight loss, fever and chills. - HEENT: Denies changes in vision and hearing. - RESPIRATORY: Denies SOB and cough. - CV: Denies palpitations and CP. - GI: Denies abdominal pain, nausea, vomiting and diarrhea. - : Denies dysuria and urinary frequency. - MSK: Denies myalgia and joint pain. - SKIN: Denies rash and pruritus. - NEUROLOGICAL: As above - PSYCHIATRIC: Denies suicidal ideation PFSH ED PFSH: Medical History Acute kidney injury Anemia Gout Metabolic acidosis Surgical History H/O left inguinal hernia repair Laparoscopic extraperitoneal History of circumcision History of peritoneal dialysis Normal colonoscopy 03/2007 S/P hemodialysis catheter insertion Removed 12/24/2020 Family History Brother Cancer Prostate Other Osteoarthritis Osteoporosis Denies family history of Anesthesia complication Bleeding disorder Social History Smoking and tobacco status: never smoked Alcohol intake: current Alcohol intake frequency: holidays/special occasions only Lives independently: Yes Household members: spouse Marital status: Current occupational status: employed Physical Exam Narrative: EXAM NARRATIVE: - GENERAL: Alert and oriented x 3. No acute distress. Well-nourished. - EYES: EOMI. Anicteric. - HENT: Atraumatic, no C-spine tenderness. Moist mucous membranes. No scleral icterus. No cervical lymphadenopathy. - LUNGS: Clear to auscultation bilaterally. No accessory muscle use. Equal lung sounds bilaterally. No respiratory distress. - CARDIOVASCULAR: Regular rate and rhythm. No murmur. No JVD. - ABDOMEN: Soft, non-tender and non-distended. Negative CVA tenderness bilaterally, no rebound or guarding, negative Lema sign. No palpable masses. - EXTREMITIES: No edema. Non-tender. - SKIN: No rashes or lesions. Warm. - NEUROLOGIC: No meningismus or focal neurological deficits. CN II-XII grossly intact. - PSYCHIATRIC: Cooperative. Appropriate mood and affect. Course Vital Signs: Vital signs: Vital Signs Temperature 98.2 F 11/13/21 15:49 Pulse Rate 79 11/13/21 18:35 Respiratory Rate 18 11/13/21 18:35 Blood Pressure 107/49 11/13/21 18:35 Pulse Oximetry 96 11/13/21 18:35 MDM - General Adult Medical Decision Making 65-year-old who is on peritoneal dialysis presents due to low blood pressure. Denies any focal pain. Does report recent fall and head injury but CT scan of the head and C-spine does not reveal any intracranial hemorrhage fracture or dislocation. Remainder of lab work unremarkable except for elevated creatinine. Does not have an elevated white count. He is afebrile. However patient continues to be hypotensive despite IV fluids. Started on Levophed drip. Remainder of lab work and imaging reviewed. Discussed with hospitalist and they agreed patient would benefit from admission. Patient admitted in stable condition. Further evaluation management per hospitalist team. Lab Data : 11/13/21 15:45 11/13/21 15:45 Radiology Impressions Cervical Spine CT 11/13/21 15:43 IMPRESSION: No fracture of the cervical spine Head CT 11/13/21 15:43 IMPRESSION: 1. Old right thalamic lacunar infarct. 2. No acute intracranial injury or lesion. Chest X-Ray 11/13/21 18:13 IMPRESSION: No acute findings. Laboratory Results WBC 4.2 10^3/uL (4.0-10.0) 11/13/21 15:45 RBC 3.26 10^6/uL (4.1-5.3) L 11/13/21 15:45 Hgb 10.3 g/dL (11.7-16.6) L 11/13/21 15:45 Hct 27.9 % (42.0-52.0) L 11/13/21 15:45 MCV 85.6 fl (80-94) 11/13/21 15:45 MCH 31.6 pg (28.0-34.0) 11/13/21 15:45 MCHC 36.9 g/dL (30.0-36.0) H 11/13/21 15:45 RDW 13.9 % (12.1-15.1) 11/13/21 15:45 Plt Count 65 10^3/cmm (130-400) L 11/13/21 15:45 MPV 11.6 fL (7.4-10.4) H 11/13/21 15:45 Neut % (Auto) 70.4 % 11/13/21 15:45 Lymph % (Auto) 18.7 % 11/13/21 15:45 [place] % (Auto) 7.8 % 11/13/21 15:45 Eos % (Auto) 1.2 % 11/13/21 15:45 Baso % (Auto) 0.2 % 11/13/21 15:45 Neut # (Auto) 2.98 10^3/uL (1.8-7.7) 11/13/21 15:45 Lymph # (Auto) 0.8 10^3/uL (0.8-4.8) 11/13/21 15:45 [place] # (Auto) 0.3 10^3/uL (0.2-0.9) 11/13/21 15:45 Eos # (Auto) 0.1 10^3/uL (0.0-0.8) 11/13/21 15:45 Baso # (Auto) 0.0 10^3/uL (0.0-0.1) 11/13/21 15:45 Nucleated RBC % (auto) 0 % 11/13/21 15:45 Nucleated RBCs # 0.0 /100WBC 11/13/21 15:45 Sodium 129 mmol/L (136-145) L 11/13/21 15:45 Potassium 3.9 mmol/L (3.5-5.1) 11/13/21 15:45 Chloride 84 mmol/L (98-107) L 11/13/21 15:45 Carbon Dioxide 24 mmol/L (22-29) 11/13/21 15:45 Anion Gap 24.9 (5-19) H 11/13/21 15:45 BUN 114 mg/dL (8-23) H* 11/13/21 15:45 Creatinine 21.1 mg/dL (0.7-1.2) H* 11/13/21 15:45 GFR Calculation 2.2 mL/min (90-130) L 11/13/21 15:45 Glucose 134 mg/dL (65-115) H 11/13/21 15:45 Calculated Osmolality 306 mOsm/kg (285-295) H 11/13/21 15:45 Lactate 0.6 mmol/L (0.5-2.2) 11/13/21 18:20 Calcium 7.3 mg/dL (8.5-10.5) L 11/13/21 15:45 Total Bilirubin 0.5 mg/dL (0.15-1.2) 11/13/21 15:45 AST 39 U/L (0-40) 11/13/21 15:45 ALT 55 U/L (0-41) H 11/13/21 15:45 Alkaline Phosphatase 133 IU/L (40-130) H 11/13/21 15:45 Troponin T Baseline 99 ng/L (0-15) H 11/13/21 15:45 Troponin T 120 Minute 81.99 ng/L (0-15) H 11/13/21 18:20 Delta Troponin T -17.01 ABS# (0-10) L 11/13/21 18:20 NT-Pro-B Natriuret Pep 2643 pg/mL (0-125) H 11/13/21 15:45 Total Protein 5.2 g/dL (6.6-8.7) L 11/13/21 15:45 Albumin 3.0 g/dL (3.5-5.2) L 11/13/21 15:45 Globulin 2.2 g/dL (1.3-4.6) 11/13/21 15:45 TSH 12.12 uIU/mL (0.27-4.20) H 11/13/21 15:45 Free T4 0.90 ng/dL (0.82-1.77) 11/13/21 15:45 SARS-CoV-2 Ag (Rapid) Negative (Negative) 11/13/21 18:25 EKG Data EKG 1: Computer generated interpretation: Cervical Spine CT 11/13/21 15:43 IMPRESSION: No fracture of the cervical spine Head CT 11/13/21 15:43 IMPRESSION: 1. Old right thalamic lacunar infarct. 2. No acute intracranial injury or lesion. Chest X-Ray 11/13/21 18:13 IMPRESSION: No acute findings. Other EKG comments: Sinus rhythm, rate of 69, no sign of acute ischemia or other acute abnormality. Critical Care Time Critical Care Time: Critical Care Time: Yes Total Critical Care Time: 30 Attestation: This case had a high probability of a clinically significant, sudden, or life threatening deterioration of this patient's condition which required my full and direct attention, intervention and personal management. Discharge Plan Discharge Condition: Stable Prescriptions: No Action colchicine 0.6 mg tablet See Rx Instructions PO BID PRN (Reason: gout) 0RF Rx Instructions: 2tabs as first daily dose, then 1tab 1 hour later carvedilol 25 mg tablet 25 mg PO BID 0RF Rx Instructions: must administer with a meal/food sevelamer carbonate [Renvela] 800 mg tablet 1,600 mg PO TID 0RF Rx Instructions: must administer with a meal/food Dialyvite 800 with Zinc 15 0.8-15 mg tablet 1 tab PO DAILY 0RF neomycin-polymyxin B-dexameth 3.5 mg/g-10,000 unit/g-0.1 % ointment 1 applic ophthalmic (eye) ONCE 0RF Rx Instructions: space evenly during waking hours minoxidil 10 mg tablet 5 mg PO BID 0RF levothyroxine [Synthroid] 75 mcg tablet 75 mcg PO DAILY Qty: 30 2RF ondansetron 4 mg film 4 mg PO DAILY PRN (Reason: nausea and vomiting) Qty: 15 0RF pantoprazole 40 mg tablet,delayed release (DR/EC) 40 mg PO DAILY 0RF losartan 50 mg tablet 25 mg PO BID 0RF amlodipine 10 mg tablet 5 mg PO DAILY Qty: 0 0RF Vitamin B-6 100 mg Tablet 100 mg PO DAILY 0RF fluticasone propionate 50 mcg/actuation [place],Suspension 1 spray INTRANASAL DAILY PRN (Reason: Nasal Congestion) 0RF Rx Instructions: administer into each nostril Referrals: Bob Peñaloza MD [Primary Care Provider] - Coding Level of Care Code ED Development Analyst for Chg Vasyl
[2021-11-13] MEDS: sodium chloride 0.9% 500 ML 999 ML IV (15:57)
[2021-11-13 16:04] LABS: Basophils % 0.2 %; Eosinophils # 0.1 10^3/uL (0.0-0.8); Eosinophils % 1.2 %; Hematocrit 27.9 % (42.0-52.0); Hemoglobin 10.3 g/dL (11.7-16.6); Lymphocytes # 0.8 10^3/uL (0.8-4.8); Lymphocytes % 18.7 %; Mean Corpuscular HGB Conc 36.9 g/dL (30.0-36.0); Mean Corpuscular Hemoglobin 31.6 pg (28.0-34.0); Mean Corpuscular Volume 85.6 fl (80-94); Mean Platelet Volume 11.6 fL (7.4-10.4); Monocytes # 0.3 10^3/uL (0.2-0.9); Monocytes % 7.8 %; Neutrophils # 2.98 10^3/uL (1.8-7.7); Neutrophils % 70.4 %; Nucleated Red Blood Cells % 0 %; Platelet Count 65 10^3/cmm (130-400); Red Blood Count 3.26 10^6/uL (4.1-5.3); Red Cell Distribution Width 13.9 % (12.1-15.1); White Blood Count 4.2 10^3/uL (4.0-10.0)
[2021-11-13 16:20] LABS: Alanine Aminotransferase 55 U/L (0-41); Alkaline Phosphatase 133 IU/L (40-130); Anion Gap 24.9 (5-19); Aspartate Amino Transferase 39 U/L (0-40); Calcium 7.3 mg/dL (8.5-10.5); Carbon Dioxide 24 mmol/L (22-29); Chloride 84 mmol/L (98-107); Globulin 2.2 g/dL (1.3-4.6); Glomerular Filtration Rate 2.2 mL/min (90-130); Glucose 134 mg/dL (65-115); Potassium 3.9 mmol/L (3.5-5.1); Sodium 129 mmol/L (136-145); Total Bilirubin 0.5 mg/dL (0.15-1.2); Total Protein 5.2 g/dL (6.6-8.7)
[2021-11-13 16:28] LABS: Slide Review Slide Review Perform
[2021-11-13 16:41] LABS: Osmolality Calculated 306 mOsm/kg (285-295)
[2021-11-13 16:43] LABS: Blood Urea Nitrogen 114 mg/dL (8-23)
[2021-11-13] MEDS: sodium chloride 0.9% 1,000 ML 999 ML IV (16:59)
--- NOTE | 2021-11-13 18:13 | XRR_ITS ---
PROCEDURE INFORMATION: Exam: XR Chest Exam date and time: 11/13/2021 6:34 PM Age: 65 years old Clinical indication: Dyspnea; Additional info: Hypotension TECHNIQUE: Imaging protocol: XR of the chest. Views: 1 view. COMPARISON: CR (CHEST, ) 02/20/2021 7:06 PM FINDINGS: Lungs: Unremarkable. No consolidation. Pleural spaces: Unremarkable. No pleural effusion. No pneumothorax. Heart/Mediastinum: Unremarkable. No cardiomegaly. Bones/joints: Unremarkable. XR/XR chest 1V portable [id number] IMPRESSION: No acute findings.
--- NOTE | 2021-11-13 18:14 | ECG_ITS ---
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 Measurements Intervals [place] Rate: 75 P: 46 [place]: 171 QRS: 46 QRSD: 95 T: 66 QT: 392 QTc: 441 Interpretive Statements SINUS RHYTHM Compared to ECG 11/13/2021 15:48:57 ST (T wave) deviation no longer present Electronically Signed On 11-13-2021 20:23:16 CDT by Justin Kapadia M.D. [email or web address] Remedywex[email or web address]/store/[id number]
[2021-11-13 18:41] LABS: Troponin(5th) Baseline 99 ng/L (0-15)
[2021-11-13 18:51] LABS: Troponin 5 2HR 81.99 ng/L (0-15)
[2021-11-13 18:52] LABS: Lactate (Lactic Acid level) 0.6 mmol/L (0.5-2.2)
[2021-11-13 18:54] LABS: NT Pro B Type Natriuretic Pept 2643 pg/mL (0-125); Thyroid Stimulating Hormone 12.12 uIU/mL (0.27-4.20)
[2021-11-13 19:05] LABS: SARS Covid-2 Antigen Negative (Negative)
--- NOTE | 2021-11-13 20:10 | ECG_ITS ---
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 Measurements Intervals [place] Rate: 73 P: 68 MT: 164 QRS: 58 QRSD: 97 T: 70 QT: 393 QTc: 433 Interpretive Statements SINUS RHYTHM Compared to ECG 11/13/2021 18:40:24 No significant changes Electronically Signed On 11-14-2021 19:42:48 CDT by Justin Kapadia M.D. [id number]
--- NOTE | 2021-11-13 20:11 | P.HP_ITS ---
Providers/Chief Complaint Admitting Physician: Amos Daly DO Primary Care Provider: Bob Peñaloza MD Chief Complaint: Faint, low BP, Fall on 11/12 History of Present Illness Patient is a [age]-year-old male who presents chief complaint of generalized weakness which started possibly 1 week prior to hospitalization. He indicates that he sustained a fall approximately 24 hours prior to hospitalization due to slipping. He denies fever, rigors, nausea, vomiting, cough, wheeze, abdominal pain, diarrhea, myalgia, chest pain, dyspnea. Patient has known history of end- stage renal disease for which he performs peritoneal dialysis at home. He presents for further evaluation Review of Systems General: Reports: 10 or more systems reviewed and unremarkable except in HPI and below Medications/Allergies Home Medications Medication Instructions Recorded Confirmed Last Taken Type ondansetron 4 mg oral soluble film 4 mg PO DAILY PRN #15 each 02/20/21 11/13/21 03/03/21 Rx pantoprazole 40 mg tablet,delayed 40 mg PO DAILY 03/02/21 11/13/21 11/13/21 History release carvedilol 25 mg tablet 25 mg PO BID 07/28/21 11/13/21 11/13/21 History sevelamer carbonate 800 mg tablet 1,600 mg PO TID tab 07/28/21 11/13/21 11/13/21 History (Renvela) vitamin B complex with C-folic 1 tab PO DAILY 07/28/21 11/13/21 11/13/21 History acid 0.8 mg-zinc citrate 15 mg tablet (Dialyvite 800 with Zinc 15) neomycin 3.5 mg/g-polymyxin B 1 applic OPHTHALMIC (EYE) ONCE g 08/17/21 11/13/21 Unknown History 10,000 unit/g-dexameth 0.1 % eye oint colchicine 0.6 mg tablet See Rx Instructions PO BID PRN 09/13/21 11/13/21 Unknown History Synthroid 75 mcg tablet 75 mcg PO DAILY #30 tab NS 10/20/21 11/13/21 11/13/21 Rx (levothyroxine) amlodipine 10 mg tablet 5 mg PO DAILY #0 tab 11/11/21 11/13/21 11/13/21 Rx losartan 50 mg tablet 25 mg PO BID tab 11/11/21 11/13/21 11/13/21 History minoxidil 10 mg tablet 5 mg PO BID tab 11/11/21 11/13/21 11/13/21 History fluticasone propionate 50 1 spray INTRANASAL DAILY PRN 11/13/21 11/13/21 Unknown History mcg/actuation nasal spray,suspension pyridoxine (vitamin B6) 100 mg 100 mg PO DAILY 11/13/21 11/13/21 11/13/21 History tablet (Vitamin B-6) Allergies Allergy/AdvReac Type Severity Reaction Status Date / Time heparin Allergy Burnt out Verified 11/11/21 09:43 platelets Penicillins AdvReac I just Verified 11/11/21 09:43 did not feel good PFSH Acute PFSH: Medical History Acute kidney injury Anemia Gout Metabolic acidosis Surgical History H/O left inguinal hernia repair Laparoscopic extraperitoneal History of circumcision History of peritoneal dialysis Normal colonoscopy 03/2007 S/P hemodialysis catheter insertion Removed 12/24/2020 Family History Brother Cancer Prostate Other Osteoarthritis Osteoporosis Denies family history of Anesthesia complication Bleeding disorder Social History Smoking and tobacco status: never smoked Alcohol intake: current Alcohol intake frequency: holidays/special occasions only Lives independently: Yes Household members: spouse Marital status: Current occupational status: employed Vitals/I&O/Wt Last Vital Signs Temp 98.2 F 11/13/21 15:49 Pulse 77 11/13/21 19:39 Resp 20 H 11/13/21 19:39 BP 106/58 11/13/21 19:39 Pulse Ox 98 11/13/21 19:39 Weight last 48 hrs Weight 67.132 kg Physical Exam Narrative: General: -Alert -No acute distress -No dyspnea -No tachypnea Head: -Atraumatic -Normocephalic Eyes: -Pupils equally round and reactive to light and accommodation -Extraocular muscles intact Neurological: -Cranial nerves II-XII intact Neck: -No jugular venous distention -No thyromegaly -No cervical lymphadenopathy Heart: -Regular rate -Regular rhythm -No murmurs -No gallops -No rubs Lungs: -No wheeze -No rhonchi -No rales ? Abdomen: -Normal bowel sounds in all four quadrants -No rebound -No guarding -No tenderness Extremities: -2/4 pulse in all four extremities -No clubbing -No cyanosis -No edema -No calf tenderness present bilaterally -Negative Danis?s sign bilaterally Musculoskeletal: -5/5 bilateral upper extremity strength -5/5 bilateral lower extremity strength -Sensorium of bilateral upper extremities are equal and intact -Sensorium of bilateral lower extremities are equal and intact ? Additional Details / Additional Findings / Exceptions / Miscellaneous: Data : 11/13/21 15:45 11/13/21 15:45 A&P Assessment and plan (1) Chronic kidney disease: Status: Acute Plan Hypertension. Uncertain etiology. This may be due to fluid imbalance due to patient's end-stage renal disease for which he performed peritoneal dialysis at home. Blood culture ?2 pending. Chest x-ray unremarkable.IV normal saline at 75 ML's per hour plus IV Levophed drip per protocol Hyponatremia. We will monitor sodium level intermittently. IV normal saline 75 ML's per hour End stage renal disease due to [place]past[place] syndrome for which the patient's peritoneal dialysis dependent. Will monitor serum electrolytes periodically. We may consider nephrology consultation on the morning of November 15, 2019 Restless leg syndrome Hypothyroidism Elevated troponin. Patient provides no symptoms of ACS. This may be a false elevation due to end-stage renal disease for which the patient's peritoneal dialysis dependent. Will monitor patient on telemetry and checks her cardiac enzymes. We will recheck EKG on the morning of November 14 2 one-point Seasonal allergies Gout Anemia, chronic. Will monitor hemoglobin level intermittently. Check serum ferritin, iron panel, fecal occult blood GERD Hypertriglyceridemia History of hypertension Number cytopenia. We will monitor platelet count intermittently Of the liver function test. This may be a sequelae of the patient's fall with resultant rhabdomyolysis. Monitor LFTs periodically with CMP along with PT/INR. Creatine kinase level pending. IV normal saline at 75 ML's per hour. If we see no improvement/normalization, we may consider hepatitis panel and right upper quadrant ultrasound Hypocalcemia. Minimally elevated. Will monitor calcium level intermittently and supplement as necessary History of hyperparathyroidism. PTH level pending History of CVA Hepatic steatosis DVT Proflex is. Bilateral SCD Attestations Medical Necessity Statement*: The patient's anticipate length of stay is greater than 2 midnights for evaluation/treatment of his hypotension Coding Level of Care Code Acute Lime Kiln And Recausticizing Operator for Chg Fwd Diagnoses Chronic kidney disease N18.9
[2021-11-13] MEDS: sodium chloride 0.9% 1,000 ML 75 ML IV (21:02)
[2021-11-13 23:08] LABS: Iron 122 ug/dL (59-158)
[2021-11-13 23:10] LABS: Troponin 5 6HR 83.11 ng/L (0-15)
[2021-11-13 23:12] LABS: Calcium 6.6 mg/dL (8.5-10.5)
[2021-11-13 23:17] LABS: Parathyroid Hormone 315.6 pg/mL (15-65)
[2021-11-13 23:23] LABS: Troponin 5 6HR Delta -15.89 ng/L (0-12)
[2021-11-14] VITALS (178 sets, daily range): BP systolic 76–127; BP diastolic 36–79; PULSE 65–90; RESP 14; TEMP 36.8–36.9; O2SAT 87–97
[2021-11-14 01:32] LABS: Ferritin 13666 ng/mL (30-400)
--- NOTE | 2021-11-14 02:10 | ECG_ITS ---
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 Measurements Intervals [place] Rate: 75 P: 54 [place]: 174 QRS: 53 QRSD: 98 T: 68 QT: 388 QTc: 435 Interpretive Statements SINUS RHYTHM Compared to ECG 11/13/2021 20:42:54 No significant changes Electronically Signed On 11-14-2021 19:44:21 CDT by Justin Kapadia M.D. [id number]
[2021-11-14 04:53] LABS: Basophils % 0.4 %; Eosinophils # 0.1 10^3/uL (0.0-0.8); Eosinophils % 2.6 %; Hematocrit 26.1 % (42.0-52.0); Hemoglobin 9.5 g/dL (11.7-16.6); Mean Corpuscular HGB Conc 36.4 g/dL (30.0-36.0); Mean Corpuscular Volume 85.3 fl (80-94); Mean Platelet Volume 11.3 fL (7.4-10.4); Monocytes # 0.3 10^3/uL (0.2-0.9); Monocytes % 5.4 %; Neutrophils # 3.85 10^3/uL (1.8-7.7); Neutrophils % 72.1 %; Nucleated Red Blood Cells % 0 %; Platelet Count 63 10^3/cmm (130-400); Red Blood Count 3.06 10^6/uL (4.1-5.3); Red Cell Distribution Width 13.9 % (12.1-15.1); White Blood Count 5.3 10^3/uL (4.0-10.0)
[2021-11-14 05:13] LABS: Alanine Aminotransferase 50 U/L (0-41); Albumin Level 2.6 g/dL (3.5-5.2); Alkaline Phosphatase 123 IU/L (40-130); Anion Gap 22.8 (5-19); Aspartate Amino Transferase 33 U/L (0-40); Calcium 6.6 mg/dL (8.5-10.5); Carbon Dioxide 20 mmol/L (22-29); Chloride 88 mmol/L (98-107); Globulin 1.9 g/dL (1.3-4.6); Glomerular Filtration Rate 2.3 mL/min (90-130); Glucose 120 mg/dL (65-115); Magnesium 2.1 mg/dL (1.7-2.3); Phosphorus 6.7 mg/dL (2.5-4.5); Potassium 3.8 mmol/L (3.5-5.1); Sodium 127 mmol/L (136-145); Total Bilirubin 0.4 mg/dL (0.15-1.2); Total Protein 4.5 g/dL (6.6-8.7)
[2021-11-14 05:17] LABS: Slide Review Slide Review Perform
[2021-11-14 05:23] LABS: Blood Urea Nitrogen 120 mg/dL (8-23); Osmolality Calculated 304 mOsm/kg (285-295)
--- NOTE | 2021-11-14 07:58 | USCV_ITS ---
Mikey Godinez Age: 65 Gender: M : 1955 Exam Date: 11/14/2021 08:36 Ordering Phys: Essence Wong MD Technologist: Cruz Smith [place] [facility] [place] BP: 112 / 61 HR: 71 Rhythm: Sinus Technical Quality: Adequate MEASUREMENTS (Male / Female) Normal Values 2D ECHO LV Diastolic Diameter PLAX 4.5 cm 4.2 - 5.9 / 3.9 - 5.3 cm LV Systolic Diameter PLAX 3.0 cm IVS Diastolic Thickness 0.9 cm 0.6 - 1.0 / 0.6 - 0.9 cm IVS Systolic Thickness 1.5 cm LVPW Diastolic Thickness 1.2 cm 0.6 - 1.0 / 0.6 - 0.9 cm LVPW Systolic Thickness 1.7 cm LVOT Diameter 2.0 cm LV Ejection Fraction 2D Teich 63.2 % LV Ejection Fraction MOD 2C 62.5 % LV Ejection Fraction 2C AL 62.8 % LA Diameter 3.8 cm LA Width 3.9 cm LA Height 3.8 cm RA Width 3.8 cm RA Height 4.4 cm Aorta at Sinotubular Diameter 2.5 cm IVC Diameter 1.8 cm M-MODE Aortic Annulus Diameter 2.8 cm LA Ao Ratio MM 1.3 MV E Point Septal Separation 0.6 cm DOPPLER AV Peak Velocity 181.0 cm/s LVOT Peak Velocity 66.0 cm/s AV Area Cont Eq vti 1.4 cm squared AV Area Cont Eq pk 1.2 cm squared MV Peak Velocity 103.0 cm/s MV Area PHT 3.7 cm squared Mitral E to A Ratio 0.8 MV E' Velocity 40.5 cm/s Mitral E to MV E' Ratio 6.4 Mitral E to LV E' Lateral Ratio 6.2 Mitral E to LV E' Septal Ratio 6.7 TR Peak Velocity 235.0 cm/s TR Peak Gradient 22.1 mmHg TR Mean Velocity 141.2 cm/s TR Mean Gradient 8.5 mmHg TR Velocity Time Integral 37.1 cm Right Atrial Pressure 3.0 mmHg Pulmonary Artery Systolic Pressu 25.1 mmHg RV Acceleration Time 0.1 s RV Ejection Time 0.3 s RV AcT/ET 0.4 FINDINGS Left Ventricle Normal left ventricular size. LV systolic function is normal with EF of 55-60%. No regional wall motion abnormalities. Grade 1 diastolic dysfunction Right Ventricle The right ventricle is normal in size and function. Right Atrium The right atrium is normal in size. Left Atrium The left atrium is normal in size. Mitral Valve Mild mitral annular calcification without significant stenosis or prolapse. There is mild mitral regurgitation. Aortic Valve Structurally normal aortic valve without significant sclerosis or stenosis. There is no aortic regurgitation. Tricuspid Valve Structurally normal tricuspid valve without significant stenosis. Mild tricuspid regurgitation. Pulmonary artery systolic pressure is normal. Pulmonic Valve There is mild pulmonic regurgitation. Pericardium Normal pericardium without effusion. Aorta Normal ascending aorta dimension. IVC CONCLUSIONS LV systolic function is normal with EF 55 to 60%. Grade 1 diastolic dysfunction. Mild mitral regurgitation. Mild mitral annular calcification. Mild tricuspid regurgitation. No comparison studies are available Justin Kapadia MD (Electronically Signed) Final Date: 14 Nov 2021 14:08 S
[2021-11-14] MEDS: midodrine 5 mg TABLET PO ×3 (08:08→21:28)
[2021-11-14] MEDS: sodium chloride 0.9% 1,000 ML 75 ML IV ×2 (08:09→22:37)
[2021-11-14] MEDS: calcium gluconate 0.9% NaCL 1 GM/50 ML PREMIX IV (08:09)
[2021-11-14] MEDS: sevelamer 800 mg Tablet 1600 MG PO (08:09)
[2021-11-14 08:54] LABS: Cortisol Random 10.79 ug/dL (2.47-19.5)
--- NOTE | 2021-11-14 09:09 | PC.CHAP ---
Pastoral Care Encounter/Spiritual Assessment Type of Contact [] Declined pot liner visit [] Patient/Family/Request visit [] Outpatient visit [] Follow-up visit [] Physician referral [] Code/Alert [x] Routine visit [] Staff referral [] Actively dying [] Patient sleeping [] Family support [] [] Out of room [] Palliative care [] [x] Receiving care in room [] Pre-surgical visit [] Trauma [] Long length of stay [x] ICU visit [] Other: Relational/Emotional Strength [] Patient feels connected with others/family/visitors/staff [] Distress [] Loneliness/isolation [] Abandonment Spirituality of Patient [] Person of Yovana [] Attends [employer] of their Yovana [] Believes in Prayer [] Reads Bible or Zoroastrianism materials [] There are Spiritual issues to be addressed Senior Education Specialist Interventions [x] Prayer [] Active listening [] Non-anxious presence [] Spiritual/emotional support [] Crisis/trauma care [] Spiritual counseling [] Bereavement support [] Provided bereavement packet [] Provided Bible/devotional materials [] Provided toy/stuffed animal, coloring book to patient or family member [] Provided Communion [] Anointing/Wister [] Salvation [x] Completed spiritual assessment [] Other: Impact on Illness or Injury [] Angry [] Fearful [] Anxious [] Often cries [] Exhaustion [] Unable to work [] Unable to attend zoroastrianism [] Unable to walk/stand [] Unable to read [] Unable to drive [] Unable to eat/drink [] Unable to sleep [] Unable to be with family [] Patient intubated [] Other: Summary Time spent with patient
--- NOTE | 2021-11-14 11:25 | P.PN_ITS ---
Subjective Subjective: Patient is stating that he did not experience any chest pain, he is compliant with his medications, EKG without significant ischemic or infarctive changes Random cortisol normal Abnormal TSH however free T4 is normal Significant delta troponin likely type II WV? Consulted nephro today for peritoneal dialysis management Currently on levo at 10 mics Fluid sitting at the bedside Requested echo No previous history of WV, coronary artery disease Vitals/I&O/Wt Last Vital Signs Temp 98.5 F 11/14/21 07:30 Pulse 74 11/14/21 10:35 Resp 7 L 11/13/21 19:45 BP 97/56 11/14/21 10:35 Pulse Ox 93 11/14/21 10:35 11/13/21 11/14/21 11/14/21 22:59 06:59 14:59 Intake Total 11.125 / 11.125 146.177 / 956.967 9010.75 / 1257.75 Output Total 0 / 0 0 / 0 Balance 11.125 / 11.125 146.177 / 943.728 8539.75 / 1257.75 Weight last 48 hrs Weight 73.301 kg Weight 67.132 kg Physical Exam Narrative: Patient is comfortable in his bed Eating breakfast Endorsing feeling better Edema, PERRLA Nonfocal neuro exam Saturating well on 2 L nasal cannula No acute respiratory distress Bilateral breath sounds S1, S2 No signs of hypoperfusion, no skin mottling Appropriate mood and affect Data : 11/14/21 04:40 11/14/21 04:40 Micro: Microbiology 11/13/21 22:37 Blood Culture - Preliminary Blood SPECIMEN COLLECTED 11/13/21 22:34 Blood Culture - Preliminary Blood SPECIMEN COLLECTED A&P Assessment and plan (1) Chronic kidney disease: Status: Acute (2) Chronic hypertension: Status: Acute (3) Anemia: Status: Acute (4) History of peritoneal dialysis: Status: Acute (5) Restless leg syndrome: Status: Acute (6) Acquired hypothyroidism: Status: Acute (7) Hyperphosphatemia: Status: Acute (8) Goodpasture's disease: Status: Acute Plan Hypotension No active signs of cardiogenic shock No signs of tension pneumothorax He is not tachycardic No signs of sepsis Echo requested He does have history of hypothyroidism, normal T4 abnormal TSH noted No active chest pain Significant for troponin, type II WV? His hypotension likely related to drug-induced Wean off levo Wean off oxygen to room air Continue IV fluids Added midodrine For peritoneal dialysis management requested nephro consultation To follow-up with Dr. Boyd's recommendations Also have low albumin Good posture related end-stage renal disease follow-up with Dr. Matamoros as well for pulmonary symptoms Anemia of chronic disease without acute exacerbation I will give him 1 bag of albumin as well Attestations Medical Necessity Statement*: De-escalate vasopressors, keep him in ICU for today Time Spent in Patient Care: 30mins Coding Level of Care Code Acute Affirmative Action Specialist for Chg Fwd Diagnoses Chronic kidney disease N18.9 Chronic hypertension I10 Anemia D64.9 History of peritoneal dialysis Z98.890 Restless leg syndrome G25.81 Acquired hypothyroidism E03.9 Hyperphosphatemia E83.39 Goodpasture's disease M31.0
[2021-11-14] MEDS: lactated ringers 500 ML 999 ML IV (11:28)
--- NOTE | 2021-11-14 11:37 | PM.CONSULT ---
Providers/Reason For Consult Consulting Physician/Specialty*: Nephrology Reason for Consult*: ESRD mgmt Attending Physician: Essence Wogn MD Primary Care Provider: Bob Peñaloza MD History of Present Illness History of Present Illness Thank you for consultation, today had the pleasure of reviewing this pleasant 65-year-old gentleman for evaluation of end-stage renal disease and peritoneal dialysis management. He presents with weakness, he has not been eating or drinking very well over the last 1 week without a clear etiology as to why. On arrival he was found to be profoundly hypotensive and was subsequently transferred to the ICU to be initiated on vasopressor agents. He reports that he is roughly 10 pounds below his regular dry weight. He is on PD and has been doing PD for roughly 1 year, prior to which she was on hemodialysis for roughly 6-month. End-stage renal disease secondary to Goodpasture's syndrome. He reports good compliance with his peritoneal dialysis therapy and does CCPD every night, roughly 8 hours. He is unclear as to the amount of exchanges that he does and is dry during the day. Despite his apparent compliance with peritoneal dialysis his BUN is 120 and his creatinine is 20.3. His bicarb is down to 20. He was also noted to have quite significant hypocalcemia with a calcium 6.6, albumin 2.5, corrected calcium of 7.7. He takes Renvela. PD uncomplicated. Exit site appears comfortable, no discharge. Denies any extremity edema, shortness of breath or other hypervolemic symptoms. Apart from fatigue and weakness, no other apparent uremic symptoms. Denies any fevers, chills. Cortisol level 10 this morning without any prior exposures to high-dose steroids in his recent history. Echocardiogram was performed: Pending, EKG looks good. Review of Systems Narrative: 12 point review of systems completed per HPI and subjective assessment, this includes Constitutional: Weakness, fatigue Respiratory: No SOB on exertion, comfortable at rest CardioVasc: No chest pain, palpitations Gastrointestinal: No nausea, no vomiting Neurological: No seizures, no AMS Derm: No new rashes, lesions or wounds Immunological: No seasonal and no food allergies Medications/Allergies Home Medications Medication Instructions Recorded Confirmed Last Taken Type ondansetron 4 mg oral soluble film 4 mg PO DAILY PRN #15 each 02/20/21 11/13/21 03/03/21 Rx pantoprazole 40 mg tablet,delayed 40 mg PO DAILY 03/02/21 11/13/21 11/13/21 History release carvedilol 25 mg tablet 25 mg PO BID 07/28/21 11/13/21 11/13/21 History sevelamer carbonate 800 mg tablet 1,600 mg PO TID tab 07/28/21 11/13/21 11/13/21 History (Renvela) vitamin B complex with C-folic 1 tab PO DAILY 07/28/21 11/13/21 11/13/21 History acid 0.8 mg-zinc citrate 15 mg tablet (Dialyvite 800 with Zinc 15) neomycin 3.5 mg/g-polymyxin B 1 applic OPHTHALMIC (EYE) ONCE g 08/17/21 11/13/21 Unknown History 10,000 unit/g-dexameth 0.1 % eye oint colchicine 0.6 mg tablet See Rx Instructions PO BID PRN 09/13/21 11/13/21 Unknown History Synthroid 75 mcg tablet 75 mcg PO DAILY #30 tab NS 10/20/21 11/13/21 11/13/21 Rx (levothyroxine) amlodipine 10 mg tablet 5 mg PO DAILY #0 tab 11/11/21 11/13/21 11/13/21 Rx losartan 50 mg tablet 25 mg PO BID tab 11/11/21 11/13/21 11/13/21 History minoxidil 10 mg tablet 5 mg PO BID tab 11/11/21 11/13/21 11/13/21 History fluticasone propionate 50 1 spray INTRANASAL DAILY PRN 11/13/21 11/13/21 Unknown History mcg/actuation nasal spray,suspension pyridoxine (vitamin B6) 100 mg 100 mg PO DAILY 11/13/21 11/13/21 11/13/21 History tablet (Vitamin B-6) Allergies Allergy/AdvReac Type Severity Reaction Status Date / Time heparin Allergy Burnt out Verified 11/11/21 09:43 platelets Penicillins AdvReac I just Verified 11/11/21 09:43 did not feel good Current Medications Generic Name Dose Route Start Last Admin Trade Name Freq PRN Reason Stop Dose Admin Norepinephrine Bitartrate 4 mg 254 mls @ 0 mls/hr 11/13/21 20:16 11/14/21 09:45 / Dextrose IV 10 mcg/min .Q0M QUEENIE 38.1 mls/hr Administration Protocol Per Protocol Sodium Chloride 1,000 mls @ 75 mls/hr 11/13/21 20:16 11/14/21 08:09 Sodium Chloride 0.9% IV 75 mls/hr .[id number] QUEENIE Administration Lactated Ringer's 500 mls @ 999 mls/hr 11/14/21 11:18 11/14/21 11:28 Lactated Ringers IV 11/14/21 11:48 999 mls/hr .Q31M ONE Administration Midodrine 5 mg 11/14/21 09:00 11/14/21 08:08 Midodrine 5 Mg Tablet PO 5 mg TID QUEENIE Administration Sevelamer Carbonate 1,600 mg 11/14/21 08:00 11/14/21 08:09 Sevelamer 800 Mg Tablet PO 1,600 mg TIDWM QUEENIE Administration PFSH Acute PFSH: Medical History Acute kidney injury Anemia Gout Metabolic acidosis Surgical History H/O left inguinal hernia repair Laparoscopic extraperitoneal History of circumcision History of peritoneal dialysis Normal colonoscopy 03/2007 S/P hemodialysis catheter insertion Removed 12/24/2020 Family History Brother Cancer Prostate Other Osteoarthritis Osteoporosis Denies family history of Anesthesia complication Bleeding disorder Social History Smoking and tobacco status: never smoked Alcohol intake: current Alcohol intake frequency: holidays/special occasions only Lives independently: Yes Household members: spouse Marital status: Current occupational status: employed Vitals/I&O/Wt Last Vital Signs Temp 98.5 F 11/14/21 07:30 Pulse 74 11/14/21 10:35 Resp 7 L 11/13/21 19:45 BP 97/56 11/14/21 10:35 Pulse Ox 93 11/14/21 10:35 11/13/21 11/14/21 11/14/21 22:59 06:59 14:59 Intake Total 11.125 / 11.125 146.177 / 691.503 2164.75 / 1257.75 Output Total 0 / 0 0 / 0 Balance 11.125 / 11.125 146.177 / 137.234 4489.75 / 1257.75 Weight last 48 hrs Weight 73.301 kg Weight 67.132 kg Physical Exam Narrative: Constitutional: Awake, comfortable HEENT: Wet mucosa, no jvp, non icteric Lungs: Bilaterally clear without discernible wheeze, rales in all lung zones CVS: S1 S2, no murmurs Abdo: Soft, BS ok, PD exit site looks good Ext 4: Minimal edema, peripheral perfusion with no cyanosis Neurological: Grossly non-focal Data : 11/14/21 04:40 11/14/21 04:40 Micro: Microbiology 11/13/21 22:37 Blood Culture - Preliminary Blood SPECIMEN COLLECTED 11/13/21 22:34 Blood Culture - Preliminary Blood SPECIMEN COLLECTED A&P Assessment and plan (1) Chronic kidney disease: Status: Acute Plan 1. End-stage renal disease on PD Despite his apparent good compliance, it appears that he may be under dialyzed which may be in part leading to his weakness. During his hospital stay here will initiate on CAPD, 5 exchanges of 2 L of 1.5% dextrose solution. If we see good clearance with this prescription, that we may see his urea levels dropping an improvement in his overall symptoms. If this is the case, he will need to uptitrate his PD prescription as an outpatient, otherwise, will consider respite hemodialysis. 2. Hypotension He is overly under his dry weight due to very poor oral intake over the past 1 week which may be a consequence of urea and under dialysis. Is currently on IV hydration I will give him another bolus of lactated Ringer's. Will use low concentration dextrose. Cortisol level 10, this is nondiagnostic and if he remains hypotensive will consider cortisol stimulation test. Echocardiogram done and pending. As needed vasopressor agents Other work-up per medical team 3. Hypocalcemia Surprisingly hypocalcemic, will give calcitriol and switch Renvela for PhosLo. 4. Anemia of ESRD Just following below goal, continue to monitor for the time being. Markus Menchaca MD Nephrology [phone] Patient seen and examined via telemedicine, with the assistance of the bedside RN > 25 min spent in evaluation and mgmt of patient Coding Level of Care Code Acute Imaging Administrator for [employer] Fwd Diagnoses Chronic kidney disease N18.9
[2021-11-14] MEDS: calcium acetate 667 mg Capsule 1334 MG PO ×2 (12:17→17:33)
[2021-11-14] MEDS: levothyroxine 75 mcg Tablet PO (12:17)
[2021-11-14] MEDS: calcitriol 0.25 mcg Capsule PO (12:17)
[2021-11-14] MEDS: albumin 12.5 GM/250 ML VIAL IV (12:41)
[2021-11-14] MEDS: Dianeal low Ca w/1.5% dex 2,000 mL Bag 2000 ML INTRAPERIT ×3 (13:47→22:23)
[2021-11-15] VITALS (102 sets, daily range): BP systolic 92–132; BP diastolic 43–77; PULSE 68–99; RESP 16–20; O2SAT 85–97
[2021-11-15] MEDS: Dianeal low Ca w/1.5% dex 2,000 mL Bag 2000 ML INTRAPERIT ×5 (05:47→22:02)
[2021-11-15 06:06] LABS: Basophils % 0.2 %; Eosinophils # 0.2 10^3/uL (0.0-0.8); Eosinophils % 3.3 %; Hematocrit 25.9 % (42.0-52.0); Hemoglobin 9.5 g/dL (11.7-16.6); Lymphocytes % 18.9 %; Mean Corpuscular HGB Conc 36.7 g/dL (30.0-36.0); Mean Corpuscular Hemoglobin 30.7 pg (28.0-34.0); Mean Corpuscular Volume 83.8 fl (80-94); Mean Platelet Volume 11.3 fL (7.4-10.4); Monocytes # 0.3 10^3/uL (0.2-0.9); Monocytes % 6.2 %; Neutrophils # 3.85 10^3/uL (1.8-7.7); Neutrophils % 70.1 %; Nucleated Red Blood Cells % 0 %; Platelet Count 65 10^3/cmm (130-400); Red Blood Count 3.09 10^6/uL (4.1-5.3); Red Cell Distribution Width 13.8 % (12.1-15.1); White Blood Count 5.5 10^3/uL (4.0-10.0)
[2021-11-15 06:35] LABS: Anion Gap 22.8 (5-19); Calcium 6.8 mg/dL (8.5-10.5); Carbon Dioxide 20 mmol/L (22-29); Chloride 90 mmol/L (98-107); Glomerular Filtration Rate 2.5 mL/min (90-130); Glucose 101 mg/dL (65-115); Potassium 3.8 mmol/L (3.5-5.1); Sodium 129 mmol/L (136-145)
[2021-11-15 06:53] LABS: Blood Urea Nitrogen 118 mg/dL (8-23); Osmolality Calculated 306 mOsm/kg (285-295)
[2021-11-15] MEDS: midodrine 5 mg TABLET PO ×3 (07:50→20:21)
[2021-11-15] MEDS: calcitriol 0.25 mcg Capsule PO (07:51)
[2021-11-15] MEDS: levothyroxine 75 mcg Tablet PO (07:51)
[2021-11-15] MEDS: calcium acetate 667 mg Capsule 1334 MG PO ×3 (07:51→17:54)
--- NOTE | 2021-11-15 09:38 | PC.CHAP ---
Pastoral Care Encounter/Spiritual Assessment Type of Contact [] Declined fruit press operator visit [] Patient/Family/Request visit [] Outpatient visit [] Follow-up visit [] Physician referral [] Code/Alert [x] Routine visit [] Staff referral [] Actively dying [x] Patient sleeping [] Family support [] [] Out of room [] Palliative care [] [] Receiving care in room [] Pre-surgical visit [] Trauma [] Long length of stay [x] ICU visit [] Other: Relational/Emotional Strength [] Patient feels connected with others/family/visitors/staff [] Distress [] Loneliness/isolation [] Abandonment Spirituality of Patient [] Person of Yovana [] Attends Presybeterian of their Yovana [] Believes in Prayer [] Reads Bible or Sabianist materials [] There are Spiritual issues to be addressed Back Up Scan Coordinator Interventions [x] Prayer [] Active listening [] Non-anxious presence [] Spiritual/emotional support [] Crisis/trauma care [] Spiritual counseling [] Bereavement support [] Provided bereavement packet [] Provided Bible/devotional materials [] Provided toy/stuffed animal, coloring book to patient or family member [] Provided Communion [] Anointing/[place] [] Salvation [x] Completed spiritual assessment [] Other: Impact on Illness or Injury [] Angry [] Fearful [] Anxious [] Often cries [] Exhaustion [] Unable to work [] Unable to attend restorationist [] Unable to walk/stand [] Unable to read [] Unable to drive [] Unable to eat/drink [] Unable to sleep [] Unable to be with family [] Patient intubated [] Other: Summary Time spent with patient
--- NOTE | 2021-11-15 09:45 | ECG_ITS ---
[facility] Test Date: 2021-11-15 Pat Name: Mikey Godinez Department: Room: [facility] Gender: Male Dinkey Operator Slag: : 1955 Requested By: Essence Wong Order Number: [id number] [place] MD: Justin Kapadia M.D. Measurements Intervals [place] Rate: 78 P: 70 ND: 168 QRS: 68 QRSD: 100 T: 76 QT: 381 QTc: 437 Interpretive Statements SINUS RHYTHM WITH OCCASIONAL SUPRAVENTRICULAR PREMATURE COMPLEXES Compared to ECG 11/14/2021 03:13:20 No significant changes Electronically Signed On 11-15-2021 18:28:50 CDT by Justin Kapadia M.D. [email or web address] Energymercy health st[id number]
--- NOTE | 2021-11-15 11:10 | ECG_ITS ---
[facility] Test Date: 2021-11-16 Pat Name: Mikey Godinez Department: Room: ICU07 Gender: Male Record Label Internship: : 1955 Requested By: Esesnce Wong Order Number: [id number] [place] MD: Kirsten Alvarez M.D. Interpretive Statements NAME OF STUDY: LEXISCAN SESTAMIBI STRESS TEST INDICATION: Unstable Angina PROCEDURE: At the baseline, the EKG [id number] normal sinus rhythm with normal ST Ts. The baseline blood pressure was 124/84 mm Hg with a heart rate of 75 beats/min. Lexiscan was infused over a period of 20 seconds. A total of 0.4 milligrams of Lexiscan was infused. The stress phase was continued for a total of 5 minutes. Heart rate at the end of the stress phase was 89 with a blood pressure 116/62. The EKG at the peak infusion revealed no significant changes. Sestamibi was injected 20 seconds after the Lexiscan infusion. Blood pressure at the end of the recovery phase was 111/62 with a heart rate of 89 per minute. CONCLUSION: 1. No significant EKG changes with the LexiScan infusion 2. No LexiScan induced chest pain or cardiac arrhythmia 3. Normal blood pressure and heart rate response 4. Sestamibi/sestamibi perfusion scan pending; see separate report. Electronically Signed On 11-16-2021 13:08:44 CDT by Kirsten Alvarez M.D. [id number]
--- NOTE | 2021-11-15 11:41 | PM.PN ---
Subjective Subjective: Echo unremarkable No overnight events Patient is is endorsing feeling better however he is stating that with peritoneal dialysis back he does get bloated and now he is experiencing some heaviness in his chest, EKG is unremarkable, I will request stress test tomorrow morning Echo is unremarkable no regional wall motion abnormality He would not call his chest heaviness as chest pain it is nonradiating, he is stating that this chest heaviness does improve after PD is completed S/p 1 bag of albumin levo at 1 mics today Vitals/I&O/Wt Last Vital Signs Temp 98.5 F 11/14/21 17:30 Pulse 70 11/15/21 09:00 Resp 18 11/15/21 09:00 BP 116/65 11/15/21 08:00 Pulse Ox 91 11/15/21 09:00 11/14/21 11/15/21 11/15/21 22:59 06:59 14:59 Intake Total 1399.800 / 3705.750 2358.013 / 6063.763 2258.811 / 2258.811 Output Total 2500 / 2500 0 / 2500 3100 / 3100 Balance -1100.200 / 7221.968 5249.013 / 3563.763 -841.189 / -841.189 Weight last 48 hrs Weight 78.471 kg Weight 78.517 kg Weight 73.301 kg Weight 67.132 kg Physical Exam Narrative: Laying flat No active distress Patient stating he could not sleep However no active signs of stroke Abdomen nontender Peritoneal dialysis active at this point No signs of significant edema Saturating well on room air, I have discontinued his nasal cannula oxygen supplementation today He did well on room air Data : 11/15/21 04:28 11/15/21 04:28 Micro: Microbiology 11/13/21 22:37 Blood Culture - Preliminary Blood NEGATIVE TO DATE 11/13/21 22:34 Blood Culture - Preliminary Blood NEGATIVE TO DATE A&P Assessment and plan (1) Chronic kidney disease: Status: Acute (2) Chronic hypertension: Status: Acute (3) Anemia: Status: Acute (4) Metabolic acidosis: Status: Resolved (5) Restless leg syndrome: Status: Acute (6) Hypotension: Status: Acute (7) Goodpasture's disease: Status: Acute (8) History of peritoneal dialysis: Status: Acute (9) Hyperphosphatemia: Status: Acute Plan Hypotension Normal TSH and cortisol No typical signs of cardiogenic shock No active sepsis Without addition of steroids his blood pressure has improved with IV fluid hydration and albumin I do believe this is related to medications that he was taking at home Levo at 1 mics today Hypoalbuminemia: Given 1 bag of albumin yesterday No signs of tension pneumothorax or PE Chest discomfort: We will request discharge tomorrow morning, troponin leak could be type II ID, EKG and echo unremarkable Muscle cramps secondary to electrolyte imbalance: Given Flexeril today Hypoxia without respiratory failure: I have discontinued his supplemental oxygen, he is doing well on room air Hypocalcemia: Management as per nephro Hypophosphatemia: Phoslo Anemia of chronic disease no acute exacerbation Attestations Medical Necessity Statement*: Continue ICU management Time Spent in Patient Care: 30mins Coding Level of Care Code Acute 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
[2021-11-15] MEDS: cyclobenzaprine 10 mg Tablet 5 MG PO (12:36)
[2021-11-15] MEDS: calcium gluconate 0.9% NaCL 1 GM/50 ML PREMIX IV (13:41)
--- NOTE | 2021-11-15 14:45 | PM.CONSULT ---
Providers/Reason For Consult Consulting Physician/Specialty*: Dr. Willie Nettles, DO/ General Surgery Reason for Consult*: Need for temporary dialysis catheter Requesting Physician: Dr. Wong Attending Physician: Essence Wong MD Primary Care Provider: Bob Peñaloza MD History of Present Illness History of Present Illness Mikey Godinez is a 65 year old male who originally presented to the hospital with weakness and lethargy. 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 When he arrived to the hospital he was found to be hypotensive and required admission to ICU with vasopressor agents and IV fluids. He has been on peritoneal dialysis for about 1 year and was on hemodialysis via a permacath for about 6 months prior to that. He currently has diffuse abdominal pain secondary to infusion of IV fluids, per the patient, as he is normally dry at home. Pain is dull and constant and diffuse across the abdomen. Pain does not radiate. Patient denies any other symptoms. Review of Systems General: Reports: 10 or more systems reviewed and unremarkable except in HPI and below Medications/Allergies Home Medications Medication Instructions Recorded Confirmed Last Taken Type ondansetron 4 mg oral soluble film 4 mg PO DAILY PRN #15 each 02/20/21 11/13/21 03/03/21 Rx pantoprazole 40 mg tablet,delayed 40 mg PO DAILY 03/02/21 11/13/21 11/13/21 History release carvedilol 25 mg tablet 25 mg PO BID 07/28/21 11/13/21 11/13/21 History sevelamer carbonate 800 mg tablet 1,600 mg PO TID tab 07/28/21 11/13/21 11/13/21 History (Renvela) vitamin B complex with C-folic 1 tab PO DAILY 07/28/21 11/13/21 11/13/21 History acid 0.8 mg-zinc citrate 15 mg tablet (Dialyvite 800 with Zinc 15) neomycin 3.5 mg/g-polymyxin B 1 applic OPHTHALMIC (EYE) ONCE g 08/17/21 11/13/21 Unknown History 10,000 unit/g-dexameth 0.1 % eye oint colchicine 0.6 mg tablet See Rx Instructions PO BID PRN 09/13/21 11/13/21 Unknown History Synthroid 75 mcg tablet 75 mcg PO DAILY #30 tab NS 10/20/21 11/13/21 11/13/21 Rx (levothyroxine) amlodipine 10 mg tablet 5 mg PO DAILY #0 tab 11/11/21 11/13/21 11/13/21 Rx losartan 50 mg tablet 25 mg PO BID tab 11/11/21 11/13/21 11/13/21 History minoxidil 10 mg tablet 5 mg PO BID tab 11/11/21 11/13/21 11/13/21 History fluticasone propionate 50 1 spray INTRANASAL DAILY PRN 11/13/21 11/13/21 Unknown History mcg/actuation nasal spray,suspension pyridoxine (vitamin B6) 100 mg 100 mg PO DAILY 11/13/21 11/13/21 11/13/21 History tablet (Vitamin B-6) Allergies Allergy/AdvReac Type Severity Reaction Status Date / Time heparin Allergy Burnt out Verified 11/11/21 09:43 platelets Penicillins AdvReac I just Verified 11/11/21 09:43 did not feel good Current Medications Generic Name Dose Route Start Last Admin Trade Name Jose Antonioq PRN Reason Stop Dose Admin Calcitriol 0.25 mcg 11/14/21 11:40 11/15/21 07:51 Calcitriol 0.25 Mcg Capsule PO 0.25 mcg DAILY QUEENIE Administration Calcium Acetate 1,334 mg 11/14/21 12:00 11/15/21 12:36 Calcium Acetate 667 Mg Capsule PO 1,334 mg TIDWM QUEENIE Administration Cyclobenzaprine HCl 5 mg 11/15/21 11:09 11/15/21 12:36 Cyclobenzaprine 10 Mg Tablet PO 5 mg TID PRN Administration MUSCLE SPASMS Norepinephrine Bitartrate 4 mg 254 mls @ 0 mls/hr 11/13/21 20:16 11/15/21 12:51 / Dextrose IV 0 mcg/min .Q0M QUEENIE 0 mls/hr Titration Protocol Per Protocol Levothyroxine Sodium 75 mcg 11/14/21 11:35 11/15/21 07:51 Levothyroxine 75 Mcg Tablet PO 75 mcg DAILY QUEENIE Administration Midodrine 5 mg 11/14/21 09:00 11/15/21 07:50 Midodrine 5 Mg Tablet PO 5 mg TID QUEENIE Administration Peritoneal Dialysis Solution 2,000 ml 11/14/21 14:00 11/15/21 13:56 Dianeal Low Ca W/1.5% Dex 2,000 Ml Bag INTRAPERIT 2,000 ml 5XD QUEENIE Administration PFSH Acute PFSH: Medical History Acute kidney injury Anemia Gout Metabolic acidosis Surgical History H/O left inguinal hernia repair Laparoscopic extraperitoneal History of circumcision History of peritoneal dialysis Normal colonoscopy 03/2007 S/P hemodialysis catheter insertion Removed 12/24/2020 Family History Brother Cancer Prostate Other Osteoarthritis Osteoporosis Denies family history of Anesthesia complication Bleeding disorder Social History Smoking and tobacco status: never smoked Alcohol intake: current Alcohol intake frequency: holidays/special occasions only Lives independently: Yes Household members: spouse Marital status: Current occupational status: employed Vitals/I&O/Wt Last Vital Signs Temp 98.5 F 11/14/21 17:30 Pulse 72 11/15/21 14:00 Resp 18 11/15/21 14:03 BP 113/59 11/15/21 14:00 Pulse Ox 95 11/15/21 14:00 11/14/21 11/15/21 11/15/21 22:59 06:59 14:59 Intake Total 1399.800 / 3705.750 2358.013 / 6063.763 3265.415 / 3265.415 Output Total 2500 / 2500 0 / 2500 3100 / 3100 Balance -1100.200 / 4477.935 7057.013 / 3563.763 165.415 / 165.415 Weight last 48 hrs Weight 173 lb Weight 173 lb 1.6 oz Weight 161 lb 9.6 oz Weight 148 lb Physical Exam Narrative: General : Patient is well developed , no acute distress, oriented x3 Head : Normal cephalic, a-traumatic. Ears : Pinnae and external canal are normal. Hearing is normal. Eyes : PERRLA, Sclera and injection are normal. No conjunctival discharge. Nose : Mucous membranes are without erythema. Throat : buccal mucosa is normal, gums are without significant recession or hypertrophy. Lungs : Equal chest rise bilaterally, no use of accessory muscles, trachea is midline. Cor : Rate and rhythm are normal. Abdomen : Soft, ND, NT, no g/r/m Extremities : no cyanosis or clubbing, dorsalis pedis pulses are present bilaterally, non-tender to palpation of calves. Upper extremities are normal bilaterally. Back : non-tender to palpation, no CVA tenderness. Neuro : CN II - XII intact, Upper and lower extremities have equal and full strength Data : 11/15/21 04:28 11/15/21 04:28 Micro: Microbiology 11/13/21 22:37 Blood Culture - Preliminary Blood NEGATIVE TO DATE 11/13/21 22:34 Blood Culture - Preliminary Blood NEGATIVE TO DATE A&P Assessment and plan (1) End stage renal disease: Status: Acute Plan I spoke with nephrology. They would prefer a tunneled cather vs. a temporary dialysis catheter. I spoke with the patient and his , and they are now willing to proceed with a tunneled catheter. Nephrology reported to me that there is no emergent need for dialysis, and he can wait a couple of days for catheter placement if necessary. My office is currently working with the OR to schedule him for tomorrow or 7am Sunday. Permacath placement The risks and benefits of the procedure, including but not limited to, bleeding, infection, infection requiring catheter removal antibiotic therapy and repeat placement, catheter dysfunction, damage to surrounding structures, scar, numbness, pain, pneumothorax requiring thoracostomy tube, were explained to the patient. He is understanding of the risks and wishes to proceed. 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
[2021-11-15] MEDS: vancomycin 1,000 MG in sodium chloride 0.9% 250 ML 250 MG IV (20:20)
[2021-11-16] VITALS (88 sets, daily range): BP systolic 96–145; BP diastolic 46–82; PULSE 68–94; RESP 11–24; TEMP 36.4–37.1; O2SAT 88–96
--- NOTE | 2021-11-16 | SCC_ITS ---
Procedure done: Permacath placement 5.4 seconds of fluoroscopic guidance, for a cumulative dose of 0.8mGy, was provided to Dr. Nettles by the radiology department. C-arm images of the chest were saved for the patient's permanent record. ABHILASHD
[2021-11-16 04:47] LABS: Basophils % 0.4 %; Eosinophils # 0.2 10^3/uL (0.0-0.8); Eosinophils % 3.6 %; Hematocrit 25.3 % (42.0-52.0); Lymphocytes # 1.2 10^3/uL (0.8-4.8); Lymphocytes % 21.6 %; Mean Corpuscular HGB Conc 35.6 g/dL (30.0-36.0); Mean Corpuscular Volume 87.2 fl (80-94); Mean Platelet Volume 10.7 fL (7.4-10.4); Monocytes # 0.4 10^3/uL (0.2-0.9); Monocytes % 7.6 %; Neutrophils # 3.67 10^3/uL (1.8-7.7); Neutrophils % 65.9 %; Nucleated Red Blood Cells % 0 %; Platelet Count 63 10^3/cmm (130-400); White Blood Count 5.6 10^3/uL (4.0-10.0)
[2021-11-16 05:10] LABS: Anion Gap 20.5 (5-19); Calcium 7.2 mg/dL (8.5-10.5); Carbon Dioxide 21 mmol/L (22-29); Chloride 92 mmol/L (98-107); Glomerular Filtration Rate 2.7 mL/min (90-130); Glucose 93 mg/dL (65-115); Osmolality Calculated 303 mOsm/kg (285-295); Potassium 3.5 mmol/L (3.5-5.1); Sodium 130 mmol/L (136-145)
[2021-11-16 05:14] LABS: Blood Urea Nitrogen 106 mg/dL (8-23)
[2021-11-16] MEDS: regadenoson 0.4 Mg/5 ml Syringe IVP (07:49)
--- NOTE | 2021-11-16 09:05 | W.PM.OPSUD ---
Surgery/Procedure H&P Update DATE OF PROCEDURE: November 16, 2021 DATE H&P PERFORMED: 11/15/21 CHANGES TO PREVIOUS DOCUMENTATION: NONE PREOP DIAGNOSIS: End Stage Renal Disease PRIMARY INDICATION FOR PROCEDURE: End stage renal disease PLANNED PROCEDURE: Operation Date: 11/16/21 09:55 Proposed Procedures p Dialysis Catheter Insertion(Right) - Willie Nettles DO
--- NOTE | 2021-11-16 09:09 | ANES.PREANE2 ---
Pre-Anesthetic Assessment Height/Weight: Height 1.68 m Weight 77.111 kg Temp Pulse Resp BP Pulse Ox 98.7 F 94 18 111/62 93 11/16/21 04:10 11/16/21 08:10 11/15/21 18:05 11/16/21 08:10 11/16/21 06:15 Preop Diagnosis: End Stage Renal Disease Operation Date: 11/16/21 09:55 Proposed Procedures p Dialysis Catheter Insertion(Right) - Willie Nettles DO Familial anesthetic complications: None Was Beta Suraj taken within 24 hours: Yes Was Clonidine taken within 24 hours: N/A Social No alcohol and No tobacco Exam alert, oriented x 3, clear to auscultation bilaterally and regular rate & rhythm Airway Submandibular: within normal limits Cervical ROM: within normal limits Mallampati: Class II Dentition: false Pulmonary Chronic Obstructive Pulmonary Disease Good Pasture's syndrome CV/HEM Anemia, Coronary Artery Disease and Hypertension LV systolic function is normal with EF 55 to 60%. ?Grade 1 diastolic dysfunction. ?Mild mitral regurgitation.? Mild mitral annular calcification. ?Mild tricuspid regurgitation. ?No comparison studies are available Chronic Renal Failure (peritoneal dialysis) Metabolic Diabetes Mellitus and Thyroid Disease Anesthetic Plan ASA status: 3 Anesthesia: Choice Medications/Allergies Home Medications Medication Instructions Recorded Confirmed Last Taken Type ondansetron 4 mg oral soluble film 4 mg PO DAILY PRN #15 each 02/20/21 11/13/21 03/03/21 Rx pantoprazole 40 mg tablet,delayed 40 mg PO DAILY 03/02/21 11/13/21 11/13/21 History release carvedilol 25 mg tablet 25 mg PO BID 07/28/21 11/13/21 11/13/21 History sevelamer carbonate 800 mg tablet 1,600 mg PO TID tab 07/28/21 11/13/21 11/13/21 History (Renvela) vitamin B complex with C-folic 1 tab PO DAILY 07/28/21 11/13/21 11/13/21 History acid 0.8 mg-zinc citrate 15 mg tablet (Dialyvite 800 with Zinc 15) neomycin 3.5 mg/g-polymyxin B 1 applic OPHTHALMIC (EYE) ONCE g 08/17/21 11/13/21 Unknown History 10,000 unit/g-dexameth 0.1 % eye oint colchicine 0.6 mg tablet See Rx Instructions PO BID PRN 09/13/21 11/13/21 Unknown History Synthroid 75 mcg tablet 75 mcg PO DAILY #30 tab NS 10/20/21 11/13/21 11/13/21 Rx (levothyroxine) amlodipine 10 mg tablet 5 mg PO DAILY #0 tab 11/11/21 11/13/21 11/13/21 Rx losartan 50 mg tablet 25 mg PO BID tab 11/11/21 11/13/21 11/13/21 History minoxidil 10 mg tablet 5 mg PO BID tab 11/11/21 11/13/21 11/13/21 History fluticasone propionate 50 1 spray INTRANASAL DAILY PRN 11/13/21 11/13/21 Unknown History mcg/actuation nasal spray,suspension pyridoxine (vitamin B6) 100 mg 100 mg PO DAILY 11/13/21 11/13/21 11/13/21 History tablet (Vitamin B-6) Allergies Allergy/AdvReac Type Severity Reaction Status Date / Time heparin Allergy Burnt out Verified 11/11/21 09:43 platelets Penicillins AdvReac I just Verified 11/11/21 09:43 did not feel good Current Medications Generic Name Dose Route Start Last Admin Trade Name Freq PRN Reason Stop Dose Admin Calcitriol 0.25 mcg 11/14/21 11:40 11/15/21 07:51 Calcitriol 0.25 Mcg Capsule PO 0.25 mcg DAILY QUEENIE Administration Calcium Acetate 1,334 mg 11/14/21 12:00 11/15/21 17:54 Calcium Acetate 667 Mg Capsule PO 1,334 mg TIDWM QUEENIE Administration Cyclobenzaprine HCl 5 mg 11/15/21 11:09 11/15/21 12:36 Cyclobenzaprine 10 Mg Tablet PO 5 mg TID PRN Administration MUSCLE SPASMS Norepinephrine Bitartrate 4 mg 254 mls @ 0 mls/hr 11/13/21 20:16 11/15/21 12:51 / Dextrose IV 0 mcg/min .Q0M QUEENIE 0 mls/hr Titration Protocol Per Protocol Levothyroxine Sodium 75 mcg 11/14/21 11:35 11/15/21 07:51 Levothyroxine 75 Mcg Tablet PO 75 mcg DAILY QUEENIE Administration Midodrine 5 mg 11/14/21 09:00 11/15/21 20:21 Midodrine 5 Mg Tablet PO 5 mg TID QUEENIE Administration Peritoneal Dialysis Solution 2,000 ml 11/14/21 14:00 11/15/21 22:02 Dianeal Low Ca W/1.5% Dex 2,000 Ml Bag INTRAPERIT 2,000 ml 5XD QUEENIE Administration PFSH Anesthesia Medical History Acute kidney injury Anemia Gout Metabolic acidosis Surgical History H/O left inguinal hernia repair Laparoscopic extraperitoneal History of circumcision History of peritoneal dialysis Normal colonoscopy 03/2007 S/P hemodialysis catheter insertion Removed 12/24/2020 Family History Brother Cancer Prostate Other Osteoarthritis Osteoporosis Denies family history of Anesthesia complication Bleeding disorder Social History Smoking and tobacco status: never smoked Alcohol intake: current Alcohol intake frequency: holidays/special occasions only Lives independently: Yes Household members: spouse Marital status: Current occupational status: employed Data Anesthesia : 11/16/21 04:26 11/16/21 04:26 Short CBC 11/15/21 11/16/21 Range/Units 04:28 04:26 WBC 5.5 5.6 (4.0-10.0) 10^3/uL Hgb 9.5 L 9.0 L (11.7-16.6) g/dL Hct 25.9 L 25.3 L (42.0-52.0) % MCV 83.8 87.2 (80-94) fl Plt Count 65 L 63 L (130-400) 10^3/cmm Neut % (Auto) 70.1 65.9 % Neut # (Auto) 3.85 3.67 (1.8-7.7) 10^3/uL BMP 11/15/21 11/16/21 04:28 04:26 Sodium 129 L 130 L Potassium 3.8 3.5 Chloride 90 L 92 L Carbon Dioxide 20 L 21 L BUN 118 H* 106 H* Creatinine 19.1 H* 17.7 H* Glucose 101 93 Calcium 6.8 L 7.2 L Cardiac Studies: Echocardiogram 11/14/21 Sestamibi Stress Test (Cardiology) 11/15/21
[2021-11-16] MEDS: calcitriol 0.25 mcg Capsule PO (10:04)
[2021-11-16] MEDS: midodrine 5 mg TABLET PO (10:04)
[2021-11-16] MEDS: levothyroxine 75 mcg Tablet PO (10:04)
[2021-11-16] MEDS: calcium acetate 667 mg Capsule 1334 MG PO ×3 (10:12→18:22)
[2021-11-16] MEDS: vancomycin 1,000 MG in sodium chloride 0.9% 250 ML 250 MG IV (10:18)
--- NOTE | 2021-11-16 10:32 | PC.CHAP ---
Pastoral Care Encounter/Spiritual Assessment Type of Contact [] Declined wind up worker visit [] Patient/Family/Request visit [] Outpatient visit [] Follow-up visit [] Physician referral [] Code/Alert [x] Routine visit [] Staff referral [] Actively dying [x] Patient sleeping [] Family support [] [] Out of room [] Palliative care [] [] Receiving care in room [] Pre-surgical visit [] Trauma [] Long length of stay [x] ICU visit [] Other: Relational/Emotional Strength [] Patient feels connected with others/family/visitors/staff [] Distress [] Loneliness/isolation [] Abandonment Spirituality of Patient [] Person of Yovana [] Attends Holiness of their Yovana [] Believes in Prayer [] Reads Bible or Episcopal materials [] There are Spiritual issues to be addressed Waterproof Bag Sewer Interventions [x] Prayer [] Active listening [] Non-anxious presence [] Spiritual/emotional support [] Crisis/trauma care [] Spiritual counseling [] Bereavement support [] Provided bereavement packet [] Provided Bible/devotional materials [] Provided toy/stuffed animal, coloring book to patient or family member [] Provided Communion [] Anointing/Alba [] Salvation [x] Completed spiritual assessment [] Other: Impact on Illness or Injury [] Angry [] Fearful [] Anxious [] Often cries [] Exhaustion [] Unable to work [] Unable to attend anglican [] Unable to walk/stand [] Unable to read [] Unable to drive [] Unable to eat/drink [] Unable to sleep [] Unable to be with family [] Patient intubated [] Other: Summary Time spent with patient
--- NOTE | 2021-11-16 10:33 | XR_ITS ---
WS: [id number] Portable AP upright chest, 11/16/2021 Clinical Data: DIALYSIS CATHETER PLACEMENT Comparison: Portable chest, 11/13/2021. Findings: The right dialysis catheter enters the right internal jugular vein and ends in the superior vena cava. No pneumothorax is seen. Monitor leads are on the chest wall. No acute cardiopulmonary di sease is present. XR/XR chest 1V portable [id number] Impression: Right dialysis catheter.
--- NOTE | 2021-11-16 11:00 | SC_ITS ---
WS: [id number] C-arm fluoroscopy for dialysis catheter placement, 11/16/2021 Clinical Data: OR PICS Comparison: None. Findings: A right dialysis catheter has been inserted via the right internal jugular vein and ends in the super ior vena cava. SC/C-arm FL for CVA [id number] Impression: Insertion of right dialysis catheter.
--- NOTE | 2021-11-16 11:10 | NMCV_ITS ---
NM troy perf SPECT r/s* [id number] Mikey Godinez Age: 65 Gender: M : 1955 Exam Date: 11/16/2021 07:11 Ordering Phys: Essence Wong MD Technologist: SANDRINE Nicholson Exam Location: [facility] Indications: CHEST PAIN STRESS TEST Please see separate stress test report in [facility] for full findings IMAGE PROTOCOL Rest/Stress 1 Lexiscan Day Radiopharmaceutical Dose (mCi) Administration Site Administered by Rest: Tc-99m 10.9 IV SANDRINE Barboza Sestamibi Stress:Tc-99m 32.6 IV SANDRINE Barboza Sestamibi Rest: 16-Nov-2021 60 Discovery 630 Stress: 16-Nov-2021 30 Discovery 630 0.4mg Lexiscan. Images obtained in supine and prone position. SPECT RESULTS Technical Quality: Excellent Raw Data Analysis: Normal Image Corrections: No attenuation or motion correction applied Summed Stress Score: 0 Summed Rest Score: 0 Summed Difference Score: 0 PERFUSION FINDINGS Fairly uniform myocardial tracer uptake except some attenuation artifact inferior wall region FUNCTIONAL RESULTS (calculated via Gated SPECT) Stress Image LV EF (%): 57 Stress EDV (mL):131 TID: 1 Stress ESV (mL):56 FUNCTIONAL FINDINGS: Segmental wall motion analysis revealing no gross wall motion abnormalities IMPRESSIONS 1. Unremarkable myocardial perfusion imaging 2. Normal LV ejection fraction 57%. 3. LV wall motion analysis revealing no gross wall motion abnormalities. 4. Normal LV volume Low probability for coronary ischemia, based on the above findings Dr Kirsten Alvarez MD [facility] (Electronically Signed) Final Date: 16 November 2021 12:45 S
--- NOTE | 2021-11-16 11:42 | PM.PN ---
Subjective Subjective: Status post dialysis cath placement, stress test result blood pressure is better, off vasopressors Patient is endorsing feeling better, spoke with his and Dr. Boyd Vitals/I&O/Wt Last Vital Signs Temp 98.7 F 11/16/21 04:10 Pulse 94 11/16/21 08:10 Resp 18 11/15/21 18:05 BP 111/62 11/16/21 08:10 Pulse Ox 93 11/16/21 06:15 11/15/21 11/16/21 11/16/21 22:59 06:59 14:59 Intake Total 4340 / 9755.415 480 / 45980.415 240 / 240 Output Total 4500 / 9700 2400 / 08738 Balance -160 / 55.415 -1920 / -1864.585 240 / 240 Weight last 48 hrs Weight 77.111 kg Weight 78.471 kg Weight 78.517 kg Physical Exam Narrative: No active distress Satting well on room air Status post dialysis catheter placement on right side Hemodynamically stable No active chest pain No audible stridor or wheezing Nonfocal neuro exam S1, S2 Data : 11/16/21 04:26 11/17/21 02:35 A&P Assessment and plan (1) End stage renal disease: Status: Acute (2) Hypotension: Status: Acute (3) Anemia: Status: Acute (4) Acquired hypothyroidism: Status: Acute (5) Restless leg syndrome: Status: Acute (6) History of peritoneal dialysis: Status: Acute (7) Goodpasture's disease: Status: Acute (8) Hyperphosphatemia: Status: Acute Plan Hypotension: Resolved off vasopressors it was likely related to drug-induced End-stage renal disease: Dr. Boyd recommended dialysis catheter placement for permacath, he thinks he is not getting enough peritoneal dialysis and his lethargy and fatigue could be related to inadequate peritoneal dialysis Electrolyte imbalance: Improved Atypical chest pain: Cardiac stress test report is pending Full code Cardiac diet Attestations Medical Necessity Statement*: Continue medical management, might be able to transfer out of ICU Time Spent in Patient Care: 20mins Coding Level of Care Code Acute Wrapper Hands Sprayer for g Fwd Diagnoses End stage renal disease N18.6 Hypotension I95.9 Anemia D64.9 Acquired hypothyroidism E03.9 Restless leg syndrome G25.81 History of peritoneal dialysis Z98.890 Goodpasture's disease M31.0 Hyperphosphatemia E83.39
--- NOTE | 2021-11-16 13:19 | PM.PN ---
Subjective Subjective: No new issues with Mr. Godinez today. Seen after placement of tunneled dialysis catheter. Remains weak, lethargic but otherwise feels okay. Hemodynamics reviewed, remained stable. Off pressors. Stress test noted to be negative. Vitals/I&O/Wt Last Vital Signs Temp 98.7 F 11/16/21 04:10 Pulse 94 11/16/21 08:10 Resp 18 11/15/21 18:05 BP 111/62 11/16/21 08:10 Pulse Ox 93 11/16/21 06:15 11/15/21 11/16/21 11/16/21 22:59 06:59 14:59 Intake Total 4340 / 9755.415 480 / 13577.415 240 / 240 Output Total 4500 / 9700 2400 / 06754 Balance -160 / 55.415 -1920 / -1864.585 240 / 240 Weight last 48 hrs Weight 77.111 kg Weight 78.471 kg Weight 78.517 kg Physical Exam Narrative: Constitutional: Awake, comfortable HEENT: Wet mucosa, no jvp, non icteric Lungs: Bilaterally clear without discernible wheeze, rales in all lung zones CVS: S1 S2, no murmurs Abdo: Soft, BS ok, PD exit site looks good Ext 4: Minimal edema, peripheral perfusion with no cyanosis Neurological: Grossly non-focal Data : 11/16/21 04:26 11/16/21 04:26 A&P Assessment and plan (1) Chronic kidney disease: Status: Acute Plan 1. End-stage renal disease on PD I have convinced him to have a trial of hemodialysis for the next 2 weeks, rest 5 from PD. He may need up titration of his PD prescription as an outpatient as well. It is likely that he is lost a component of his residual renal function, however, I would have to see KT/V breakdown to know this. Case discussed with Dr. Abrams his outpatient seal skinner. 2. Hypotension He is overly under his dry weight due to very poor oral intake over the past 1 week which may be a consequence of urea and under dialysis. More robust now, dialysis with minimal UF 3. Hypocalcemia Surprisingly hypocalcemic, will give calcitriol and switch Renvela for PhosLo. 4. Anemia of ESRD Just following below goal, continue to monitor for the time being. 5. Disposition Social work to set up outpatient hemodialysis in the same clinic that he goes to, [facility]. Markus Menchaca MD Nephrology [phone] Patient seen and examined via telemedicine, with the assistance of the bedside RN > 25 min spent in evaluation and mgmt of patient Attestations Medical Necessity Statement*: Eval for ESRD mgmt Coding Level of Care Code Acute Outside Plant Cable Engineer for Chg Fwd Diagnoses Chronic kidney disease N18.9
--- NOTE | 2021-11-16 13:42 | PC.SOCIAL ---
IMM update IMM updated with patient and . Copy PG 2 provided. Verbalized an understanding. Initialled, dated, timed, and placed in chart.
--- NOTE | 2021-11-16 14:18 | ANE.PACU2 ---
Inpatient post-anesthesia follow up: Airway intact: Yes Vital signs: Temperature 98.7 F Pulse Rate 77 Respiratory Rate 24 Blood Pressure 121/61 Pulse Oximetry 94 Oxygen Delivery Me thod Room Air Oxygen Flow Rate 2 Fraction of Inspir ed Oxygen Hydration adequate: Yes Nausea and vomiting: No Pain level: 1 Mental status: Baseline
--- NOTE | 2021-11-16 15:00 | PC.NURSE ---
Pt taken upstairs to dialysis room for hemodialysis. Tolerated transfer well.
--- NOTE | 2021-11-16 20:45 | PM.OP ---
Operative Report Date of procedure: November 16, 2021 Pre-op diagnosis: Preop Diagnosis End Stage Renal Disease Post-op diagnosis: same Procedure done: Permacath placement Specimens removed/disposition: none Surgeon: Dr. Willie Nettles DO Estimated blood loss: 5 Complications: none apparent Brief History: Patient with ESRD with inadequate peritoneal dialysis. Procedure: Patient was taken to the operating room and placed supine on the operating room table. All bony prominences were padded. He was given IV sedation and monitored throughout the case by the anesthesia personnel. SCDs were placed and turned on. The arms were tucked to the side. Patient received Vancomycin preoperatively IV. The bilateral chest wall was prepped and draped in usual sterile fashion using chlorhexidine base prep. Sterile drapes were applied. We did procedure pause prior to beginning. An 18 gauge needle was placed in the right internal jugular vein under ultrasound guidance. Dark, nonpulsatile blood was aspirated. A guidewire was placed through the needle centrally toward the atrial/vena caval junction. Fluoroscopy visualized good placement. The needle was removed and the guidewire was clipped to the drape with a hemostat. Further local anesthetic was infiltrated in the soft tissues of the right chest wall and a #15 blade was used to make a vertical skin incision. A #15 blade was used to make a small skin kristy around the guidewire insertion area. The permacath tubing was tunneled through the subcutaneous tissues up to the needle insertion location. Serial dilators were used to serially dilate over the guidewire . A dilator with a peel-away sheath was placed over the guidewire and placed centrally. The guidewire was removed as well as the dilator and the permacath was fed into the split sheath. The split sheath was removed. Both ports were aspirated to reveal dark blood and were flushed with saline only as the patient has a heparin allergy. final fluoroscopy visualization showed no kink in the catheter and the tip of the permacath tubing near the atrial/vena caval junction. Both skin incisions were thoroughly irrigated and suctioned dry. Meticulous hemostasis noted. The internal jugular access site was closed with 4-0 Vicryl in a subcuticular fashion. The skin overlying the permacath was closed in a similar manner. The permacath was then sutured into place using 2-0 nylon in a simple interrupted fashion. skin glue was applied as a topical dressing. This was allowed to dry. Patient was awakened from anesthesia and transferred via her cart to the recovery room in stable condition. All needle, sponge, and instrument counts were correct per the operating personnel x2 counts.
[2021-11-17] VITALS: BP 108/58; PULSE 95; RESP 16; TEMP 37; O2SAT 91
[2021-11-17 03:16] LABS: Blood Urea Nitrogen 67 mg/dL (8-23); Calcium 7.2 mg/dL (8.5-10.5); Carbon Dioxide 25 mmol/L (22-29); Chloride 98 mmol/L (98-107); Glomerular Filtration Rate 4.1 mL/min (90-130); Glucose 100 mg/dL (65-115); Osmolality Calculated 299 mOsm/kg (285-295); Sodium 135 mmol/L (136-145)
[2021-11-17 04:00] VITALS: BP 144/58; PULSE 85; RESP 16; TEMP 36.6; O2SAT 93
[2021-11-17 07:50] VITALS: BP 139/66; PULSE 91; RESP 16; TEMP 36.5; O2SAT 92
[2021-11-17] MEDS: calcitriol 0.25 mcg Capsule PO (08:20)
[2021-11-17] MEDS: calcium acetate 667 mg Capsule 1334 MG PO (08:20)
[2021-11-17] MEDS: levothyroxine 75 mcg Tablet PO (08:20)
--- NOTE | 2021-11-17 09:59 | P.DS_ITS ---
Discharge Providers Date of Admission: 11/13/21 19:24 Date of Discharge: November 17, 2021 Attending Provider at Admission: mAos Daly DO Attending Provider at Discharge: Essence Wong MD Primary Care Provider: Bob Peñaloza MD Diagnoses at Discharge Discharge Diagnosis (1) End stage renal disease: Status: Acute (2) Hypotension: Status: Acute (3) Anemia: Status: Acute (4) Acquired hypothyroidism: Status: Acute (5) Restless leg syndrome: Status: Acute (6) History of peritoneal dialysis: Status: Acute (7) Goodpasture's disease: Status: Acute (8) Hyperphosphatemia: Status: Acute Reason for Visit Reason for Visit: Faint, low BP, Fall on 11/12 Hospital Course Hospital Course 65-year-old male who was admitted to the hospital for chief complaint of low blood pressure. He was admitted in ICU, started vasopressors, he did not exhibit any signs or symptoms of cardiogenic shock, PE or tension pneumothorax, no signs of sepsis present. His hypotension was related to multiple use of antihypertensive regimen at home with inadequate peritoneal dialysis which probably caused hypotensive effect. TSH, cortisol unremarkable. Troponin likely type II MD, echo did not show any remarkable changes, stress test unremarkable for coronary ischemia. Dr. Boyd/steel melter recommended placement of permacath and start hemodialysis instead of peritoneal. He has chair time at [facility] on Sunday 1:45 PM. I have discontinued most of his antihypertensive regimen at the time of discharge except Coreg. His blood pressure has gradually improved, vasopressors turned off, he has not required any vasopressors in last 72 hours, no use of steroids during this hospitalization. Calcium was repleted. Please see nephrology note for further details. Detailed discussion with his Will discharge today after dialysis session Physical Exam Narrative: No active distress Satting well on room air Status post dialysis catheter placement on right side Hemodynamically stable No active chest pain No audible stridor or wheezing Nonfocal neuro exam S1, S Discharge Data Studies Completed and Pending Completed Studies During Hospitalization Category Date Time Status CT cervical spin wo con* [id number] Stat Cat Scan 11/13/21 15:[address] head wo con* [id number] Stat Cat Scan 11/13/21 15:43 Completed Sestamibi Stress Test Request Routine Exams 11/15/21 11:10 Completed XR chest 1V portable [id number] Routine Exams 11/16/21 10:33 Completed XR chest 1V portable [id number] Stat Exams 11/13/21 18:13 Completed NM troy perf SPECT r/s* [id number] Routine Nuc Med 11/16/21 11:10 Completed CV. echo complete* [id number] Routine Ultrasound 11/14/21 07:58 Completed Pending at discharge Category Date Time Status Blood Culture Stat Lab 11/13/21 22:37 Results Creatine Kinase w/o Total Routine Lab 11/14/21 04:40 Received Urinalysis and Microscopic Stat Lab 11/13/21 18:13 Uncollected Radiology Impressions Cervical Spine CT 11/13/21 15:43 IMPRESSION: No fracture of the cervical spine Head CT 11/13/21 15:43 IMPRESSION: 1. Old right thalamic lacunar infarct. 2. No acute intracranial injury or lesion. Chest X-Ray 11/16/21 10:33 Impression: Right dialysis catheter. C-Arm Fluoroscopy 11/16/21 11:00 Impression: Insertion of right dialysis catheter. Laboratory Results WBC 5.6 10^3/uL (4.0-10.0) 11/16/21 04:26 RBC 2.90 10^6/uL (4.1-5.3) L 11/16/21 04:26 Hgb 9.0 g/dL (11.7-16.6) L 11/16/21 04:26 Hct 25.3 % (42.0-52.0) L 11/16/21 04:26 MCV 87.2 fl (80-94) 11/16/21 04:26 MCH 31.0 pg (28.0-34.0) 11/16/21 04:26 MCHC 35.6 g/dL (30.0-36.0) 11/16/21 04:26 RDW 14.0 % (12.1-15.1) 11/16/21 04:26 Plt Count 63 10^3/cmm (130-400) L 11/16/21 04:26 MPV 10.7 fL (7.4-10.4) H 11/16/21 04:26 Neut % (Auto) 65.9 % 11/16/21 04:26 Lymph % (Auto) 21.6 % 11/16/21 04:26 [place] % (Auto) 7.6 % 11/16/21 04:26 Eos % (Auto) 3.6 % 11/16/21 04:26 Baso % (Auto) 0.4 % 11/16/21 04:26 Neut # (Auto) 3.67 10^3/uL (1.8-7.7) 11/16/21 04:26 Lymph # (Auto) 1.2 10^3/uL (0.8-4.8) 11/16/21 04:26 [place] # (Auto) 0.4 10^3/uL (0.2-0.9) 11/16/21 04:26 Eos # (Auto) 0.2 10^3/uL (0.0-0.8) 11/16/21 04:26 Baso # (Auto) 0.0 10^3/uL (0.0-0.1) 11/16/21 04:26 Nucleated RBC % (auto) 0 % 11/16/21 04: Nucleated RBCs # 0.0 /100WBC 11/16/21 04:26 PT 13.50 SECONDS (12.1-14.9) 11/14/21 04:40 INR 1.00 (0.8-1.2) 11/14/21 04:40 Sodium 135 mmol/L (136-145) L 11/17/21 02:35 Potassium 4.0 mmol/L (3.5-5.1) 11/17/21 02:35 Chloride 98 mmol/L (98-107) 11/17/21 02:35 Carbon Dioxide 25 mmol/L (22-29) 11/17/21 02:35 Anion Gap 16.0 (5-19) 11/17/21 02:35 BUN 67 mg/dL (8-23) H 11/17/21 02:35 Creatinine 12.3 mg/dL (0.7-1.2) H* 11/17/21 02:35 GFR Calculation 4.1 mL/min (90-130) L 11/17/21 02:35 Glucose 100 mg/dL (65-115) 11/17/21 02:35 Calculated Osmolality 299 mOsm/kg (285-295) H 11/17/21 02:35 Lactate 0.6 mmol/L (0.5-2.2) 11/13/21 18:20 Calcium 7.2 mg/dL (8.5-10.5) L 11/17/21 02:35 Phosphorus 6.7 mg/dL (2.5-4.5) H 11/14/21 04:40 Magnesium 2.1 mg/dL (1.7-2.3) 11/14/21 04:40 Iron 122 ug/dL (59-158) 11/13/21 22:34 TIBC 306.57359 mcg/dl 11/13/21 22:34 % Saturation 39.0 % (20-50) 11/13/21 22:34 Unsat Iron Binding > 184 ug/dL (112-347) 11/13/21 22:34 Ferritin 68009 ng/mL (30-400) H 11/13/21 22:34 Total Bilirubin 0.4 mg/dL (0.15-1.2) 11/14/21 04:40 AST 33 U/L (0-40) 11/14/21 04:40 ALT 50 U/L (0-41) H 11/14/21 04:40 Alkaline Phosphatase 123 IU/L (40-130) 11/14/21 04:40 Troponin T Baseline 99 ng/L (0-15) H 11/13/21 15:45 Troponin T 120 Minute 81.99 ng/L (0-15) H 11/13/21 18:20 Delta Troponin T -17.01 ABS# (0-10) L 11/13/21 18:20 Troponin T Hi Sens 6Hr 83.11 ng/L (0-15) H 11/13/21 22:34 Troponin T Hi Sens 6Hr Delta -15.89 ng/L (0-12) L 11/13/21 22:34 NT-Pro-B Natriuret Pep 2643 pg/mL (0-125) H 11/13/21 15:45 Total Protein 4.5 g/dL (6.6-8.7) L 11/14/21 04:40 Albumin 2.6 g/dL (3.5-5.2) L 11/14/21 04:40 Globulin 1.9 g/dL (1.3-4.6) 11/14/21 04:40 TSH 12.12 uIU/mL (0.27-4.20) H 11/13/21 15:45 Free T4 0.90 ng/dL (0.82-1.77) 11/13/21 15:45 PTH Intact 315.6 pg/mL (15-65) H 11/13/21 22:34 Calcium (PTH Intact) 6.6 mg/dL (8.5-10.5) L 11/13/21 22:34 Random Cortisol 10.79 ug/dL (2.47-19.5) 11/14/21 04:40 SARS-CoV-2 Ag (Rapid) Negative (Negative) 11/13/21 18:25 Vitals Last Vital Signs Temp 97.7 F 11/17/21 07:50 Pulse 91 11/17/21 07:50 Resp 16 11/17/21 07:50 BP 139/66 11/17/21 07:50 Pulse Ox 92 11/17/21 07:50 Discharge Plan Discharge Patient Disposition: Home Condition: Stable Prescriptions: New calcitriol 0.25 mcg Capsule 0.25 mcg PO DAILY Qty: 30 0RF calcium acetate [Calphron] 667 mg Tablet 1,334 mg PO TIDWM Qty: 30 0RF Continued carvedilol 25 mg tablet 25 mg PO BID 0RF Rx Instructions: must administer with a meal/food sevelamer carbonate [Renvela] 800 mg tablet 1,600 mg PO TID 0RF Rx Instructions: must administer with a meal/food neomycin-polymyxin B-dexameth 3.5 mg/g-10,000 unit/g-0.1 % ointment 1 applic ophthalmic (eye) ONCE 0RF Rx Instructions: space evenly during waking hours levothyroxine [Synthroid] 75 mcg tablet 75 mcg PO DAILY Qty: 30 2RF ondansetron 4 mg film 4 mg PO DAILY PRN (Reason: nausea and vomiting) Qty: 15 0RF pantoprazole 40 mg tablet,delayed release (DR/EC) 40 mg PO DAILY 0RF Vitamin B-6 100 mg Tablet 100 mg PO DAILY 0RF fluticasone propionate 50 mcg/actuation [place],Suspension 1 spray INTRANASAL DAILY PRN (Reason: Nasal Congestion) 0RF Rx Instructions: administer into each nostril Held Dialyvite 800 with Zinc 15 0.8-15 mg tablet 1 tab PO DAILY 0RF Hold Instructions: Resume on 11/21/21. Discontinued colchicine 0.6 mg tablet See Rx Instructions PO BID PRN (Reason: gout) 0RF Rx Instructions: 2tabs as first daily dose, then 1tab 1 hour later minoxidil 10 mg tablet 5 mg PO BID 0RF losartan 50 mg tablet 25 mg PO BID 0RF amlodipine 10 mg tablet 5 mg PO DAILY Qty: 0 0RF Discharge Orders: Discharge Order (Routine); Ordered 11/17/21 Ordered By: Essence Wong Referrals: [facility] [Other] - 11/18/21 1:45 pm (You will have Hemodialysis with [facility] on Sunday at 1:45pm. If you have any questions please contact them at [phone].) Bob Peñaloza MD [Primary Care Provider] - 11/22/21 11:00 am Discharge Diet: Cardiac Discharge Activity: Increase activity as tolerated Patient Instructions: Anemia, Hypertension, Hypotension (DC), End Stage Kidney Disease (DC), Metabolic Acidosis (GEN), Opioid Safety, Post Anesthesia Care Activity Restrictions/Additional Instructions: Please do not take minoxidil, losartan and high-dose amlodipine. Your low blood pressure was likely secondary to use of multiple antihypertensive medications. For now only used carvedilol 25 mg twice daily in case of sustained hypertension blood pressure above 140/90 you can add amlodipine 5 mg daily, please maintain a blood pressure log and show it to Dr. Peñaloza You will get dialyzed tomorrow at [facility] 1:45 PM appointment Discharge Attestations Time Spent in Discharge Care*: less than 30 min Status at Discharge: Cognitive status at discharge: cognitively intact , Behavioral status at discharge: cooperative , Quality Metrics Clinical Quality Measures [ No reported AMI, CVA or VTE this stay] Coding Level of Care Code Acute Chg FW DC note Diagnoses End stage renal disease N18.6 Hypotension I95.9 Anemia D64.9 Acquired hypothyroidism E03.9 Restless leg syndrome G25.81 History of peritoneal dialysis Z98.890 Goodpasture's disease M31.0 Hyperphosphatemia E83.39
--- NOTE | 2021-11-17 10:56 | PC.NURSE ---
Pt to dialysis.
[2021-11-17 15:03] VITALS: BP 142/74; BP 142/75; PULSE 75; PULSE 81; RESP 16; TEMP 37.1
[2021-11-17 15:28] VITALS: BP 142/75; PULSE 81; RESP 16; TEMP 37.1
--- NOTE | 2021-11-17 16:32 | P.PN_ITS ---
Subjective Subjective: Mr. Godinez is seen and examined during hemodialysis today. Doing well with dialysis. No acute new issues. Does feel a little bit better since hospitalization. Blood pressure looks good, robust now, not requiring vasopressor agents. No extremity edema, shortness of breath or other hypervolemic symptoms. Again, some subtle uremic symptoms as he does continue to feel fatigued. Vitals/I&O/Wt Last Vital Signs Temp 98.8 F 11/17/21 15:28 Pulse 81 11/17/21 15:28 Resp 16 11/17/21 15:28 BP 142/75 11/17/21 15:28 Pulse Ox 92 11/17/21 07:50 11/17/21 11/17/21 11/17/21 06:59 14:59 22:59 Intake Total 120 / 1030 240 / 240 300 / 540 Output Total 300 / 300 Balance 120 / 730 240 / 240 0 / 240 Weight last 48 hrs Weight 79.6 kg Weight 32.931 kg Weight 80.5 kg Weight 77.111 kg Physical Exam Narrative: Constitutional: Awake, comfortable HEENT: Wet mucosa, no jvp, non icteric Lungs: Bilaterally clear without discernible wheeze, rales in all lung zones CVS: S1 S2, no murmurs Abdo: Soft, BS ok, PD exit site looks good Ext 4: Minimal edema, peripheral perfusion with no cyanosis Neurological: Grossly non-focal Data : 11/16/21 04:26 11/17/21 02:35 Micro: Microbiology 11/16/21 19:05 Occult Blood (FIT) - Final Stool A&P Assessment and plan (1) Chronic kidney disease: Status: Acute Plan 1. End-stage renal disease on PD Seen on dialysis today I have convinced him to have a trial of hemodialysis for the next 2 weeks, rest 5 from PD. He may need up titration of his PD prescription as an outpatient as well. It is likely that he is lost a component of his residual renal function, however, I would have to see KT/V breakdown to know this. Case discussed with Dr. Abrams his outpatient music coordinator. 2. Hypotension He is overly under his dry weight due to very poor oral intake over the past 1 week which may be a consequence of urea and under dialysis. More robust now, dialysis with minimal UF 3. Hypocalcemia Surprisingly hypocalcemic, will give calcitriol and switch Renvela for PhosLo. 4. Anemia of ESRD Just following below goal, continue to monitor for the time being. 5. Disposition For DC after dialysis Markus Menchaca MD Nephrology [phone] Patient seen and examined via telemedicine, with the assistance of the bedside RN > 25 min spent in evaluation and mgmt of patient Attestations Medical Necessity Statement*: eval for eSRD mgmt Coding Level of Care Code Acute Corn Husk Baler for Chg Fwd Diagnoses Chronic kidney disease N18.9
[2021-11-18 16:22] LABS: Creatine Kinase BB Total None Detected (None Detected); Creatine Kinase MB Total 0 % (<5); Creatine Kinase MM Total 100 % (95-100)
== END 2021-11-17 15:30 | disposition home or self-care (01) | DRG 280 ==
LOC: ER 19:26 → ICU 19:36 → MEDSURG 11-16 17:12
PROVIDERS: Surgery; Admitting Provider Internal Medicine; Emergency Provider Emergency Medicine; PCP Family Medicine; Visit Provider Internal Medicine
PROC: 0JH63XZ Insertion of Tunneled Vascular Access Device into Chest Subcutaneous Tissue and Fascia, Percutaneous Approach (ICD-10-PCS; principal; 2021-11-16 09:55)
DX: I95.2 Hypotension due to drugs (principal); N18.6 End stage renal disease; I21.A1 Myocardial infarction type 2; I12.0 Hypertensive chronic kidney disease with stage 5 chronic kidney disease or end stage renal disease; N17.9 Acute kidney failure, unspecified; E87.1 Hypo-osmolality and hyponatremia; M31.0 Hypersensitivity angiitis; M62.82 Rhabdomyolysis; T46.5X5A Adverse effect of other antihypertensive drugs, initial encounter; Z99.2 Dependence on renal dialysis; W01.0XXA Fall on same level from slipping, tripping and stumbling without subsequent striking against object, initial encounter; D63.1 Anemia in chronic kidney disease; M10.9 Gout, unspecified; G25.81 Restless legs syndrome; E03.9 Hypothyroidism, unspecified; E78.1 Pure hyperglyceridemia; K76.0 Fatty (change of) liver, not elsewhere classified; E83.51 Hypocalcemia
CPT/HCPCS: 36415; 70450; 71045; 72125; 76000; 77001; 78452; 80048; 80053; 82252; 82274; 82310; 82533; 82728; 83540; 83550; 83605; 83735; 83880; 83970; 84100; 84439; 84443; 84484; 85025; 85610; 87040; 87426; 93005; 93017; 93306; 96360; 96365; 96366; 99214; 99215; 99284; 99291; A9500; C1750; J0610; J2250; J2704; J2785; J3010; J3370; J7030; J7040; J7050; P9041; Q3014

== ENCOUNTER 2021-12-01 10:21 | Outpatient (CLI) | payer MEDICARE, SELFPAY ==
--- NOTE | 2021-12-01 12:53 | CT_ITS ---
WS: [id number] CT ABDOMEN AND PELVIS NONCONTRAST HISTORY: chronic kidney disease TECHNIQUE: Imaging performed through the abdomen and pelvis. Coronal and sagittal reformats are submi tted. All CT scans at [facility] use at least one of these dose optimization techniques: auto mated exposure control; mA and/or kV adjustment per patient size (includes targeted exams where dose is matched to clinical indication); or iterative reconstruction. DLP: 1002.47 mGy-cm. COMPARISON: 02/20/2021 Lower thorax: Small bilateral pleural effusions. Subsegmental atelectasis at the RIGHT lung base. No mass or nodule. Mild enlargement of the heart. Liver: Heterogeneous appearance of the liver parenchyma. No mass identified. Surface is irregular. Gallbladder: Cholelithiasis. There is fluid around the gallbladder from the ascites. Pancreas: Normal size and attenuation. Normal pancreatic duct. No pancreatitis or mass. Spleen: Spleen is top normal size at 13.2 cm. Adrenal glands: Normal. No mass. Right kidney: Moderate atrophy. No obstruction. Left kidney: Moderate atrophy with no obstruction. Aorta: Moderate atherosclerotic plaque. No aneurysm. Moderate ascites throughout the abdomen and pelvis. There is also omental thickening which is probabl y related to the ascites and not carcinomatosis. The ascites may be related to peritoneal dialysis. T here is a peritoneal dialysis catheter coiled in the pelvis. No free air. GI tract: Moderately well distended stomach with fluid. The wall is thickened and edematous likely fr om the ascites. No GI tract obstruction. Mucosal submucosal wall thickening at the cecum Abdominal wall: Negative. No hernia. Pelvis: Peritoneal dialysis catheter coiled in the pelvis. Catheter within free fluid. Urinary bladde r is not very well distended. There are a few small lymph nodes along the inguinal regions which are not enlarged. Osseous structures: L5 anterolisthesis by 7 mm. Bilateral L5 pars defects. Moderate spondylitic gómez e lower lumbar spine. CT/CT abdomen pelvis wo con [id number] IMPRESSION: 1. Moderate amount of free fluid within the abdomen and pelvis may be related to the peritoneal dialysis. Ascites is new since 02/20/2022. 2. Configuration of the liver suggests cirrhosis. 3. Bilateral renal atrophy. 4. Cholelithiasis. Fluid surrounds the gallbladder but this is probably relate d to the ascites and not cholecystitis. 5. Cecal wall thickening cannot be further evaluated on this examination. This may be related to the adjacent ascites but an underlying neoplasm cannot be ex cluded on this appearance. Colonoscopy may be helpful. 6. Small bilateral pleural effusions.
== END 2021-12-01 10:22 | disposition home or self-care (01) ==
LOC: RAD 10:24
PROVIDERS: PCP Family Medicine; Visit Provider Internal Medicine Nephrology
DX: N17.9 Acute kidney failure, unspecified (principal); N18.9 Chronic kidney disease, unspecified; M31.0 Hypersensitivity angiitis
CPT/HCPCS: 74176; 84145

== ENCOUNTER 2022-01-05 07:06 | Outpatient (CLI) | payer MEDICARE, SELFPAY ==
--- NOTE | 2022-01-05 07:57 | ECG_ITS ---
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 Measurements Intervals [place] Rate: 48 P: 28 VT: 136 QRS: 48 QRSD: 93 T: 84 QT: 456 QTc: 410 Interpretive Statements SINUS BRADYCARDIA MODERATE ST DEPRESSION [0.05+ mV ST DEPRESSION] Compared to ECG 11/15/2021 09:50:34 ST (T wave) deviation now present Sinus rhythm no longer present Electronically Signed On 01-05-2022 21:20:04 CDT by Kirsten Alvarez M.D. [id number]
--- NOTE | 2022-01-05 08:25 | XR_ITS ---
WS: [id number] XR chest 2V* [id number] REASON FOR EXAM: KIDNEY TRANSPLANT EVALUATION/ESRD FINDINGS: Right internal jugular dialysis catheter with the distal most lumen tip at the level of the right atr ium. No change from 11/16/2021. Mild to moderate tortuosity the thoracic aorta. The heart size is normal. Calcified granulomatous disease in both hemithoraces. No active pulmonary parenchymal or pleural dise ase. Chest appears unchanged compared to 11/16/2021. XR/XR chest 2V* [id number] IMPRESSION: Stable chest without significant abnormality.
[2022-01-05 08:29] LABS: Basophils % 0.2 %; Hematocrit 32.4 % (42.0-52.0); Hemoglobin 10.8 g/dL (11.7-16.6); Lymphocytes # 0.5 10^3/uL (0.8-4.8); Lymphocytes % 8.5 %; Mean Corpuscular HGB Conc 33.3 g/dL (30.0-36.0); Mean Corpuscular Hemoglobin 33.1 pg (28.0-34.0); Mean Corpuscular Volume 99.4 fl (80-94); Mean Platelet Volume 9.4 fL (7.4-10.4); Monocytes # 0.1 10^3/uL (0.2-0.9); Monocytes % 2.2 %; Neutrophils # 5.49 10^3/uL (1.8-7.7); Neutrophils % 87.7 %; Nucleated Red Blood Cells % 0 %; Platelet Count 109 10^3/cmm (130-400); Red Blood Count 3.26 10^6/uL (4.1-5.3); Red Cell Distribution Width 16.6 % (12.1-15.1); White Blood Count 6.3 10^3/uL (4.0-10.0)
[2022-01-05 09:17] LABS: Alanine Aminotransferase 27 U/L (0-41); Albumin Level 3.6 g/dL (3.5-5.2); Alkaline Phosphatase 101 IU/L (40-130); Anion Gap 17.4 (5-19); Aspartate Amino Transferase 21 U/L (0-40); Blood Urea Nitrogen 61 mg/dL (8-23); Calcium 7.9 mg/dL (8.5-10.5); Carbon Dioxide 29 mmol/L (22-29); Chloride 98 mmol/L (98-107); Globulin 2.2 g/dL (1.3-4.6); Glomerular Filtration Rate 7.2 mL/min (90-130); Glucose 143 mg/dL (65-115); Osmolality Calculated 308 mOsm/kg (285-295); Phosphorus 4.1 mg/dL (2.5-4.5); Potassium 5.4 mmol/L (3.5-5.1); Sodium 139 mmol/L (136-145); Total Bilirubin 0.3 mg/dL (0.15-1.2); Total Protein 5.8 g/dL (6.6-8.7)
[2022-01-05 09:21] LABS: Parathyroid Hormone 494.1 pg/mL (15-65)
[2022-01-05 09:33] LABS: Hepatitis B Core AB, Total Non-Reactive (Nonreactive); Hepatitis B Surface AB 3.5 (11.5-1000); Hepatitis B Surface Antigen Non-Reactive (Nonreactive)
[2022-01-05 09:48] LABS: Calcium 7.9 mg/dL (8.5-10.5)
[2022-01-05 09:53] LABS: Hepatitis C Virus Antibody Non-Reactive (Nonreactive)
[2022-01-05 10:38] LABS: HIV 1 & 2 Antibody Non-Reactive (Non-Reactiv); HIV 1 & 2 Antigen Non-Reactive (Non-Reactiv)
--- NOTE | 2022-01-05 13:57 | PFTS_ITS ---
Date of Study:01/05/22 Date of Dictation: MECHANICS: Forced vital capacity (FVC) is normal. Forced expiratory volume in one second (FEV1) is normal. FEV1/FVC is normal. FLOW VOLUME LOOP: Normal. LUNG VOLUMES: Total lung capacity (TLC) is normal. Residual volume (RV) is normal. DIFFUSING CAPACITY FOR CARBON MONOXIDE: Normal. INTERPRETATION: The prebronchodilator spirometry is normal. No postbronchodilator spirometry was performed. Lung volumes are normal. Gas exchange (DLCO) is normal. MTDD
== END 2022-01-05 07:07 | disposition home or self-care (01) ==
PROVIDERS: PCP Family Medicine; Visit Provider Internal Medicine Pulmonary Disease
DX: M31.0 Hypersensitivity angiitis (principal); R06.02 Shortness of breath
CPT/HCPCS: 36415; 71046; 80053; 82310; 83970; 84100; 85025; 86704; 86706; 86803; 87340; 87806; 93005; 94010; 94618; 94726; 94729

== ENCOUNTER → 2022-01-19 15:30 | Outpatient (BNVA) | payer MEDICARE, SELFPAY | PROVIDERS: PCP Family Medicine; Visit Provider Internal Medicine Pulmonary Disease | DX: M31.0 Hypersensitivity angiitis (principal); R06.02 Shortness of breath; N18.6 End stage renal disease; Z99.2 Dependence on renal dialysis | CPT/HCPCS: 99214 ==

== ENCOUNTER 2022-02-14 09:06 | Outpatient (CLI) | payer MEDICARE, SELFPAY ==
--- NOTE | 2022-02-14 09:15 | US_ITS ---
WS: [id number] RIGHT UPPER QUADRANT ULTRASOUND HISTORY: concern for cirrhosis, cholelithiasis. COMPARISON: 10/04/2020 Liver: 15.2 cm in length. Normal size liver with mild diffuse coarse echotexture. No mass or bile mekhi t dilatation. Portal vein is mildly prominent but there is normal hepatopetal flow. Portal Vein: Normal hepatopetal flow with monophasic waveform. Gallbladder: Mildly contracted gallbladder with wall thickening. This is probably due to hepatocellul ar disease. No adjacent edema and no cholelithiasis. CBD: 0.5 cm Pancreas: Normal size and echogenicity. Right kidney: 8.9 cm in length. Low normal size kidney. There is mild diffuse cortical thinning with the cortex measuring 1.0 cm. Increased echogenicity throughout the kidney. No mass. There is a small amount of free fluid in Morison's pouch. Aorta and IVC: Unremarkable abdominal aorta and IVC. Small amount of ascites. US/US abdomen limited [id number] IMPRESSION: 1. No cholelithiasis. 2. Mild gallbladder wall thickening is probably on the basis of hepatocellular disease. 3. Small amount of ascites. 4. Mild RIGHT renal atrophy with mild chronic medical renal disease. Similar t o the prior study from 10/04/2020.
== END 2022-02-14 09:07 | disposition home or self-care (01) ==
LOC: RAD 09:07
PROVIDERS: PCP Family Medicine; Visit Provider Family Medicine
DX: K76.89 Other specified diseases of liver (principal); K80.20 Calculus of gallbladder without cholecystitis without obstruction; R18.8 Other ascites; N26.1 Atrophy of kidney (terminal); N18.9 Chronic kidney disease, unspecified
CPT/HCPCS: 76705

== ENCOUNTER 2022-02-28 08:18 | Outpatient (RCR) | payer MEDICARE, SELFPAY ==
[2022-02-27 14:05] LABS: Hemoglobin 6.4 g/dL (11.7-16.6)
--- NOTE | 2022-02-27 14:23 | PC.NURSE ---
Pt to GI lab for type and screen prior to blood transfusion. Critical Hg of 6.4 called to this nurse. Pt scheduled tomorrow at 0800 02/28/22 for 2 units PRBC's.
[2022-02-28] VITALS (9 sets, daily range): BP systolic 126–167; BP diastolic 67–97; PULSE 66–78; RESP 18; TEMP 36.3–36.4; O2SAT 97–100
[2022-02-28] MEDS: sodium chloride 0.9% (100 ml) 100 ML 10 ML ×2 (08:30→10:59)
== END 2022-03-17 23:59 | disposition home or self-care (01) ==
LOC: GILAB 08:18
PROVIDERS: PCP Family Medicine; Visit Provider Internal Medicine Nephrology
DX: D50.9 Iron deficiency anemia, unspecified (principal)
CPT/HCPCS: 36415; 36430; 85014; 85018; 86850; 86900; 86920; P9016; P9040

== ENCOUNTER → 2022-03-14 10:04 | Outpatient (BNVA) | payer MEDICARE, SELFPAY | PROVIDERS: PCP Family Medicine; Visit Provider Surgery | DX: N18.6 End stage renal disease (principal); Z99.2 Dependence on renal dialysis | CPT/HCPCS: 99213 ==

== ENCOUNTER → 2022-07-24 11:11 | Outpatient (BNVA) | payer MEDICARE, SELFPAY | PROVIDERS: PCP Family Medicine; Visit Provider Internal Medicine Pulmonary Disease | DX: R05.9 Cough, unspecified (principal); M31.0 Hypersensitivity angiitis; R06.02 Shortness of breath; N18.6 End stage renal disease; Z99.2 Dependence on renal dialysis; R09.82 Postnasal drip; K21.9 Gastro-esophageal reflux disease without esophagitis | CPT/HCPCS: 71046; 99214 ==

== ENCOUNTER 2022-08-02 13:01 | Outpatient (CLI) | payer MEDICARE, SELFPAY ==
--- NOTE | 2022-08-02 13:15 | XRR_ITS ---
PROCEDURE INFORMATION: Exam: XR Chest Exam date and time: 08/02/2022 1:25 PM Age: 66 years old Clinical indication: Condition or disease; Other: Good pasture syndrome; Prior surgery; Surgery date: 6+ months; Surgery type: Peritoneal dialysis catheter; Additional info: Good pasture syndrome/post hemorrhagic anemia TECHNIQUE: Imaging protocol: Radiologic exam of the chest. Views: 2 views. COMPARISON: CR XR chest 2V* [id number] 07/24/2022 11:15 AM FINDINGS: Lungs: Unremarkable. No consolidation. Pleural spaces: Unremarkable. No pleural effusion. No pneumothorax. Heart/Mediastinum: Unremarkable. No cardiomegaly. Bones/joints: Unremarkable. XR/XR chest 3V [id number] IMPRESSION: No acute findings.
== END 2022-08-02 13:02 | disposition home or self-care (01) ==
LOC: RAD 13:07
PROVIDERS: PCP Family Medicine; Visit Provider Internal Medicine Nephrology
DX: M31.0 Hypersensitivity angiitis (principal); D62 Acute posthemorrhagic anemia
CPT/HCPCS: 71047

== ENCOUNTER → 2022-12-12 17:44 | Outpatient (BNVA) | payer MEDICARE, SELFPAY | PROVIDERS: PCP Family Medicine; Visit Provider Internal Medicine Pulmonary Disease | DX: J30.2 Other seasonal allergic rhinitis (principal) | CPT/HCPCS: 82785; 86003; 99214 ==

== ENCOUNTER 2023-02-12 11:19 | Outpatient (CLI) | payer MEDICARE, SELFPAY ==
[2023-02-13 17:48] LABS: Alternaria Alternata (M6) Ige <0.10 kU/L; Alternaria Class 0; Aspergillus fumigatus <0.10 kU/L; Aspergillus fumigatus Class 0; Bermuda Class 0; Bermuda Grass (G2) Ige <0.10 kU/L; Cat Dander (E1) Ige <0.10 kU/L; Cat Dander Class 0; Cladosporium herbarum <0.10 kU/L; Cladosporium herbarum Class 0; Cockroach <0.10 kU/L; Cockroach Class 0; Common Ragweed (Short) (W1) Ig <0.10 kU/L; Cottonwood <0.10 kU/L; Cottonwood Class 0; D. Farinae Class 0/1; Dermatophagoides Class 0; Dermatophagoides Farinae (D2) 0.16 kU/L; Dermatophagoides Pteronyssinus <0.10 kU/L; Dog Dander (E5) Ige <0.10 kU/L; Dog Dander Class 0; Elm (T8) Ige <0.10 kU/L; Elm Class 0; Immunoglobulin E 17 kU/L (<OR=114); Maple (Box Elder) (T1) Ige <0.10 kU/L; Maple Class 0; Maple leaf sycamore Tree <0.10 kU/L; Maple leaf sycamore Tree Class 0; Mountain cedar <0.10 kU/L; Mountain cedar Class 0; Mouse Urine Proteins <0.10 kU/L; Mouse Urine Proteins Class 0; Oak (T7) Ige <0.10 kU/L; Oak Class 0; Pecan/Hickory Tree <0.10 kU/L; Pecan/Hickory Tree Class 0; Penicillium Class 0; Penicillium Notatum (M1) Ige <0.10 kU/L; Ragweeed Class 0; Rough Marsh Elder (W16) Ige <0.10 kU/L; Rough Marsh Elder Class 0; Rough pigweed <0.10 kU/L; Rough pigweed Class 0; Russian Thistle (W11) IgE <0.10 kU/L; Russian Thistle Class 0; Timothy Grass (G6) Ige <0.10 kU/L; Timothy Grass Class 0; Walnut Tree <0.10 kU/L; Walnut Tree Class 0; White Ash Tree <0.10 kU/L; White Ash Tree Class 0; White Mulberry <0.10 kU/L; White Mulberry Class 0
== END 2023-02-12 11:20 | disposition home or self-care (01) ==
PROVIDERS: PCP Family Medicine; Visit Provider Specialist
DX: R05.3 Chronic cough (principal)
CPT/HCPCS: 86003

== ENCOUNTER 2023-02-27 12:55 | Outpatient (CLI) | payer MEDICARE, SELFPAY ==
--- NOTE | 2023-02-27 13:50 | XR_ITS ---
WS: [id number] Exam: XR chest 2V* [id number] Date/Time of Exam: 02/27/2023 1:59 PM Reason For Exam: CHRONIC COUGH Comparison 08/02/2022. The lungs are hyperinflated and clear. Normal cardiomediastinal silhouette. No pleural effusions. Regional bony elements are intact. IMPRESSION: 1. No acute cardiopulmonary finding. No change. 2. Pulmonary hyperinflation which might indicate obstructive lung disease.
== END 2023-02-27 12:56 | disposition home or self-care (01) ==
PROVIDERS: PCP Family Medicine; Visit Provider Specialist
DX: R05.3 Chronic cough (principal)
CPT/HCPCS: 71046

== ENCOUNTER 2023-04-24 13:21 | Outpatient (CLI) | payer MEDICARE, SELFPAY ==
--- NOTE | 2023-04-24 13:28 | MR_ITS ---
WS: [id number] MRI THORACIC SPINE WITHOUT CONTRAST TECHNIQUE: Sagittal T1, T2 and STIR imaging. Axial T2 imaging. Noncontrast imaging obtained. CLINICAL INFORMATION: PRURITUS/PERIPHEAL NEUROPATHY COMPARISON: None FINDINGS: Tiny syrinx mid thoracic cord at T5-T9. Cord signal is otherwise normal. No significant cord expansi on. Mild thoracic curve. No acute compression. No high-grade central canal stenosis. Tiny central protrus ion T1-2. Small RIGHT foraminal protrusion T2-3 with mild RIGHT foraminal narrowing. Adrenal glands are normal. Bilateral renal cortical atrophy. Multicystic kidneys bilaterally. This is partially visualized. Moderate facet arthropathy mid and lower thoracic spine. Mild LEFT T9-T10 bony foraminal narrowing. M ild bilateral T10-11 bony foraminal narrowing. IMPRESSION: 1. Tiny syrinx or prominent central canal in the mid thoracic cord at T5-T9. Cord signal is otherwis e normal. No significant cord expansion. 2. Mild thoracic curve. No acute compression. No significant central canal stenosis. 3. Tiny central protrusion T1-2 and tiny RIGHT foraminal protrusion T2-3 with mild RIGHT foraminal n arrowing. 4. Moderate facet arthropathy mid lower thoracic spine. 5. Polycystic atrophic kidneys bilaterally.
--- NOTE | 2023-04-24 13:28 | MR_ITS ---
WS: [id number] MRI CERVICAL SPINE NONCONTRAST TECHNIQUE: Sagittal T1, T2 and STIR imaging. Axial T2, gradient, and fiesta imaging. CLINICAL INFORMATION: PRURITUS/PERIPHERAL NEUROPATHY COMPARISON: None. FINDINGS: Mild cervical curve. Straightening the normal cervical lordosis. Moderate spondylitic changes. Cord s ignal is normal. Disc space narrowing throughout the cervical spine worse at C3-C4 C4-C5 C5-C6 and C6 -C7. Endplate degenerative edema C3-4. C2-C3: Normal. C3-C4: Disc osteophyte complex with endplate ridging. Uncovertebral joint hypertrophy. Moderate LEFT and mild RIGHT bony foraminal narrowing. C4-C5: Disc osteophyte complex with endplate ridging. Mild central canal stenosis. Severe RIGHT and m ild LEFT bony foraminal narrowing. Mild facet arthropathy. Mild central canal stenosis. C5-C6: Disc osteophyte complex with endplate ridging. Mild central canal stenosis. Severe LEFT greate r than RIGHT bony foraminal narrowing. Moderate facet arthropathy with uncovertebral joint hypertroph y. C6-C7: Disc osteophyte complex with endplate ridging. Severe LEFT greater than RIGHT bony foraminal n arrowing. Moderate arthropathy. Mild central canal stenosis. C7-T1: Shallow central protrusion. Mild LEFT and no significant RIGHT foraminal narrowing. Spinal can al is patent. Tiny central protrusion. Visualized brain stem structures: Normal. Prevertebral soft tissues: Normal. IMPRESSION: 1. Straightening of the normal cervical lordosis. Moderate spondylitic changes. Cord signal is marsha l. 2. Mild central canal stenosis C4-C5 C5-C6 and C6-C7. 3. Moderate to severe bony foraminal narrowing worse at LEFT C3-C4, bilateral C4-5 worse on the RIGH T, bilateral C5-C6 and bilateral C6-7 worse on the LEFT.
== END 2023-04-24 13:22 | disposition home or self-care (01) ==
LOC: RAD 13:21
PROVIDERS: PCP Family Medicine; Visit Provider Internal Medicine Nephrology
DX: M47.817 Spondylosis without myelopathy or radiculopathy, lumbosacral region (principal); G62.9 Polyneuropathy, unspecified; Q61.4 Renal dysplasia; M25.78 Osteophyte, vertebrae; M46.92 Unspecified inflammatory spondylopathy, cervical region
CPT/HCPCS: 72141; 72146

== ENCOUNTER 2023-05-09 17:53 | Emergency (ER) | payer MEDICARE, SELFPAY ==
[2023-05-09 17:57] VITALS: RESP 16; TEMP 36.9; BMI 24.2
--- NOTE | 2023-05-09 17:58 | ECG_ITS ---
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 [id number]
--- NOTE | 2023-05-09 17:58 | XRR_ITS ---
PROCEDURE INFORMATION: Exam: XR Chest Exam date and time: 05/09/2023 6:07 PM Age: 67 years old Clinical indication: Chest wall pain; Additional info: Chest pain TECHNIQUE: Imaging protocol: Radiologic exam of the chest. Views: 1 view. COMPARISON: CR XR chest 2V* [id number] 02/27/2023 1:56 PM FINDINGS: Lungs: Unremarkable. No consolidation. Pleural spaces: Unremarkable. No pleural effusion. No pneumothorax. Heart/Mediastinum: Unremarkable. No cardiomegaly. Bones/joints: Unremarkable. XR/XR chest 1V portable [id number] IMPRESSION: No acute findings.
--- NOTE | 2023-05-09 18:01 | W.ED.CHESTPA ---
HPI - Chest Pain General: Chief Complaint: Chest Pain Stated Complaint: chest pain Time Seen by Provider: 05/09/23 17:57 History of Present Illness: Patient reports to the ER with chest pain that is really more epigastric like pain. Patient states he has had this for about a day and a half but it has gotten worse. Patient does state he has some nausea but no vomiting or diarrhea fever or sweating shortness of breath. Patient actually is been constipated the last 3 days but did take some prescription laxative and had a bowel movement today and actually passed gas in the room now feels a little better. Patient states he normally uses the bathroom and for bowel movement on a daily basis. Patient does do peritoneal dialysis. Review of Systems General: Reports: 10 or more systems reviewed and unremarkable except in HPI and below PFSH ED PFSH: Medical History Acquired hypothyroidism Acute kidney injury Anemia Chronic hypertension Chronic kidney disease End stage renal disease Goodpasture's disease Gout Hyperphosphatemia Metabolic acidosis Restless leg syndrome Surgical History H/O left inguinal hernia repair Laparoscopic extraperitoneal History of circumcision History of peritoneal dialysis Normal colonoscopy 03/2007 S/P hemodialysis catheter insertion Removed 12/24/2020 Family History Brother Cancer Prostate Other Osteoarthritis Osteoporosis Denies family history of Anesthesia complication Bleeding disorder Social History Smoking and tobacco/nicotine status: never used tobacco/nicotine Alcohol intake: current Alcohol intake frequency: holidays/special occasions only Substance/Drug Use: never Lives independently: Yes Household members: spouse Marital status: Current occupational status: employed Physical Exam Const: COMMON NORMALS: no acute distress, average body habitus, patient oriented x3, no limitations, healthy appearing, alert and well nourished HENMT: COMMON NORMALS: normocephalic, atraumatic, hearing grossly normal bilaterally, external ears normal, Normal external nose present, moist oral mucous membranes and oropharynx normal HEAD & SCALP: normocephalic and atraumatic NOSE: Normal external nose present EXTERNAL EAR: Yes external ears normal Neck/C-Spine: COMMON NORMALS: no JVD Chest: COMMONS NORMALS: normal inspection of the chest and normal palpation of entire chest wall Resp: COMMON NORMALS: normal respiratory effort, No retractions, No use of accessory muscles and clear to auscultation bilaterally AUSCULTATION: clear to auscultation bilaterally Cardio: COMMON NORMALS: no JVD, regular rate, regular rhythm, S1 normal heart sound present, S2 normal heart sound present, No gallops present (Cardio), No clicks present (Cardio), No murmurs present (Cardio) and No rub (Cardio) RATE: regular rate RHYTHM: regular rhythm HEART SOUNDS: S1 normal heart sound present and S2 normal heart sound present GI: COMMON NORMALS: Normal to inspection, nondistended, normoactive bowel sounds present, Soft to palpation, No hepatosplenomegaly present and no masses; negative for non-tender (Mildly tender to palpate over epigastric region which reproduces the pain.) PALPATION: Yes Soft to palpation and Yes No hepatosplenomegaly present Neuro: COMMON NORMALS: patient oriented x3 SENSORIUM/ORIENTATION: Yes alert Course Vital Signs: Vital signs: Vital Signs Temperature 98.5 F 05/09/23 17:57 Pulse Rate 78 05/09/23 21:01 Respiratory Rate 23 H 05/09/23 21:01 Blood Pressure 134/71 05/09/23 21:01 Pulse Oximetry 98 05/09/23 21:01 MDM - Chest Pain Medical Decision Making Patient presents to the ER with complaints of upper epigastric pain patient had a standard chest pain workup with the addition of abdominal x-ray. Patient is a peritoneal dialysis whose creatinine and BUN BUN was stable patient had elevated troponin but his delta was negligible. It is thought the patient may be constipated and this is where his pain is coming from. These results was discussed with the patient and I agree. Patient be discharged home to follow-up with his PCP on an as-needed basis. Differential Diagnosis Unlikely acute massive pulmonary embolism, acute respiratory failure, acute myocardial infarction, cardiac arrest or sudden cardiac Medical Records I reviewed the patient's medical records. Lab Data I reviewed the patient's lab results. 05/09/23 18:02 05/09/23 18:02 Radiology Impressions Chest X-Ray 05/09/23 17:58 IMPRESSION: No acute findings. Abdomen X-Ray 05/09/23 18:49 IMPRESSION: Nonobstructed bowel-gas pattern. Laboratory Results WBC 12.15 10^3/uL (3.29-11.43) H 05/09/23 18: RBC 3.09 10^6/uL (3.85-5.65) L 05/09/23 18: Hgb 10.40 g/dL (11.27-16.99) L 05/09/23 18: Hct 30.8 % (37-53) L 05/09/23 18: MCV 99.7 fl (82-101) 05/09/23 18: MCH 33.7 pg (27-33) H 05/09/23 18: MCHC 33.8 g/dL (30-55) 05/09/23 18: RDW 14.2 % (12.1-15.1) 05/09/23 18: Plt Count 276 10^3/cmm (157-399) 05/09/23 18: MPV 9.2 fL (7.4-10.4) 05/09/23 18:02 Neut % (Auto) 78.2 % 05/09/23 18: Lymph % (Auto) 10.5 % 05/09/23 18:02 [place] % (Auto) 7.6 % 05/09/23 18:02 Eos % (Auto) 1.4 % 05/09/23 18:02 Baso % (Auto) 0.5 % 05/09/23 18:02 Neut # (Auto) 9.51 10^3/uL (1.8-7.7) H 05/09/23 18:02 Lymph # (Auto) 1.3 10^3/uL (0.8-4.8) 05/09/23 18:02 [place] # (Auto) 0.9 10^3/uL (0.2-0.9) 05/09/23 18: Eos # (Auto) 0.2 10^3/uL (0.0-0.8) 05/09/23 18:02 Baso # (Auto) 0.1 10^3/uL (0.0-0.1) 05/09/23 18: Nucleated RBC % (auto) 0 % 05/09/23 18: Nucleated RBCs # 0.0 /100WBC 05/09/23 18:02 PT 13.40 SECONDS (12.1-14.9) 05/09/23 18:02 INR 0.99 (0.8-1.2) 05/09/23 18:02 Sodium 136 mmol/L (136-145) 05/09/23 18:02 Potassium 3.8 mmol/L (3.5-5.1) 05/09/23 18:02 Chloride 91 mmol/L (98-107) L 05/09/23 18:02 Carbon Dioxide 25 mmol/L (22-29) 05/09/23 18:02 Anion Gap 23.8 (5-19) H 05/09/23 18:02 BUN 58 mg/dL (8-23) H 05/09/23 18:02 Creatinine 12.3 mg/dL (0.7-1.2) H* 05/09/23 18:02 GFR Calculation 4.1 mL/min (90-130) L 05/09/23 18:02 Glucose 100 mg/dL (65-115) 05/09/23 18:02 Calculated Osmolality 298 mOsm/kg (285-295) H 05/09/23 18:02 Calcium 9.3 mg/dL (8.5-10.5) 05/09/23 18:02 Phosphorus 3.7 mg/dL (2.5-4.5) 05/09/23 18:02 Magnesium 2.1 mg/dL (1.7-2.3) 05/09/23 18:02 Total Bilirubin 0.4 mg/dL (0.15-1.2) 05/09/23 18:02 AST 25 U/L (0-40) 05/09/23 18:02 ALT 24 U/L (0-41) 05/09/23 18:02 Alkaline Phosphatase 101 U/L (40-130) 05/09/23 18:02 Troponin T Baseline 97 ng/L (0-15) H 05/09/23 18:02 Troponin T 120 Minute 90.64 ng/L (0-15) H 05/09/23 20:17 Delta Troponin T -6.36 ABS# (0-10) L 05/09/23 20:17 Total Protein 6.4 g/dL (6.6-8.7) L 05/09/23 18:02 Albumin 3.9 g/dL (3.5-5.2) 05/09/23 18:02 Globulin 2.5 g/dL (1.3-4.6) 05/09/23 18:02 All radiology interpretation(s) finalized by discharge EKG Data EKG 1: I personally reviewed and interpreted this EKG as follows: EKG interpretation date: 05/09/23 EKG interpretation time: 17:56 Prior EKG tracings: not available for review Interpretation: EKG showed ventricular rate 83 beats minute, IL interval 148, QRS duration 91, QTc of 427, sinus rhythm, Discharge Plan Discharge Patient Disposition: Home Clinical Impression: Abdominal pain, acute, epigastric, Acute constipation Condition: Stable Prescriptions: No Action carvedilol 25 mg tablet 25 mg PO BID Rx Instructions: must administer with a meal/food Dialyvite 800 with Zinc 15 0.8-15 mg tablet 1 tab PO DAILY Hold Instructions: Resume on 11/21/21. neomycin-polymyxin B-dexameth 3.5 mg/g-10,000 unit/g-0.1 % ointment 1 applic ophthalmic (eye) ONCE Rx Instructions: space evenly during waking hours amlodipine 10 mg tablet 10 mg PO DAILY Hold Instructions: Doctor's Order calcitriol 0.5 mcg capsule 0.5 mcg PO DAILY Rx Instructions: Take 1 capsule by mouth every day RenaPlex-D 800 mcg-12.5 mg -2,000 unit tablet 1 tab PO DAILY Rx Instructions: Take 1 tablet by mouth every day (on dialysis days, take after dialysis treatment) losartan 100 mg tablet 100 mg PO DAILY guaifenesin [Mucinex Fast-Max Chest-Congest] 100 mg/5 mL liquid 200 mg PO .Q12 PRN (Reason: cough) Qty: 473 2RF Pepto-Bismol Max St 525 mg/15 mL suspension 525 mg PO .Q12 PRN (Reason: cough) Qty: 118 2RF Rx Instructions: do not exceed 8 doses in a 24 hour period lorazepam [Ativan] 1 mg tablet 1 mg PO DAILY PRN (Reason: anxiety) Qty: 20 5RF Rx Instructions: Take 1/2 to tab daily as needed for anxiety/insomnia. triamcinolone acetonide 0.1 % cream 1 applic topical DAILY PRN (Reason: rash) Qty: 30 1RF levothyroxine [Synthroid] 88 mcg tablet 88 mcg PO DAILY Qty: 90 1RF azelastine-fluticasone 137-50 mcg/spray spray,non-aerosol 1 spray intranasal BID Qty: 23 3RF Rx Instructions: administer into each nostril albuterol sulfate 90 mcg/actuation HFA aerosol inhaler 2 puff inhalation Q6H PRN (Reason: shortness of breath or wheezing) Qty: 8.5 6RF sulfamethoxazole-trimethoprim [Bactrim DS] 800-160 mg tablet 1 tab PO BID 10 Days Qty: 20 0RF ondansetron 4 mg film 4 mg PO DAILY PRN (Reason: nausea and vomiting) Qty: 15 0RF pantoprazole 40 mg tablet,delayed release (DR/EC) 40 mg PO DAILY pyridoxine (vitamin B6) [Vitamin B-6] 100 mg Tablet 100 mg PO DAILY calcium acetate [Calphron] 667 mg Tablet 1,334 mg PO TIDWM Qty: 30 0RF Discharge Orders: Discharge ED (Routine); Ordered 05/09/23 Ordered By: Jerson An Referrals: Dylna Bray DO [Primary Care Provider] - 1 week Patient Instructions: Constipation (ED), Abdominal Pain (ED) Activity Restrictions/Additional Instructions: Please keep taking the bowel medicine for constipation your previous provider prescribed for you. Please follow-up with them within the next 7 days for further evaluation and treatment as needed. If your pain worsens or changes please feel free to return to the ER. Coding Level of Care Code ED Income Auditor for Candy Fallon
[2023-05-09 18:08] LABS: Basophils # 0.1 10^3/uL (0.0-0.1); Basophils % 0.5 %; Eosinophils # 0.2 10^3/uL (0.0-0.8); Eosinophils % 1.4 %; Hematocrit 30.8 % (37-53); Lymphocytes # 1.3 10^3/uL (0.8-4.8); Lymphocytes % 10.5 %; Mean Corpuscular HGB Conc 33.8 g/dL (30-55); Mean Corpuscular Hemoglobin 33.7 pg (27-33); Mean Corpuscular Volume 99.7 fl (82-101); Mean Platelet Volume 9.2 fL (7.4-10.4); Monocytes # 0.9 10^3/uL (0.2-0.9); Monocytes % 7.6 %; Neutrophils # 9.51 10^3/uL (1.8-7.7); Neutrophils % 78.2 %; Nucleated Red Blood Cells % 0 %; Platelet Count 276 10^3/cmm (157-399); Red Blood Count 3.09 10^6/uL (3.85-5.65); Red Cell Distribution Width 14.2 % (12.1-15.1); White Blood Count 12.15 10^3/uL (3.29-11.43)
[2023-05-09 18:22] LABS: INR 0.99 (0.8-1.2)
[2023-05-09 18:29] LABS: Troponin(5th) Baseline 97 ng/L (0-15)
[2023-05-09 18:35] LABS: Alanine Aminotransferase 24 U/L (0-41); Albumin Level 3.9 g/dL (3.5-5.2); Alkaline Phosphatase 101 U/L (40-130); Anion Gap 23.8 (5-19); Aspartate Amino Transferase 25 U/L (0-40); Blood Urea Nitrogen 58 mg/dL (8-23); Calcium 9.3 mg/dL (8.5-10.5); Carbon Dioxide 25 mmol/L (22-29); Chloride 91 mmol/L (98-107); Globulin 2.5 g/dL (1.3-4.6); Glomerular Filtration Rate 4.1 mL/min (90-130); Glucose 100 mg/dL (65-115); Osmolality Calculated 298 mOsm/kg (285-295); Potassium 3.8 mmol/L (3.5-5.1); Sodium 136 mmol/L (136-145); Total Bilirubin 0.4 mg/dL (0.15-1.2); Total Protein 6.4 g/dL (6.6-8.7)
--- NOTE | 2023-05-09 18:49 | XRR_ITS ---
PROCEDURE INFORMATION: Exam: XR Abdomen Exam date and time: 05/09/2023 7:02 PM Age: 67 years old Clinical indication: Abdominal pain; Acute; Additional info: Constipation TECHNIQUE: Imaging protocol: Radiologic exam of the abdomen. Views: Frontal supine view of the abdomen. 1 View. COMPARISON: CT abdomen pelvis con [id number] 12/01/2021 11:31 AM FINDINGS: Tubes, catheters and devices: There is a peritoneal dialysis catheter coiled in the pelvis. Gastrointestinal tract: Nonobstructed bowel-gas pattern. Vasculature: Atherosclerotic disease. Bones/joints: Unremarkable. XR/XR abdomen 1V* [id number] IMPRESSION: Nonobstructed bowel-gas pattern.
[2023-05-09 19:02] LABS: Magnesium 2.1 mg/dL (1.7-2.3); Phosphorus 3.7 mg/dL (2.5-4.5)
[2023-05-09 19:06] VITALS: BP 149/75; PULSE 82; RESP 26; O2SAT 98
[2023-05-09 20:50] LABS: Troponin 5 2HR 90.64 ng/L (0-15)
[2023-05-09 20:51] LABS: Troponin 5 2HR Delta -6.36 ABS# (0-10)
[2023-05-09 21:01] VITALS: BP 134/71; PULSE 78; RESP 23; O2SAT 98
[2023-05-09 21:25] VITALS: BP 146/79; PULSE 86; RESP 21; O2SAT 98
== END 2023-05-09 21:26 | disposition home or self-care (01) ==
PROVIDERS: Emergency Provider Emergency Medicine; PCP Family Medicine
DX: R10.13 Epigastric pain (principal); K59.00 Constipation, unspecified; I12.0 Hypertensive chronic kidney disease with stage 5 chronic kidney disease or end stage renal disease; N18.6 End stage renal disease
CPT/HCPCS: 36415; 71045; 74018; 80053; 83735; 84100; 84484; 85025; 85610; 93005; 93010; 99285

== ENCOUNTER → 2023-05-21 12:53 | Outpatient (BNVA) | payer MEDICARE, SELFPAY | PROVIDERS: PCP Family Medicine; Visit Provider Internal Medicine Pulmonary Disease | DX: R05.3 Chronic cough (principal); M31.0 Hypersensitivity angiitis; K21.9 Gastro-esophageal reflux disease without esophagitis; N18.6 End stage renal disease; E03.9 Hypothyroidism, unspecified | CPT/HCPCS: 84439; 84443; 99214 ==

== ENCOUNTER → 2023-08-23 10:58 | Outpatient (BNVA) | payer MEDICARE, SELFPAY | PROVIDERS: PCP Family Medicine; Visit Provider Family Medicine | DX: R11.2 Nausea with vomiting, unspecified (principal); R05.3 Chronic cough | CPT/HCPCS: 82785; 86003; 86008 ==

== ENCOUNTER 2023-10-18 10:06 | Outpatient (CLI) | payer MEDICARE, SELFPAY ==
--- NOTE | 2023-10-18 10:15 | CTR_ITS ---
PROCEDURE INFORMATION: Exam: CT Abdomen And Pelvis Without Contrast Exam date and time: 10/18/2023 10:46 AM Age: 67 years old Clinical indication: Screening exam; Prior surgery; Surgery date: 6+ months; Surgery type: Dialysis catheter; Patient HX: Transplant eval (pre op), on wait list x 3 years; Additional info: Transplant eval (pre op) TECHNIQUE: Imaging protocol: Computed tomography of the abdomen and pelvis without contrast. Radiation optimization: All CT scans at this facility use at least one of these dose optimization techniques: automated exposure control; mA and/or kV adjustment per patient size (includes targeted exams where dose is matched to clinical indication); or iterative reconstruction. COMPARISON: CT abdomen pelvis wo con [id number] 12/01/2021 11:31 AM RADIATION DOSE METRICS: Total DLP (mGy-cm): 336.07 FINDINGS: Tubes, catheters and devices: A peritoneal dialysis catheter lies in the pelvis and a large amount of peritoneal fluid is noted. Lungs: Lung bases are clear. No pleural effusion. Coronary arteries: Coronary artery calcifications are noted. Liver: Normal. No mass. Gallbladder and bile ducts: Normal. No calcified stones. No ductal dilation. Pancreas: Normal. No ductal dilation. Spleen: Normal. No splenomegaly. Adrenal glands: Normal. No mass. Kidneys and ureters: Both kidneys are atrophic. 2 cm left renal cyst is noted. Stomach and bowel: Unremarkable. No obstruction. No mucosal thickening. Appendix: No evidence of appendicitis. Intraperitoneal space: See Tubes, catheters and devices finding. Vasculature: The iliac arteries bilaterally demonstrate moderate calcified plaque. Lymph nodes: Unremarkable. No enlarged lymph nodes. Urinary bladder: There is chronic bladder wall thickening. Reproductive: The prostate gland is abnormally enlarged. Bones/joints: Unremarkable. No acute fracture. Soft tissues: Unremarkable. CT/CT kidney stone [id number] IMPRESSION: 1. Atrophic kidneys with small left renal cyst 2. Prostate enlargement with bladder wall thickening 3. Moderate calcified plaque involves the iliac arteries bilaterally 4. Coronary artery calcifications noted COMMENTS: Consistent with the [employer]'s Incidental Findings Committee white paper (J Am Shanta Radiol 2018): Any incidental renal lesion less than 1 cm or classified as too small to characterize, or any incidental cystic renal lesion characterized as simple-appearing, is likely benign. No follow-up imaging is recommended for these lesions per consensus recommendations based on imaging criteria.
== END 2023-10-18 10:07 | disposition home or self-care (01) ==
LOC: RAD 10:07
PROVIDERS: PCP Family Medicine; Visit Provider Family Medicine
DX: Z01.818 Encounter for other preprocedural examination (principal); N26.1 Atrophy of kidney (terminal); N28.1 Cyst of kidney, acquired; N40.0 Benign prostatic hyperplasia without lower urinary tract symptoms; I25.10 Atherosclerotic heart disease of native coronary artery without angina pectoris; I70.8 Atherosclerosis of other arteries
CPT/HCPCS: 74176

== ENCOUNTER → 2023-11-28 10:39 | Outpatient (BNVA) | payer MEDICARE, SELFPAY | PROVIDERS: PCP Family Medicine; Visit Provider Internal Medicine Pulmonary Disease | DX: R05.3 Chronic cough (principal); M31.0 Hypersensitivity angiitis; J45.991 Cough variant asthma | CPT/HCPCS: 99214 ==

== ENCOUNTER → 2023-12-26 07:50 | Outpatient (BNVA) | payer MEDICARE, SELFPAY | PROVIDERS: PCP Family Medicine; Visit Provider Nurse Practitioner Family | DX: L82.1 Other seborrheic keratosis (principal); L81.4 Other melanin hyperpigmentation; D22.5 Melanocytic nevi of trunk; L21.8 Other seborrheic dermatitis | CPT/HCPCS: 17000; 99204 ==

== ENCOUNTER → 2024-07-01 11:30 | Outpatient (BNVA) | payer MEDICARE, SELFPAY | PROVIDERS: PCP Family Medicine; Visit Provider Family Medicine | DX: E03.9 Hypothyroidism, unspecified (principal); Z94.0 Kidney transplant status; M31.0 Hypersensitivity angiitis; Z12.5 Encounter for screening for malignant neoplasm of prostate | CPT/HCPCS: 80053; 84439; 84443; 85027; G0103 ==

== ENCOUNTER → 2024-12-09 09:20 | Outpatient (BNVA) | payer MEDICARE, SELFPAY | PROVIDERS: PCP Family Medicine; Visit Provider Nurse Practitioner Family | DX: L57.8 Other skin changes due to chronic exposure to nonionizing radiation (principal); L81.4 Other melanin hyperpigmentation; D22.5 Melanocytic nevi of trunk; L82.1 Other seborrheic keratosis; D48.5 Neoplasm of uncertain behavior of skin; L57.0 Actinic keratosis | CPT/HCPCS: 11102; 17000; 99213 ==

== ENCOUNTER → 2025-04-09 14:00 | Outpatient (BNVA) | payer MEDICARE, SELFPAY | PROVIDERS: PCP Family Medicine; Visit Provider Family Medicine | DX: Z12.5 Encounter for screening for malignant neoplasm of prostate (principal); M31.0 Hypersensitivity angiitis; E03.9 Hypothyroidism, unspecified; Z94.0 Kidney transplant status; E83.42 Hypomagnesemia | CPT/HCPCS: 80053; 83735; 84439; 84443; 84481; 85025; G0103 ==